=== PATIENT | male | born 1955 | race Caucasian/White ===

== ENCOUNTER → 2019-07-29 | Outpatient (CLI) | payer MEDICARE, BC | LOC: CARD 13:49 | PROVIDERS: ATTEND Family Medicine | DX: I51.7 Cardiomegaly (principal) | CPT/HCPCS: 93306 ==

== ENCOUNTER → 2019-12-23 | Outpatient (CLI) | payer MEDICARE, BC, OTHER ==
[2019-12-23 15:09] LABS: CARBON DIOXIDE 26 MMOL/L (21-32); CHLORIDE 84 MMOL/L (98-107); POTASSIUM 4.7 MMOL/L (3.6-5.0); SODIUM 123 MMOL/L (135-145)
[2019-12-23 15:10] LABS: ALANINE AMINOTRANSFERASE 26 U/L (0-55); ALBUMIN 3.9 GM/DL (3.2-4.5); ALKALINE PHOSPHATASE 73 U/L (40-136); BILIRUBIN,TOTAL 0.6 MG/DL (0.1-1.0); BUN/CREATININE RATIO 19; CALCIUM 8.8 MG/DL (8.5-10.1); GFR ESTIMATED > 60; GLUCOSE 133 MG/DL (70-105); TOTAL PROTEIN 6.5 GM/DL (6.4-8.2)
== END ==
LOC: LAB FS 13:54
PROVIDERS: ATTEND Nurse Practitioner
DX: R39.198 Other difficulties with micturition (principal)
CPT/HCPCS: 36415; 80053; 84153; 84154

== ENCOUNTER 2020-05-30 09:04 | Emergency (ER) | payer MEDICARE, BC, OTHER ==
[~2020-05-30] VITALS: Ht 170.1 cm; Wt 138.6 kg
[2020-05-30 09:10] VITALS: BP 113/61
[2020-05-30] MEDS ORDERED: BACI28.35 TP (09:43)
--- NOTE | 2020-05-30 09:43 | ED Integumentary General ---
General Chief Complaint: Skin/Wound Problems Stated Complaint: FINGER INJ Source: patient History of Present Illness Date Seen by Provider: May 30, 2020 Time Seen by Provider: 09:10 Initial Comments 65-year-old male presents with swelling and pain of his left ring finger as well as his ring has become increasingly tight over the past several years. Recently more swelling and has become intolerable pain as well as a wound that he noted around the ring. Allergies and Home Medications Home Medications Bacitracin/Polymyxin B Sulfate 28.3 Gm Oint...g., 28.3 GM TP BID Prescribed by: JULIENNE LYONS on 05/30/20 0943 Patient Home Medication List Home Medication List Reviewed: Yes Review of Systems Review of Systems Constitutional: No dizziness, No fever, No malaise, No weakness Musculoskeletal: other (Pain Left ring finger w ring entrapment) Past Sxfuymx-Bzmsnn-Isqfvh Hx Patient Social History Recent Foreign Travel: No Contact w/Someone Who Travel: No Physical Exam Vital Signs Capillary Refill : General Appearance: WD/WN, no apparent distress Extremities: normal range of motion, normal capillary refill, swelling (LH- ring finger), other (tight ring w moderate swelling. Patient requests removal. small skin wound without cellulitis at base of finger adjacent to ring. ) Neurologic/Psychiatric: no motor/sensory deficits Procedures/Interventions Progress Ring removed by nurse w manual ring cutter. pt tolerated well. Finger re- examined post removal. No significant wound and no sign of cellulitis. NVI Departure Impression Primary Impression: Tight ring on finger Additional Impression: Wound, open, finger Qualified Codes: S61.209A - Unspecified open wound of unspecified finger without damage to nail, initial encounter Disposition: 01 HOME, SELF-CARE Condition: Improved Departure-Patient Inst. Decision time for Depature: 09:42 Referrals: SELF,MATI FELIPE (PCP/Family) Primary Care Physician Patient Instructions: Wound Infection Scripts Bacitracin/Polymyxin B Sulfate (Polysporin Ointment) 28.3 Gm Oint...g. 28.3 GM TP BID, #1 TUBE Prov: JULIENNE LYONS DO 05/30/20 JULIENNE LYONS DO May 30, 2020 09:43
== END 2020-05-30 09:45 | disposition home or self-care (01) ==
LOC: EDUNIT# 09:04 → ER FS 09:06
DX: S60.445A External constriction of left ring finger, initial encounter (principal); S61.205A Unspecified open wound of left ring finger without damage to nail, initial encounter; W49.04XA Ring or other jewelry causing external constriction, initial encounter
CPT/HCPCS: 99282

== ENCOUNTER → 2020-06-21 | Outpatient (CLI) | payer MEDICARE, BC, OTHER ==
[~2020-06-21] MED LIST: BACI28.35 TP
--- NOTE | 2020-06-21 15:08 | Diagnostic Imaging Report ---
INDICATION: Back pain. EXAMINATION: Three views were obtained. FINDINGS: The alignment of the lumbar spine is normal. Vertebral body heights are well-maintained. No spondylolysis or spinal listhesis. No fractures are identified. There is lower lumbar hypertrophic degenerative facet disease. IMPRESSION: Diffuse lumbar spondylosis and multilevel degenerative disc disease as described. Dictated by: Dictated on workstation # [id number]
--- NOTE | 2020-06-21 15:31 | Diagnostic Imaging Report ---
INDICATION: Right shoulder pain. AP, and transscapular views of the right shoulder are obtained. No fracture or dislocation is seen. There is degenerative change of the glenohumeral joint and AC joint. IMPRESSION: Degenerative findings with no acute abnormality. Dictated by: Dictated on workstation # [id number]
== END ==
LOC: RAD FS 14:13
PROVIDERS: ATTEND Family Medicine
DX: M47.816 Spondylosis without myelopathy or radiculopathy, lumbar region (principal); M51.36 Other intervertebral disc degeneration, lumbar region; M19.011 Primary osteoarthritis, right shoulder
CPT/HCPCS: 72100; 73030

== ENCOUNTER 2020-07-02 05:37 | Inpatient (IN) | payer MEDICARE, BC, OTHER ==
[~2020-07-02] VITALS: Ht 177.8 cm; Wt 125.5 kg
--- NOTE | 2020-07-02 05:46 | NUR ---
This RN and Hermelinda RN were in the room speaking with the patient. Patient is very confused and will not answer questions appropriately. This RN asks the patient to lift up his right arm. Patient is unable to do so. Hermelinda RN holds patients arm in the air and asks him to hold it there for stroke assessment tool. Patient began to yell out. Arms went straight out and were stiff. Patient began holding breath and all muscles were tense. Patient is incontinent. Dr. Lopez comes in the room. 2mg of Ativan pulled and given for seizure activity.
[2020-07-02] MEDS ORDERED: LORazepam INJ 2 MG/ML (ATIVAN) VIAL ONE (05:47)
[2020-07-02] MEDS ORDERED: NALOXONE 0.4 MG/ML 1 ML (NARCAN) VIAL ONE (05:49)
[2020-07-02] MEDS ORDERED: NS IV 1000 ML 1,000 ML ONE (05:50)
[2020-07-02] MEDS ORDERED: LEVETIRACETAM INJECTION 1,000 MG in NS (IVPB) 100 ML IV STA (05:56)
[2020-07-02] MEDS ORDERED: NS IV 1000 ML 1,000 ML IV SCH (06:00)
[2020-07-02] MEDS ORDERED: LORazepam INJ 2 MG/ML (ATIVAN) VIAL IVP ONE ×3 (06:00→06:45)
[2020-07-02] MEDS ORDERED: NALOXONE 0.4 MG/ML 1 ML (NARCAN) VIAL IV ONE (06:00)
--- NOTE | 2020-07-02 06:02 | ED General ---
General Chief Complaint: Altered Mental Status Stated Complaint: FALL Source of Information: EMS, EMS Notes Reviewed, Family, Old Records, RN/MD, RN Notes Reviewed Exam Limitations: Other (mental status change) History of Present Illness Date Seen by Provider: Jul 02, 2020 Time Seen by Provider: 05:45 Initial Comments This patient is a 65-year-old male that presents to the emergency department complaining of mental status change. EMS was called facility with patient about home city the appear to be altered. Patient does take hydrocodone for chronic pain issues. Family member reports the patient's abdomen SINCE LAST NIGHT. UPON ARRIVAL TO THE EMERGENCY DEPARTMENT PATIENT AND GLUCOSE 172. PATIENT SUBSEQUENTLY APPEARED TO HAVE SEIZURE-LIKE ACTIVITY. PATIENT HAS NO HISTORY OF SEIZURE LIKE ACTIVITY HOWEVER HAS COMPLAINED OF HEADACHE FOR THE PAST 3-4 DAYS.. PATIENT SUBSEQUENTLY WENT POSTICTAL STILL HAVING NYSTAGMUS. PATIENT'S RESPIRATORY RATE APPEARS TO BE AROUND 20-2200% SAT. DID SUCTION AIRWAY DUE TO MUCUS. PULSE ox 100% on 2 L by nasal cannula. Patient does appear to have blood pressure 169/71. Pulse rate 73. Patient given one Ativan for Narcan. We'll do medical screening exam and evaluate treat further as needed. Again patient has no history of seizure activity Family reports in the past long-arm, alcoholic and usually drinks 1.75 L of o xygen over 2 day period. Family member state the patient did not have any alcohol yesterday. Family reports that the patient has had withdrawal seizures in the past. Timing/Duration: 4-6 Hours Severity: Moderate Associated Systoms: Seizure Allergies and Home Medications Allergies Coded Allergies: No Known Drug Allergies (Unverified , 05/30/20) Home Medications Bacitracin/Polymyxin B Sulfate 28.3 Gm Oint...g., 28.3 GM TP BID Prescribed by: JULIENNE LYONS on 05/30/20 0929 Patient Home Medication List Home Medication List Reviewed: Yes Review of Systems Review of Systems Constitutional: No no symptoms reported; see HPI; No chills, No diaphoresis, No dizziness, No fever; malaise; No weakness, No weight gain, No weight loss, No other EENTM: No see HPI, No no symptoms reported, No ear discharge, No hearing loss, No ear pain, No blurred vision, No double vision, No eye pain, No tearing, No vision loss, No dental problems, No hoarseness, No mouth pain, No mouth swelling, No epistaxis, No nose congestion, No nose pain, No throat pain, No throat swelling, No other Respiratory: No no symptoms reported, No see HPI, No cough, No dyspnea on exertion, No hemoptysis; orthopnea; No phlegm, No short of breath, No stridor, No wheezing, No other Cardiovascular: No no symptoms reported, No see HPI, No chest pain, No edema, No Hx of Intervention, No palpitations, No syncope, No vascular heart diseas, No other Gastrointestinal: No RUQ, No LUQ, No RLQ, No LLQ, No no symptoms reported, No see HPI, No abdominal pain, No constipation, No diarrhea, No dysphagia, No hematemesis, No heartburn, No jaundice, No loss of appetite, No melena, No nausea, No vomiting, No other Genitourinary: No no symptoms reported, No see HPI, No decreased output, No discharge, No dysuria, No frequency, No hematuria, No hesitancy, No inco ntinence, No nocturia, No pain, No other Musculoskeletal: No no symptoms reported; see HPI, back pain; No gout, No joint pain, No joint swelling, No muscle pain, No muscle stiffness, No muscle cramps, No muscle twitching, No muscle weakness, No neck pain, No other Skin: No no symptoms reported, No see HPI, No change in color, No change in hair/nails, No dryness, No hx of skin cancer, No lesions, No lumps, No pruritus, No rash, No other Psychiatric/Neurological: Denies No Symptoms Reported; See HPI; Denies Anxiety, Denies Depressed, Denies Emotional Problems, Denies Headache, Denies Numbness, Denies Paresthesia, Denies Pre-Existing Deficit; Seizure; Denies Tingling, Denies Tremors, Denies Weakness, Denies Other Hematologic/Lymphatic: Denies No Symptoms Reported, Denies See HPI, Denies Anemia, Denies Blood Clots, Denies Easy Bleeding, Denies Easy Bruising, Denies Swollen Glands, Denies Other All Other Systems Reviewed Negative Unless Noted: Yes Past Ekagqlc-Viuoui-Urwgmc Hx Patient Social History Alcohol Beverage of Choice: Vodka Type Used: Cigars Former Smoker, Quit: Apr 07, 2020 2nd Hand Smoke Exposure: Yes Recent Foreign Travel: No Contact w/Someone Who Travel: No Immunizations Up To Date Tetanus Booster (TDap): Unknown Physical Exam Vital Signs Vital Signs - First Documented 07/02/20 05:40 Pulse 71 Resp 18 Pulse Ox 99 O2 Delivery Nasal Cannula O2 Flow Rate 4.00 Capillary Refill : Height, Weight, BMI Height: '" Weight: lbs. oz. kg; 47.00 BMI Method: General Appearance: Obese, Other (altered mentation postictal) HEENT: TMs Normal, Normal ENT Inspection, Pharynx Normal Respiratory: Chest Non Tender, Lungs Clear, Normal Breath Sounds, No Accessory Muscle Use, No Respiratory Distress Cardiovascular: Regular Rate, Rhythm, No Edema, No Gallop, No JVD, No Murmur, Normal Peripheral Pulses Gastrointestinal: Normal Bowel Sounds, No Organomegaly, No Pulsatile Mass, Non Tender, Soft, Other (patient is morbidly obese) Neurologic/Psychiatric: Other (altered mental status. Patient moans spo ntaneously.) Skin: Normal Color, Warm/Dry Focused Exam Lactate Level 07/02/20 06:27: Lactic Acid Level 7.48*H Lactic Acid Level Laboratory Tests Test 07/02/20 06:27 Lactic Acid Level 7.48 MMOL/L (0.50-2.00) *H Progress/Results/Core Measures Suspected Sepsis SIRS Temperature: Pulse: Respiratory Rate: Laboratory Tests 07/02/20 05:50: White Blood Count 5.2 Blood Pressure / Mean: 07/02/20 06:27: Lactic Acid Level 7.48*H Laboratory Tests 07/02/20 05:50: Creatinine 5.99H, INR Comment 1.2, Platelet Count 111L, Total Bilirubin 2.0H Results/Orders Lab Results Laboratory Tests Test 07/02/20 05:50 07/02/20 06:27 07/02/20 06:34 07/02/20 07:05 Range/Units White Blood Count 5.2 4.3-11.0 10^3/uL Red Blood Count 2.80 L 4.35-5.85 10^6/uL Hemoglobin 9.9 L 13.3-17.7 G/DL Hematocrit 29 L 40-54 % Mean Corpuscular Volume 105 H 80-99 FL Mean Corpuscular Hemoglobin 35 H 25-34 PG Mean Corpuscular Hemoglobin Concent 34 32-36 G/DL Red Cell Distribution Width 16.7 H 10.0-14.5 % Platelet Count 111 L 130-400 10^3/uL Mean Platelet Volume 10.4 7.4-10.4 FL Immature Granulocyte % (Auto) 1 % Neutrophils (%) (Auto) 78 H 42-75 % Lymphocytes (%) (Auto) 12 12-44 % Monocytes (%) (Auto) 6 0-12 % Eosinophils (%) (Auto) 4 0-10 % Basophils (%) (Auto) 0 0-10 % Neutrophils # (Auto) 4.1 1.8-7.8 X 10^3 Lymphocytes # (Auto) 0.6 L 1.0-4.0 X 10^3 Monocytes # (Auto) 0.3 0.0-1.0 X 10^3 Eosinophils # (Auto) 0.2 0.0-0.3 10^3/uL Basophils # (Auto) 0.0 0.0-0.1 10^3/uL Immature Granulocyte # (Auto) 0.0 0.0-0.1 10^3/uL Prothrombin Time 15.8 H 12.2-14.7 SEC INR Comment 1.2 0.8-1.4 Sodium Level 126 L 135-145 MMOL/L Potassium Level 4.3 3.6-5.0 MMOL/L Chloride Level 83 L 98-107 MMOL/L Carbon Dioxide Level 17 L 21-32 MMOL/L Anion Gap 26 H 5-14 MMOL/L Blood Urea Nitrogen 70 H 7-18 MG/DL Creatinine 5.99 H 0.60-1.30 MG/DL Estimat Glomerular Filtration Rate 9 BUN/Creatinine Ratio 12 Glucose Level 169 H 70-105 MG/DL Calcium Level 8.8 8.5-10.1 MG/DL Corrected Calcium 9.0 8.5-10.1 MG/DL Total Bilirubin 2.0 H 0.1-1.0 MG/DL Aspartate Amino Transf (AST/SGOT) 30 5-34 U/L Alanine Aminotransferase (ALT/SGPT) 28 0-55 U/L Alkaline Phosphatase 138 H 40-136 U/L Troponin I < 0.30 <0.30 NG/ML Pro-B-Type Natriuretic Peptide 1710.0 H <75.0 PG/ML Total Protein 7.5 6.4-8.2 GM/DL Albumin 3.7 3.2-4.5 GM/DL Serum Alcohol < 10 <10 MG/DL Lactic Acid Level 7.48 *H 0.50-2.00 MMOL/L Urine Color DARK YELLOW Urine Clarity CLEAR Urine pH 5.5 5-9 Urine Specific [place] 1.025 H 1.016-1.022 Urine Protein 1+ H NEGATIVE Urine Glucose (UA) NEGATIVE NEGATIVE Urine Ketones NEGATIVE NEGATIVE Urine Nitrite NEGATIVE NEGATIVE Urine Bilirubin 1+ H NEGATIVE Urine Urobilinogen 1.0 < = 1.0 MG/DL Urine Leukocyte Esterase TRACE H NEGATIVE Urine RBC (Auto) 2+ H NEGATIVE Urine RBC NONE /HPF Urine WBC 5-10 H /HPF Urine Squamous Epithelial Cells 2-5 /HPF Urine Crystals PRESENT H /LPF Urine Amorphous Sediment LARGE HARRISON URATES H /LPF Urine Bacteria FEW H /HPF Urine Casts PRESENT /LPF Urine Hyaline Casts 5-10 H /LPF Urine Mucus NEGATIVE /LPF Urine Culture Indicated YES Urine Opiates Screen POSITIVE H NEGATIVE Urine Oxycodone Screen NEGATIVE NEGATIVE Urine Methadone Screen NEGATIVE NEGATIVE Urine Propoxyphene Screen NEGATIVE NEGATIVE Urine Barbiturates Screen NEGATIVE NEGATIVE Ur Tricyclic Antidepressants Screen NEGATIVE NEGATIVE Urine Phencyclidine Screen NEGATIVE NEGATIVE Urine Amphetamines Screen NEGATIVE NEGATIVE Urine Methamphetamines Screen NEGATIVE NEGATIVE Urine Benzodiazepines Screen NEGATIVE NEGATIVE Urine Cocaine Screen NEGATIVE NEGATIVE Urine Cannabinoids Screen POSITIVE H NEGATIVE Blood Gas Puncture Site LEFT WRIST Blood Gas Patient Temperature 35.9 Arterial Blood pH 7.32 *L 7.37-7.43 Arterial Blood Partial Pressure CO2 41 35-45 MMHG Arterial Blood Partial Pressure O2 95 H 79-93 MMHG Arterial Blood HCO3 21 L 23-27 MMOL/L Arterial Blood Total CO2 22.4 21.0-31.0 MMOL/L Arterial Blood Oxygen Saturation 97 94-100 % Arterial Blood Base Excess -4.7 L -2.5-2.5 MMOL/L Pernell Test NEG Blood Gas Ventilator Setting NO Blood Gas Inspired Oxygen 99 My Orders Orders - AYDE ROMERO MD Ct Head Wo (07/02/20 05:52) Cbc With Automated Diff (07/02/20 05:52) Comprehensive Metabolic Panel (07/02/20 05:52) Chest 1 View Ap/Pa Only (07/02/20 05:52) Drug Screen Stat (Urine) (07/02/20 05:52) Urinalysis (07/02/20 05:52) Lactic Acid Analyzer (07/02/20 05:52) Arterial Blood Gas (07/02/20 05:52) Protime With Inr (07/02/20 05:52) Probnp Fs (07/02/20 05:52) Troponin I Fs (07/02/20 05:52) Lorazepam Injection (Ativan Injection) (07/02/20 06:00) Ns Iv 1000 Ml (Sodium Chloride 0.9%) (07/02/20 06:00) Naloxone Injection (Narcan Injection) (07/02/20 06:00) Lorazepam Injection (Ativan Injection) (07/02/20 06:00) Levetiracetam Injection (Keppra Injectio (07/02/20 05:56) Ekg Tracing (07/02/20 06:11) Ed Iv/Invasive Line Start (07/02/20 06:20) Lorazepam Injection (Ativan Injection) (07/02/20 06:45) Alcohol (07/02/20 06:39) Ziprasidone Injection (Geodon Injection) (07/02/20 06:46) Water (Sterile) For Injection (Sterile W (07/02/20 06:47) Ns Iv 500 Ml (Sodium Chloride 0.9%) (07/02/20 06:47) Ziprasidone Injection (Geodon Injection) (07/02/20 06:47) Ziprasidone Injection (Geodon Injection) (07/02/20 07:00) Urine Culture (07/02/20 06:34) Ziprasidone Injection (Geodon Injection) (07/02/20 07:00) Ceftriaxone For Iv Use (Rocephin For I (07/02/20 07:15) Blood Culture (07/02/20 07:03) Medications Given in ED Current Medications Medications Dose Ordered Sig/Ngozi Route Start Time Stop Time Status Last Admin Dose Admin Ceftriaxone Sodium 1000 mg/ Sterile Water 10 ml @ 200 mls/hr ONCE ONCE IV 07/02/20 07:15 07/02/20 07:17 DC 07/02/20 07:22 200 MLS/HR Lorazepam 1 mg ONCE ONCE IVP 07/02/20 06:45 07/02/20 06:46 DC 07/02/20 06:42 1 MG Lorazepam 2 mg ONCE ONCE IVP 07/02/20 06:00 07/02/20 06:01 DC 07/02/20 05:59 2 MG Naloxone HCl 0.4 mg ONCE ONCE IV 07/02/20 06:00 07/02/20 06:01 DC 07/02/20 05:59 0.4 MG Sterile Water 10 ml @ ud STK-MED ONCE .ROUTE 07/02/20 06:47 07/02/20 06:48 DC 07/02/20 07:07 1 MLS/HR Ziprasidone 20 mg STK-MED ONCE IM 07/02/20 06:46 07/02/20 06:47 DC 07/02/20 07:06 20 MG Vital Signs/I&O 07/02/20 05:40 Pulse 71 Resp 18 B/P (MAP) Pulse Ox 99 O2 Delivery Nasal Cannula O2 Flow Rate 4.00 Capillary Refill : Progress Note : Time: 07:06 Progress Note Patient is awake but does appear to be some combativeness issues. Patient has received a total of 3 of Ativan thousand Keppra and we'll give to the Arleen. Patient pulling his Fernandez and is IV catheters. Appears patient has had a withdrawal seizure related to alcohol abuse. Patient also appears to be in acute renal failure. Creatinine is 5.99. Baseline creatinine back in December 2019 creatinine was 0.70. Patient reportedly drinks 1.75 L of vodka every 2 days. Has not had any alcohol in greater than 24 hours. Patient's sodium level was low at 126 which appears to be chronic and consistent with patient's history. Patient does have a lactic acid level of 7.48 does not appear to be septic. Patient has had 1 L fluid bolus was running in the 100 and hour normal saline at this time. Blood cultures have been drawn and patient be given 1 g of Rocephin. But again I do not believe this patient is septic. Believe most likely the lactic acid level is most likely related to severe dehydration. I will discuss at length with hospitalist for transfer to [facility]. 0715 I have discussed with Dr. Ernst [facility]. We discussed patient's case. She is agreeable to accept this patient for transfer to the ICU. Patient be transferred as soon as possible. ECG Initial ECG Impression Date: Jul 02, 2020 Initial ECG Impression Time: 05:53 Initial ECG Rate: 71 Initial ECG Intervals: Normal Initial ECG Impression: Nonspecific Changes Comment Sinus rhythm heart rate 71 nonspecific EKG changes Departure Impression Primary Impression: Observed seizure-like activity Additional Impressions: Alcohol withdrawal seizure Alcohol withdrawal delirium Acute renal failure Acute dehydration Lactic acidosis Chronic hyponatremia Chronic pain Chronic alcohol abuse Disposition: 02 XFER SHT-TRM HOSP Condition: Stable Admissions Decision to Admit Reason: Admit from ER (General) Decision to Admit/Date: Jul 02, 2020 Time/Decision to Admit Time: 07:15 Transfer Transfer Reason: Exceeds level of care Time Spoke to Accepting Phy: 07:[address] Ernst [facility] has accepted this patient for transfer Transfer Time: 07:15 Transfer Facility: [facility] Method of Transfer: EMS Departure-Patient Inst. Referrals: MATI GRAHAM MD (PCP/Family) Primary Care Physician AYDE ROMERO MD Jul 02, 2020 06:02
[2020-07-02 06:06] LABS: HEMATOCRIT 29 % (40-54); HEMOGLOBIN 9.9 G/DL (13.3-17.7); MEAN CORPUSCULAR HEMOGLOBIN 35 PG (25-34); MEAN CORPUSCULAR HGB CONC 34 G/DL (32-36); MEAN CORPUSCULAR VOLUME 105 FL (80-99); WHITE BLOOD COUNT 5.2 10^3/uL (4.3-11.0)
[2020-07-02 06:07] LABS: BASOPHILS % (AUTO) 0 % (0-10); EOSINOPHILS # (AUTO) 0.2 10^3/uL (0.0-0.3); EOSINOPHILS % (AUTO) 4 % (0-10); LYMPHOCYTES # (AUTO) 0.6 X 10^3 (1.0-4.0); LYMPHOCYTES % (AUTO) 12 % (12-44); MEAN PLATELET VOLUME 10.4 FL (7.4-10.4); MONOCYTES # (AUTO) 0.3 X 10^3 (0.0-1.0); MONOCYTES % (AUTO) 6 % (0-12); NEUTROPHILS # (AUTO) 4.1 X 10^3 (1.8-7.8); NEUTROPHILS % (AUTO) 78 % (42-75); PLATELET COUNT 111 10^3/uL (130-400)
[2020-07-02 06:15] LABS: PROTHROMBIN TIME PATIENT 15.8 SEC (12.2-14.7)
[2020-07-02 06:16] LABS: INR 1.2 (0.8-1.4)
[2020-07-02 06:26] LABS: ALANINE AMINOTRANSFERASE 28 U/L (0-55); ALBUMIN 3.7 GM/DL (3.2-4.5); ALKALINE PHOSPHATASE 138 U/L (40-136); BUN/CREATININE RATIO 12; CALCIUM 8.8 MG/DL (8.5-10.1); CARBON DIOXIDE 17 MMOL/L (21-32); CHLORIDE 83 MMOL/L (98-107); CREATININE SERUM 5.99 MG/DL (0.60-1.30); GFR ESTIMATED 9; GLUCOSE 169 MG/DL (70-105); POTASSIUM 4.3 MMOL/L (3.6-5.0); SODIUM 126 MMOL/L (135-145); TOTAL PROTEIN 7.5 GM/DL (6.4-8.2)
--- NOTE | 2020-07-02 06:38 | Diagnostic Imaging Report ---
INDICATION: Dyspnea and seizure Single AP view of the chest is obtained. There is no previous study for comparison. There is mild cardiomegaly. Pulmonary vascularity is unremarkable. There is no evidence of pneumothorax or focal consolidation. IMPRESSION: Cardiomegaly. Otherwise no definite acute abnormality is seen on the single portable view. Dictated by: Dictated on workstation # [id number]
[2020-07-02] MEDS ORDERED: ZIPRASIDONE 20 MG INJ (GEODON) VIAL IM ONE (06:46)
[2020-07-02] MEDS ORDERED: NS IV 500 ML 500 ML IV STA (06:47)
[2020-07-02] MEDS ORDERED: WATER (STERILE) FOR INJECTION 10 ML ONE (06:47)
[2020-07-02] MEDS ORDERED: ZIPRASIDONE INJECTION 10 MG in WATER (STERILE) FOR INJECTION 1.2 ML IM STA (06:47)
[2020-07-02 06:55] LABS: CLARITY,URINE CLEAR; COLOR,URINE DARK YELLOW; PH,URINE 5.5 (5-9); PROTEIN,URINE 1+ (NEGATIVE)
[2020-07-02 06:56] LABS: AMORPHOUS SEDIMENT,UR LARGE AMOR URATES /LPF; BACTERIA,URINE FEW /HPF; BILIRUBIN,URINE 1+ (NEGATIVE); GLUCOSE, URINE (UA) NEGATIVE (NEGATIVE); KETONES,URINE NEGATIVE (NEGATIVE); LEUKOCYTE ESTERASE ,URINE TRACE (NEGATIVE); NITRITE,URINE NEGATIVE (NEGATIVE)
[2020-07-02 06:58] LABS: AMPHETAMINE SCREEN, URINE NEGATIVE (NEGATIVE); BARBITURATE SCREEN URINE NEGATIVE (NEGATIVE); BENZODIAZEPINES SCREEN URINE NEGATIVE (NEGATIVE); CANNABINOID SCREEN, URINE POSITIVE (NEGATIVE); COCAINE SCREEN URINE NEGATIVE (NEGATIVE); METHADONE STAT NEGATIVE (NEGATIVE); METHAMPHETAMINE SCREEN URINE S NEGATIVE (NEGATIVE); OPIATE SCREEN URINE POSITIVE (NEGATIVE); OXYCODONE STAT NEGATIVE (NEGATIVE); PROPOXYPHENE STAT NEGATIVE (NEGATIVE); TRICYCLIC ANTIDEPRESSANTS SCRE NEGATIVE (NEGATIVE)
[2020-07-02] MEDS ORDERED: ZIPRASIDONE INJECTION 20 MG in WATER (STERILE) FOR INJECTION 1.2 ML IM ONE ×4 (07:00)
--- NOTE | 2020-07-02 07:01 | Diagnostic Imaging Report ---
PROCEDURE: CT head without contrast. TECHNIQUE: Multiple contiguous axial images were obtained through the brain without the use of intravenous contrast. Auto Exposure Controls were utilized during the CT exam to meet ALARA standards for radiation dose reduction. INDICATION: Seizure Study is significantly limited by motion. Ventricles and sulci appear to be within normal limits for size. No hemorrhage is detected. There is no abnormal mass effect or shift of midline structures. IMPRESSION: No acute intracranial abnormality seen on limited study. Dictated by: Dictated on workstation # [id number]
[2020-07-02 07:12] LABS: ABG BASE EXCESS -4.7 MMOL/L (-2.5-2.5); ABG OXYGEN SATURATION 97 % (94-100); ABG PCO2 41 MMHG (35-45); ABG PO2 95 MMHG (79-93); ABG TCO2 22.4 MMOL/L (21.0-31.0)
[2020-07-02 07:13] LABS: ALLENS TEST NEG; INSPIRED O2 99; VENTILATOR NO
[2020-07-02 07:14] LABS: ABG PH 7.32 (7.37-7.43); PATIENT TEMP 35.9
[2020-07-02] MEDS ORDERED: cefTRIAXone FOR IV USE 1,000 MG in WATER (STERILE) FOR INJECTION 10 ML IV ONE (07:15)
[2020-07-02] MEDS ORDERED: DexMEDEtomidine PRE MIX 100 ML IV ONE (10:25)
[2020-07-02] MEDS ORDERED: 1/2 NS IV SOLUTION 1,000 ML IV PRN (10:41)
[2020-07-02] MEDS ORDERED: LORazepam INJ 2 MG/ML (ATIVAN) VIAL IM/IV PRN (10:45)
[2020-07-02] MEDS ORDERED: SENNA W/DOCUSATE (SENOKOT S) TABLET PO PRN (10:45)
[2020-07-02] MEDS ORDERED: D5 1/2 NS 1000 ML IV SOLUTION 1,000 ML IV PRN (10:45)
[2020-07-02] MEDS ORDERED: ONDANSETRON 4 MG/2 ML (SDV) Z0FRAN IV PRN (10:45)
[2020-07-02] MEDS ORDERED: ANTACID SUSP 30 ML UDC (MYLANTA) PO PRN (10:45)
[2020-07-02] MEDS ORDERED: ONDANSETRON 4 MG (ZOFRAN) ORAL DISSOLVE TAB SL PRN (10:45)
[2020-07-02] MEDS ORDERED: LORazepam INJ 2 MG/ML (ATIVAN) VIAL IV PRN (10:45)
[2020-07-02] MEDS ORDERED: LORazepam 1 MG (ATIVAN) TAB PO PRN (10:45)
[2020-07-02] MEDS: THIAMINE INJECTION 100 MG, FOLIC ACID INJECTION 1 MG, MAGNESIUM SULFATE 2 GM, VITAMIN M... IV SCH ×5 (12:53)
[2020-07-02] MEDS: DexMEDEtomidine PRE MIX 100 ML IV SCH ×3 (12:55→22:46)
[2020-07-02 13:16] LABS: POTASSIUM 4.2 MMOL/L (3.6-5.0)
[2020-07-02 13:18] LABS: CALCIUM 8.1 MG/DL (8.5-10.1)
[2020-07-02 13:22] LABS: CREATININE SERUM 5.66 MG/DL (0.60-1.30)
[2020-07-02] MEDS ORDERED: NS IV 500 ML 500 ML ONE (14:20)
--- NOTE | 2020-07-02 14:26 | Pulmonary Consultation ---
History of Present Illness History of Present Illness Date Seen by Provider: Jul 02, 2020 Time Seen by Provider: 14:23 Date of Admission Allergies and Home Medications Allergies Coded Allergies: No Known Drug Allergies (Unverified , 05/30/20) Home Medications Bacitracin/Polymyxin B Sulfate 28.3 Gm Oint...g., 28.3 GM TP BID Prescribed by: JULIENNE LYONS on 05/30/20 0943 Past Nsiiveb-Ndfonl-Ntqejw Hx Patient Social History Alcohol Use: Regular Use Alcohol Beverage of Choice: Vodka Recreational Drug Use: No Smoking Status: Current Everyday Smoker Type Used: Cigars Former Smoker, Quit: Apr 07, 2020 2nd Hand Smoke Exposure: Yes Recent Foreign Travel: No Contact w/Someone Who Travel: No Recent Infectious Disease Expo: No Physical Abuse: No Sexual Abuse: No Mistreated: No Fear: No Immunizations Up To Date Tetanus Booster (TDap): Unknown Past Medical History Surgeries: Yes Orthopedic Respiratory: No Cardiac: Yes Hypertension Neurological: No Genitourinary: No Gastrointestinal: No Musculoskeletal: Yes Chronic Back Pain Endocrine: No HEENT: No Cancer: No Psychosocial: No Integumentary: Yes Review of Systems Time Seen by Provider: 14:23 Sepsis Event Evaluation Height, Weight, BMI Height: '" Weight: lbs. oz. kg; 40.17 BMI Method: Exam Exam Vital Signs Date Time Temp Pulse Resp B/P (MAP) Pulse Ox O2 Delivery O2 Flow Rate FiO2 07/02/20 12:55 63 07/02/20 11:00 60 26 123/59 96 Nasal Cannula 2.00 07/02/20 10:30 69 19 113/99 100 Nasal Cannula 2.00 07/02/20 09:30 36.0 55 17 94/55 95 07/02/20 05:40 71 18 99 Nasal Cannula 4.00 I & O 07/02/20 07:00 Intake Total 1110 ml Balance 1110 ml Height & Weight Height: '" Weight: lbs. oz. kg; 40.17 BMI Method: General Appearance: Obese, Other (altered mentation postictal) HEENT: TMs Normal, Normal ENT Inspection, Pharynx Normal Respiratory: Chest Non Tender, Lungs Clear, Normal Breath Sounds, No Accessory Muscle Use, No Respiratory Distress Cardiovascular: Regular Rate, Rhythm, No Edema, No Gallop, No JVD, No Murmur, Normal Peripheral Pulses Capillary Refill: Less Than 3 Seconds Neurologic/Psychiatric: Other (altered mental status. Patient moans spontaneously.) Skin: Normal Color, Warm/Dry Results Lab Laboratory Tests 07/02/20 05:50 07/02/20 10:55 Assessment/Plan Assessment/Plan Acute alcohol withdrawal s/p seizure -Seizure precautions -CT head is negative. -CIWA -Currently requiring Precedex Acute renal failure -IVF increase to 150 and give a liter bolus Acute dehydration -IVF Hyponatremia -Monitor Anemia -Monitor morbid obesity ANA ROSA SNOW DO Jul 02, 2020 14:26
[2020-07-02] MEDS ORDERED: LACTATED RINGERS 1,000 ML IV ONE (14:30)
[2020-07-02] MEDS ORDERED: FLU QUAD HIGH DOSE 240 MCG/0.7 ML 2020-21 (FLUZONE) IM ONE (15:15)
--- NOTE | 2020-07-02 16:10 | History & Physical ---
HPI History of Present Illness: 65 yo M with known EtOH dependence that was seen in ER after EtOH withdraw seizure. states that patient drinks a handle in 2 days and has not drank for alittle over 24 hrs. Patient currently sedated and unable to provide additional history. Source: family, spouse Exam Limitations: clinical condition Date seen by provider: Jul 02, 2020 Time Seen by Provider: 12:15 Attending Physician Jm Ernst MD PCP Lj Maldonado MD Consult Date of Admission Jul 02, 2020 at 10:21 Home Medications Home Medications Reviewed patient Home Medication Reconciliation performed by pharmacy medication reconciliations machine tool technician instructor and/or nursing. Patients Allergies have been reviewed. Allergies Coded Allergies: No Known Drug Allergies (Unverified , 05/30/20) KSM-Tbqnbr-Uvupao Hx Patient Social History Alcohol Use: Regular Use Recreational Drug Use: No Smoking Status: Current Everyday Smoker Type Used: Cigars 2nd Hand Smoke Exposure: Yes Recent Foreign Travel: No Contact w/other who traveled: No Recent Infectious Disease Expo: No Immunizations Up To Date Tetanus Booster (TDap): Unknown Past Medical History EtOH Dependence Review of Systems ([facility]) Constitutional: other Other Unable to obtain due to altered mental status Reviewed Test Results Reviewed Test Results Lab Laboratory Tests Test 07/02/20 05:50 07/02/20 06:27 07/02/20 06:34 07/02/20 07:05 Range/Units White Blood Count 5.2 4.3-11.0 10^3/uL Red Blood Count 2.80 L 4.35-5.85 10^6/uL Hemoglobin 9.9 L 13.3-17.7 G/DL Hematocrit 29 L 40-54 % Mean Corpuscular Volume 105 H 80-99 FL Mean Corpuscular Hemoglobin 35 H 25-34 PG Mean Corpuscular Hemoglobin Concent 34 32-36 G/DL Red Cell Distribution Width 16.7 H 10.0-14.5 % Platelet Count 111 L 130-400 10^3/uL Mean Platelet Volume 10.4 7.4-10.4 FL Immature Granulocyte % (Auto) 1 % Neutrophils (%) (Auto) 78 H 42-75 % Lymphocytes (%) (Auto) 12 12-44 % Monocytes (%) (Auto) 6 0-12 % Eosinophils (%) (Auto) 4 0-10 % Basophils (%) (Auto) 0 0-10 % Neutrophils # (Auto) 4.1 1.8-7.8 X 10^3 Lymphocytes # (Auto) 0.6 L 1.0-4.0 X 10^3 Monocytes # (Auto) 0.3 0.0-1.0 X 10^3 Eosinophils # (Auto) 0.2 0.0-0.3 10^3/uL Basophils # (Auto) 0.0 0.0-0.1 10^3/uL Immature Granulocyte # (Auto) 0.0 0.0-0.1 10^3/uL Prothrombin Time 15.8 H 12.2-14.7 SEC INR Comment 1.2 0.8-1.4 Sodium Level 126 L 135-145 MMOL/L Potassium Level 4.3 3.6-5.0 MMOL/L Chloride Level 83 L 98-107 MMOL/L Carbon Dioxide Level 17 L 21-32 MMOL/L Anion Gap 26 H 5-14 MMOL/L Blood Urea Nitrogen 70 H 7-18 MG/DL Creatinine 5.99 H 0.60-1.30 MG/DL Estimat Glomerular Filtration Rate 9 BUN/Creatinine Ratio 12 Glucose Level 169 H 70-105 MG/DL Calcium Level 8.8 8.5-10.1 MG/DL Corrected Calcium 9.0 8.5-10.1 MG/DL Total Bilirubin 2.0 H 0.1-1.0 MG/DL Aspartate Amino Transf (AST/SGOT) 30 5-34 U/L Alanine Aminotransferase (ALT/SGPT) 28 0-55 U/L Alkaline Phosphatase 138 H 40-136 U/L Troponin I < 0.30 <0.30 NG/ML Pro-B-Type Natriuretic Peptide 1710.0 H <75.0 PG/ML Total Protein 7.5 6.4-8.2 GM/DL Albumin 3.7 3.2-4.5 GM/DL Serum Alcohol < 10 <10 MG/DL Lactic Acid Level 7.48 *H 0.50-2.00 MMOL/L Urine Color DARK YELLOW Urine Clarity CLEAR Urine pH 5.5 5-9 Urine Specific [place] 1.025 H 1.016-1.022 Urine Protein 1+ H NEGATIVE Urine Glucose (UA) NEGATIVE NEGATIVE Urine Ketones NEGATIVE NEGATIVE Urine Nitrite NEGATIVE NEGATIVE Urine Bilirubin 1+ H NEGATIVE Urine Urobilinogen 1.0 < = 1.0 MG/DL Urine Leukocyte Esterase TRACE H NEGATIVE Urine RBC (Auto) 2+ H NEGATIVE Urine RBC NONE /HPF Urine WBC 5-10 H /HPF Urine Squamous Epithelial Cells 2-5 /HPF Urine Crystals PRESENT H /LPF Urine Amorphous Sediment LARGE HARRISON URATES H /LPF Urine Bacteria FEW H /HPF Urine Casts PRESENT /LPF Urine Hyaline Casts 5-10 H /LPF Urine Mucus NEGATIVE /LPF Urine Culture Indicated YES Urine Opiates Screen POSITIVE H NEGATIVE Urine Oxycodone Screen NEGATIVE NEGATIVE Urine Methadone Screen NEGATIVE NEGATIVE Urine Propoxyphene Screen NEGATIVE NEGATIVE Urine Barbiturates Screen NEGATIVE NEGATIVE Ur Tricyclic Antidepressants Screen NEGATIVE NEGATIVE Urine Phencyclidine Screen NEGATIVE NEGATIVE Urine Amphetamines Screen NEGATIVE NEGATIVE Urine Methamphetamines Screen NEGATIVE NEGATIVE Urine Benzodiazepines Screen NEGATIVE NEGATIVE Urine Cocaine Screen NEGATIVE NEGATIVE Urine Cannabinoids Screen POSITIVE H NEGATIVE Blood Gas Puncture Site LEFT WRIST Blood Gas Patient Temperature 35.9 Arterial Blood pH 7.32 *L 7.37-7.43 Arterial Blood Partial Pressure CO2 41 35-45 MMHG Arterial Blood Partial Pressure O2 95 H 79-93 MMHG Arterial Blood HCO3 21 L 23-27 MMOL/L Arterial Blood Total CO2 22.4 21.0-31.0 MMOL/L Arterial Blood Oxygen Saturation 97 94-100 % Arterial Blood Base Excess -4.7 L -2.5-2.5 MMOL/L Pernell Test NEG Blood Gas Ventilator Setting NO Blood Gas Inspired Oxygen 99 Test 07/02/20 08:35 07/02/20 10:55 Range/Units Lactic Acid Level 2.36 *H 1.54 0.50-2.00 MMOL/L Sodium Level 127 L 135-145 MMOL/L Potassium Level 4.2 3.6-5.0 MMOL/L Chloride Level 89 L 98-107 MMOL/L Carbon Dioxide Level 22 21-32 MMOL/L Anion Gap 16 H 5-14 MMOL/L Blood Urea Nitrogen 71 H 7-18 MG/DL Creatinine 5.66 H 0.60-1.30 MG/DL Estimat Glomerular Filtration Rate 10 BUN/Creatinine Ratio 13 Glucose Level 111 H 70-105 MG/DL Calcium Level 8.1 L 8.5-10.1 MG/DL Physical Exam-([facility]C) Physical Exam Vital Signs VS - Last 72 Hours, by Label 07/02/20 07/02/20 07/02/20 07/02/20 05:40 09:30 10:30 10:30 Temp 36.0 Pulse 71 55 69 Resp 18 17 19 B/P (MAP) 94/55 113/99 Pulse Ox 99 95 96 100 O2 Delivery Nasal Cannula Nasal Cannula Nasal Cannula O2 Flow Rate 4.00 2.00 2.00 07/02/20 07/02/20 07/02/20 07/02/20 10:38 11:00 12:47 12:55 Pulse 63 60 56 63 Resp 26 B/P (MAP) 123/59 Pulse Ox 96 O2 Delivery Nasal Cannula O2 Flow Rate 2.00 07/02/20 15:48 Temp 36.5 Capillary Refill : Less Than 3 Seconds General Appearance: other (Sedated) Respiratory: chest non-tender, lungs clear, normal breath sounds, no respirato ry distress, no accessory muscle use Cardiovascular: regular rate, rhythm, no edema Gastrointestinal: normal bowel sounds, soft, distended; No guarding Extremities: normal capillary refill, pedal edema (Left 2+ pitting edema, Right 1+ pitting edema) Neurologic/Psychiatric: other (Sedated) Assessment/Plan Assessment/Plan Admission Status: Inpatient Order (span 2 midnights) Reason for Inpatient Admission: Requiring ICU monitoring following seizure (1) Alcohol withdrawal seizure Status: Acute Assessment & Plan: - Requiring ICU care, currently sedated, Banana bag ordered, CIWS protocol, Sz precautions Qualifiers: Qualified Codes: F10.239 - Alcohol dependence with withdrawal, unspecified; R56.9 - Unspecified convulsions (2) Acute renal failure Status: Acute Assessment & Plan: -severe dehydration, continue IVFs and monitor (3) Lactic acidosis Status: Resolved (4) Chronic hyponatremia Status: Acute (5) Elevated brain natriuretic peptide (BNP) level Assessment & Plan: - Will get Echo in AM, monitor respiratory status with ARF and patient requiring fluids (6) Macrocytic anemia Status: Chronic Clinical Quality Measures DVT/VTE Risk/Contraindication: Risk Factor Score Per Nursin RFS Level Per Nursing on Admit: 4+=Very High JM ERNST MD Jul 02, 2020 16:10
--- NOTE | 2020-07-02 16:48 | Diagnostic Imaging Report ---
EXAM: ABDOMEN COMPLETE ULTRASOUND. DATE: July 02, 2020. COMPARISON: None. INDICATION: 65-year-old male, ascites. Acute renal failure. PROCEDURE: Two-dimensional ultrasound examination of the abdomen is performed. FINDINGS: Liver: The liver is diffusely increased in echogenicity relative to the right kidney, consistent with diffuse fatty infiltration of the liver. There is no sonographically demonstrated liver lesion. The main portal vein is patent. Bile ducts and gallbladder: There is no pericholecystic fluid, gallbladder wall thickening or gallstones. The gallbladder wall measures 0.2 cm. There is no intrahepatic bile duct dilation. The common bile duct is not well seen. Spleen: The spleen does measure up to maximally 16.3 cm in length and is mildly enlarged. Right kidney: The right kidney is of normal size and contour with good corticomedullary differentiation. There are no shadowing calculi or cortical deforming solid or cystic masses. No hydronephrosis. The right kidney measures 11.4 cm x 6.5 cm x 5.7 cm. Left kidney: The left kidney is located in the pelvis. There is no demonstrated left renal mass or hydronephrosis. The left kidney measures 12.8 x 5.5 x 6.8 cm in size. Pancreas: The pancreas is not well seen. Aorta: The aorta is of normal caliber. Inferior vena cava: The inferior vena cava is of normal caliber. There is minimal ascites. IMPRESSION: 1. Minimal ascites. 2. Diffuse fatty infiltration of the liver. 3. Mild splenomegaly. 4. Unremarkable sonographic appearance of the renal parenchyma. 5. No hydronephrosis. Dictated by: Dictated on workstation # [id number]
[2020-07-02] MEDS: NS IV 1000 ML 1,000 ML IV SCH ×3 (17:59→21:09)
[2020-07-03] MEDS: DexMEDEtomidine PRE MIX 100 ML IV SCH (03:13)
[2020-07-03 03:28] LABS: BASOPHILS % (AUTO) 0 % (0-10); EOSINOPHILS # (AUTO) 0.1 10^3/uL (0.0-0.3); EOSINOPHILS % (AUTO) 3 % (0-10); HEMATOCRIT 25 % (40-54); HEMOGLOBIN 9.1 g/dL (13.3-17.7); LYMPHOCYTES # (AUTO) 0.3 10^3/uL (1.0-4.0); LYMPHOCYTES % (AUTO) 7 % (12-44); MEAN CORPUSCULAR HEMOGLOBIN 36 pg (25-34); MEAN CORPUSCULAR HGB CONC 36 g/dL (32-36); MEAN CORPUSCULAR VOLUME 99 fL (80-99); MEAN PLATELET VOLUME 10.7 fL (9.0-12.2); MONOCYTES # (AUTO) 0.3 10^3/uL (0.0-1.0); MONOCYTES % (AUTO) 8 % (0-12); NEUTROPHILS # (AUTO) 3.1 10^3/uL (1.8-7.8); NEUTROPHILS % (AUTO) 82 % (42-75); PLATELET COUNT 92 10^3/uL (130-400); WHITE BLOOD COUNT 3.8 10^3/uL (4.3-11.0)
[2020-07-03 04:10] LABS: CALCIUM 7.9 MG/DL (8.5-10.1); CREATININE SERUM 4.7 MG/DL (0.60-1.30); MAGNESIUM 2.7 MG/DL (1.6-2.4); PHOSPHORUS 4.9 MG/DL (2.3-4.7); POTASSIUM 4.2 MMOL/L (3.6-5.0)
[2020-07-03] MEDS ORDERED: NS IV 1000 ML 1,000 ML IV SCH (06:45)
--- NOTE | 2020-07-03 06:45 | Pulmonary Progress Note ---
Subjective Time Seen by a Provider: 06:42 Subjective/Events-last exam Pt is sedated. Sepsis Event Evaluation Height, Weight, BMI Height: '" Weight: lbs. oz. kg; 40.17 BMI Method: Focused Exam Lactate Level 07/02/20 06:27: Lactic Acid Level 7.48*H 07/02/20 08:35: Lactic Acid Level 2.36*H 07/02/20 10:55: Lactic Acid Level 1.54 Exam Exam Vital Signs Date Time Temp Pulse Resp B/P (MAP) Pulse Ox O2 Delivery O2 Flow Rate FiO2 07/03/20 04:00 60 24 109/64 98 Nasal Cannula 2.00 07/03/20 04:00 36.8 07/03/20 03:13 61 07/03/20 03:00 63 25 126/64 97 Nasal Cannula 2.00 07/03/20 02:00 61 21 121/69 94 Nasal Cannula 2.00 07/03/20 01:00 61 22 118/73 95 Nasal Cannula 2.00 07/03/20 01:00 61 07/03/20 00:32 36.3 07/03/20 00:00 61 21 115/68 96 Nasal Cannula 2.00 07/02/20 23:00 66 30 133/79 96 Nasal Cannula 2.00 07/02/20 22:46 61 07/02/20 22:00 62 20 114/69 96 Nasal Cannula 2.00 07/02/20 21:09 36.4 64 23 124/70 99 Nasal Cannula 2.00 07/02/20 21:00 Nasal Cannula 2.00 07/02/20 20:00 66 22 120/84 98 Nasal Cannula 2.00 07/02/20 19:00 65 30 123/73 99 Nasal Cannula 2.00 07/02/20 19:00 65 07/02/20 17:59 21 1.00 07/02/20 17:00 68 19 131/81 98 Nasal Cannula 2.00 07/02/20 16:00 63 18 131/68 96 Nasal Cannula 2.00 07/02/20 15:48 36.5 07/02/20 15:00 69 18 114/75 97 Nasal Cannula 2.00 07/02/20 14:00 64 16 63/51 98 Nasal Cannula 2.00 07/02/20 13:00 54 16 142/79 96 Nasal Cannula 2.00 07/02/20 12:55 63 07/02/20 12:47 56 07/02/20 12:00 56 26 127/67 96 Nasal Cannula 2.00 07/02/20 11:00 60 26 123/59 96 Nasal Cannula 2.00 07/02/20 10:38 63 07/02/20 10:30 69 19 113/99 100 Nasal Cannula 2.00 07/02/20 10:30 96 Nasal Cannula 2.00 07/02/20 09:30 36.0 55 17 94/55 95 I & O 07/03/20 07:00 Intake Total 1110 ml Output Total 1700 ml Balance -590 ml Height & Weight Height: '" Weight: lbs. oz. kg; 40.17 BMI Method: General Appearance: Obese, Other (altered mentation postictal) HEENT: TMs Normal, Normal ENT Inspection, Pharynx Normal Respiratory: Chest Non Tender, Lungs Clear, Normal Breath Sounds, No Accessory Muscle Use, No Respiratory Distress Cardiovascular: Regular Rate, Rhythm, No Edema, No Gallop, No JVD, No Murmur, Normal Peripheral Pulses Capillary Refill: Less Than 3 Seconds Gastrointestinal: normal bowel sounds, soft, distended; No guarding Neurologic/Psychiatric: Other (altered mental status. Patient moans spontaneously.) Skin: Normal Color, Warm/Dry Results Lab Laboratory Tests 07/02/20 05:50 07/02/20 10:55 07/03/20 02:58 Assessment/Plan Assessment/Plan Acute alcohol withdrawal s/p seizure -Seizure precautions -CT head is negative. -CIWA -D/C Precedex and repeat abg Acute renal failure -IVF increase to 150 and give a liter bolus -Give a liter bolus of NS Acute dehydration -IVF Hyponatremia -Monitor Anemia -Monitor morbid obesity ANA ROSA SNOW DO Jul 03, 2020 06:45
[2020-07-03 07:11] LABS: ABG BASE EXCESS -0.3 MMOL/L (-2.5-2.5); ABG OXYGEN SATURATION 70 % (94-100); ABG PCO2 39 MMHG (35-45); ABG PO2 41 MMHG (79-93); ABG TCO2 25.2 MMOL/L (21.0-31.0)
--- NOTE | 2020-07-03 07:11 | Diagnostic Imaging Report ---
INDICATION: Seizure, alcohol withdrawal, dyspnea. TECHNIQUE: Single view chest 3:10 AM. CORRELATION STUDY: 07/02/2020 FINDINGS: Heart size and mediastinum are enlarged but stable. Vasculature appears generally stable. Minimal atelectasis or less likely infiltrate at the right lung base. Elevated right diaphragm. IMPRESSION: 1. Minimal atelectasis or less likely infiltrate at the right lung base. Follow-up imaging if clinically warranted. Stable cardiac enlargement. Dictated by: Dictated on workstation # [id number]
[2020-07-03 07:15] LABS: ALLENS TEST YES-POS; INSPIRED O2 1 L; PATIENT TEMP 36.5; VENTILATOR NO
--- NOTE | 2020-07-03 10:03 | Consultation - Surgery ---
History of Present Illness History of Present Illness Patient Consulted On(jose/time) 07/03/20 09:57 Time Seen by Provider: 08:48 History of Present Illness Surgery asked to consult regarding abdominal distention. HPI per ED: This patient is a 65-year-old male that presents to the emergency department complaining of mental status change. EMS was called facility with patient about home city the appear to be altered. Patient does take hydrocodone for chronic pain issues. Family member reports the patient's abdomen SINCE LAST NIGHT. UPON ARRIVAL TO THE EMERGENCY DEPARTMENT PATIENT AND GLUCOSE 172. PATIENT SUBSEQUENTLY APPEARED TO HAVE SEIZURE-LIKE ACTIVITY. PATIENT HAS NO HISTORY OF SEIZURE LIKE ACTIVITY HOWEVER HAS COMPLAINED OF HEADACHE FOR THE PAST 3-4 DAYS.. PATIENT SUBSEQUENTLY WENT POSTICTAL STILL HAVING NYSTAGMUS. PATIENT'S RESPIRATORY RATE APPEARS TO BE AROUND 20-2200% SAT. DID SUCTION AIRWAY DUE TO MUCUS. PULSE ox 100% on 2 L by nasal cannula. Patient does appear to have blood pressure 169/71. Pulse rate 73. Patient given one Ativan for Narcan. We'll do medical screening exam and evaluate treat further as needed. Again patient has no history of seizure activity Family reports in the past long-arm, alcoholic and usually drinks 1.75 L of oxygen over 2 day period. Family member state the patient did not have any alcohol yesterday. Family reports that the patient has had withdrawal seizures in the past. Timing/Duration: 4-6 Hours Severity: Moderate Associated Systoms: Seizure When I spoke to pt he was alert and oriented this am; which is a big change from yesterday. He knew the year and the president. He denied abdominal pain and stated his abdomen is about the same size it has always been. Allergies and Home Medications Allergies Coded Allergies: No Known Drug Allergies (Unverified , 05/30/20) Home Medications Bacitracin/Polymyxin B Sulfate 28.3 Gm Oint...g., 28.3 GM TP BID Prescribed by: JULIENNE LYONS on 05/30/20 0957 Patient Home Medication List Home Medication List Reviewed: Yes Past Zyqszns-Vvyfld-Blcfuu Hx Patient Social History Alcohol Use: Regular Use Recreational Drug Use: Yes (marijuana) Smoking Status: Current Everyday Smoker Former Smoker, Quit: Apr 07, 2020 Type Used: Cigars 2nd Hand Smoke Exposure: Yes Recent Foreign Travel: No Contact w/Someone Who Travel: No Recent Infectious Disease Expo: No Immunizations Up To Date Tetanus Booster (TDap): Unknown Surgeries History of Surgeries: Yes Surgeries: Orthopedic Respiratory History of Respiratory Disorde: No Cardiovascular History of Cardiac Disorders: Yes Cardiac Disorders: Hypertension Neurological History of Neurological Disord: No Genitourinary History of Genitourinary Disor: Yes Gastrointestinal History of Gastrointestinal Di: No Musculoskeletal History of Musculoskeletal Dis: Yes Musculoskeletal Disorders: Chronic Back Pain Endocrine History of Endocrine Disorders: No HEENT History of HEENT Disorders: No Cancer History of Cancer: No Psychosocial History of Psychiatric Problem: No Integumentary History of Skin or Integumenta: Yes Family Medical History Significant Family History: Cancer (father had prostate CA), Hypertension Review of Systems-General Constitutional: malaise, weakness EENTM: blurred vision; No mouth pain, No mouth swelling, No epistaxis, No throat swelling Respiratory: cough, dyspnea on exertion; No hemoptysis, No short of breath Cardiovascular: No chest pain, No edema, No palpitations Gastrointestinal: No abdominal pain, No jaundice, No melena, No nausea, No vomiting Genitourinary: No dysuria, No frequency, No hematuria Musculoskeletal: joint pain, joint swelling, muscle stiffness Skin: No change in hair/nails; lesions Psychiatric/Neurological: Denies Anxiety, Denies Depressed; Seizure; Denies Tremors Other pt denies hx of abnormal bleeding or bruising Physical Exam-General Problems Physical Exam Vital Signs Vital Signs - First Documented 07/02/20 07/02/20 05:40 09:30 Temp 36.0 Pulse 71 Resp 18 B/P (MAP) 94/55 Pulse Ox 99 O2 Delivery Nasal Cannula O2 Flow Rate 4.00 Capillary Refill : Less Than 3 Seconds General Appearance: WD/WN, no apparent distress Eyes: Bilateral Eye PERRL, Bilateral Eye EOMI HEENT: pharynx normal; No scleral icterus (R), No scleral icterus (L) Neck: non-tender, supple Respiratory: chest non-tender, no respiratory distress, no accessory muscle use, decreased breath sounds (right base), other (coarse breath sounds) Cardiovascular: regular rate, rhythm, no murmur Gastrointestinal: normal bowel sounds, soft, no organomegaly, no pulsatile mass, distended (but probably normal for pt); No rebound; tenderness (with deep palpation), hernia (just above umbilicus, incarcerated ventral....feels like it is fat only) Rectal: deferred Back: no CVA tenderness, no vertebral tenderness Extremities: non-tender, no pedal edema, no calf tenderness Neurologic/Psychiatric: 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, alert, normal mood/affect, oriented x 3 Skin: warm/dry, other (pt has scabs all over body; arms, legs, trunk and face) Lymphatic: no adenopathy (neck, axilla or groin) Data Review Labs Laboratory Tests 07/02/20 10:55: Sodium Level 127L, Potassium Level 4.2, Chloride Level 89L, Carbon Dioxide Level 22, Anion Gap 16H, Blood Urea Nitrogen 71H, Creatinine 5.66H, Estimat Glomerular Filtration Rate 10, BUN/Creatinine Ratio 13, Glucose Level 111H, Lactic Acid Level 1.54, Calcium Level 8.1L, HIV (1&2) Ag and Ab Screen Referral Non-Reactive 07/02/20 18:42: Glucometer 130H 07/03/20 00:36: Glucometer 94 07/03/20 02:58: Sodium Level 129L, Potassium Level 4.2, Chloride Level 93L, Carbon Dioxide Level 19L, Anion Gap 17H, Blood Urea Nitrogen 73H, Creatinine 4.70#H, Estimat Glomerular Filtration Rate 13, BUN/Creatinine Ratio 16, Glucose Level 88, Calcium Level 7.9L, White Blood Count 3.8L, Red Blood Count 2.56L, Hemoglobin 9.1L, Hematocrit 25L, Mean Corpuscular Volume 99, Mean Corpuscular Hemoglobin 36H, Mean Corpuscular Hemoglobin Concent 36, Red Cell Distribution Width 16.2H, Platelet Count 92L, Mean Platelet Volume 10.7, Immature Granulocyte % (Auto) 1, Neutrophils (%) (Auto) 82H, Lymphocytes (%) (Auto) 7L, Monocytes (%) (Auto) 8, Eosinophils (%) (Auto) 3, Basophils (%) (Auto) 0, Neutrophils # (Auto) 3.1, Lymphocytes # (Auto) 0.3L, Monocytes # (Auto) 0.3, Eosinophils # (Auto) 0.1, Basophils # (Auto) 0.0, Immature Granulocyte # (Auto) 0.0, Phosphorus Level 4.9H , Magnesium Level 2.7H 07/03/20 07:00: Blood Gas Puncture Site RT RAD, Blood Gas Patient Temperature 36.5, Arterial Blood pH 7.40, Arterial Blood Partial Pressure CO2 39, Arterial Blood Partial Pressure O2 41L, Arterial Blood HCO3 24, Arterial Blood Total CO2 25.2, Arterial Blood Oxygen Saturation 70L, Arterial Blood Base Excess -0.3, Pernell Test YES- POS, Blood Gas Ventilator Setting NO, Blood Gas Inspired Oxygen 1 L Microbiology 07/02/20 MRSA Screen - Final, Complete MRSA not isolated 07/02/20 Urine Culture - Preliminary, Resulted Radiology Signed Date of Exam:07/02/20 US ABDOMEN COMPLETE [id number] EXAM: ABDOMEN COMPLETE ULTRASOUND. DATE: July 02, 2020. COMPARISON: None. INDICATION: 65-year-old male, ascites. Acute renal failure. PROCEDURE: Two-dimensional ultrasound examination of the abdomen is performed. FINDINGS: Liver: The liver is diffusely increased in echogenicity relative to the right kidney, consistent with diffuse fatty infiltration of the liver. There is no sonographically demonstrated liver lesion. The main portal vein is patent. Bile ducts and gallbladder: There is no pericholecystic fluid, gallbladder wall thickening or gallstones. The gallbladder wall measures 0.2 cm. There is no intrahepatic bile duct dilation. The common bile duct is not well seen. Spleen: The spleen does measure up to maximally 16.3 cm in length and is mildly enlarged. Right kidney: The right kidney is of normal size and contour with good corticomedullary differentiation. There are no shadowing calculi or cortical deforming solid or cystic masses. No hydronephrosis. The right kidney measures 11.4 cm x 6.5 cm x 5.7 cm. Left kidney: The left kidney is located in the pelvis. There is no demonstrated left renal mass or hydronephrosis. The left kidney measures 12.8 x 5.5 x 6.8 cm in size. Pancreas: The pancreas is not well seen. Aorta: The aorta is of normal caliber. Inferior vena cava: The inferior vena cava is of normal caliber. There is minimal ascites. IMPRESSION: 1. Minimal ascites. 2. Diffuse fatty infiltration of the liver. 3. Mild splenomegaly. 4. Unremarkable sonographic appearance of the renal parenchyma. 5. No hydronephrosis. Dictated by: Dictated on workstation # [id number] Assessment/Plan Assessment/Plan Assessment/Plan Abdominal Distention Altered Mental Status with Seizure like activity Hyponatremia Hypochloremia Anemia Acute Renal Failure Incarcerated Ventral Hernia Pt's abdomen is probably his normal. He has electrolyte abnormalities that need to be replaced and anemia; which should be worked up. Anemia work-up would best be done as outpt; once everything is stabilized, probably needs colonoscopy and EGD if he hasn't had either recently. Continue fluid hydration to help with renal function, but if not improving he may need to see a Foreign Banknote Teller Trader. Pt has a hernia, but it is not bothering him and therefore not a cause for concern at this time. I will continue to follow along. He may also need CT abd/pelvis if he hasn't had this done recently; to examine hernia and abdominal contents. Clinical Quality Measures DVT/VTE Risk/Contraindication: Risk Factor Score Per Nursin RFS Level Per Nursing on Admit: 4+=Very High SHERINE CHRISTIANSON DO Jul 03, 2020 10:03
[2020-07-03] MEDS ORDERED: ENOXAPARIN 30 MG/0.3 ML (LOVENOX) SYR SC SCH (11:00)
[2020-07-03] MEDS ORDERED: FUROSEMIDE 40 MG/4 ML INJ (LASIX) IVP ONE (11:45)
[2020-07-03] MEDS: NS IV 1000 ML 1,000 ML IV SCH ×2 (12:10→16:30)
[2020-07-03] MEDS: THIAMINE INJECTION 100 MG, FOLIC ACID INJECTION 1 MG, MAGNESIUM SULFATE 2 GM, VITAMIN M... IV SCH ×5 (12:10)
[2020-07-03] MEDS ORDERED: HYDR-3817 PO (13:20)
[2020-07-03] MEDS ORDERED: AMLO-250 PO (13:20)
[2020-07-03] MEDS ORDERED: PANT40TA52 PO (13:20)
[2020-07-03] MEDS ORDERED: BUME2TAB7 PO (13:20)
[2020-07-03] MEDS ORDERED: CARV25TA PO (13:20)
[2020-07-03] MEDS ORDERED: MTP25TSR PO (13:20)
[2020-07-03] MEDS ORDERED: METF-397 PO (13:20)
[2020-07-03] MEDS ORDERED: LOSA1TAB23 PO (13:20)
[2020-07-03] MEDS ORDERED: MUPI22OI2 TOP (13:20)
--- NOTE | 2020-07-03 13:21 | NUR ---
SPOKE WITH THE PT (ALSO CALLED HIS KERI), GOT A MED LIST FROM [facility] (I ATTACHED A COPY ON HIS CHART) AND WENT THRU THE EXT MED HISTORY TO COMPLETE THE MED REC WHEN I SPOKE WITH THE PT HE SEEMED CONFUSED AND COULDNT NAME ANY OF HIS MEDICATIONS. I NAMED HIS MEDICATIONS (USING THE EXT MED HISTORY) AND PT WAS ABLE TO TELL ME SOME INFORMATION BUT HE DID NOT SEEM CONFIDENT IN HIS ANSWERS. I REACHED OUT TO KERI AFTER I HAD A MEDICATION LIST AND SHE VERIFIED HIS MEDICATIONS. ACCORDING TO THE [facility] MED LIST IT HAS CYMBALTA LISTED HOWEVER KERI SAYS HE IS NO LONGER TAKING THIS MEDICATION OTC MEDS: NONE
--- NOTE | 2020-07-03 13:47 | Occ Therapy Progress Note ---
Therapy Progress Note OT order received, chart reviewed. Will continue to monitor this pt. Pt. is currently sedated and confused according to notes. Will evaluate when able to participate in skilled therapy. Thank you for this referral. [id number] ITA HOFFMAN OT Jul 03, 2020 13:47
--- NOTE | 2020-07-03 14:02 | NUR ---
Received dietary consult for MST score. Note pt has AMS, per chart review. Will monitor PO intake, and attempt to conduct nutrition assessment on 07/05. Evin Braga MS RD LD [phone]
[2020-07-03] MEDS: CALCIUM ACETATE 667 MG CAP (PHOSLO) PO SCH ×2 (14:27→17:55)
--- NOTE | 2020-07-03 15:07 | NUR ---
CM/SS visited with patient for social service consult. The patient way lying in bed at time of visit. He was requesting to sit up. The patient's primary care nurse assisted with patient and stayed for visit. The patient states he does not remember why he is here in the hospital. CM/SS and nurse attempted to orient him to why he was admitted. Home: The patient lives at home with his . He reports that he also assist with the care of his 89 year old mother. Employment: Patient is not currently working. He states he does not receive unemployment assistance. Substance Use: The patient reports that he drinks every day. He states he drinks a half of a gallon daily. The patient verbalized he has been drinking for the past 30 years. Has been to an outpatient program 20 years ago and has tried to an inpatient program in the past. He is not willing to do inpatient at this time but stated he might be interested in outpatient. The patient continued to get distracted and had a hard time staying on track with conversation. CM/SS provided patient with resources for alcohol treatment services. CM/SS and nurse are concerned with patient's comment that he drives his mother around for appointments but denies drinking while driving. VA: Patient is a Vet. He reports he does not follow up with the [facility] and has not gotten any services from them in the past. He is unsure if he wants to access the [facility] in [place] or not. CM/SS will continue to follow.
--- NOTE | 2020-07-03 17:27 | NUR ---
PT FAMILY CALLED AT THIS TIME DEMANDING THAT PT BE TRANSFERRED TO [facility] IMMEDIATELY. THIS RN CALMLY ATTEMPTS TO SPEAK WITH FAMILY TO DECIPHER FAMILY'S CONCERNS REGARDING PT'S CARE. OF PT STATES, "I AM UPSET BECAUSE I HAVEN'T BEEN ABLE TO SEE MY . I DEMAND THAT YOU LET ME IN TO SEE HIM THIS INSTANT OR YOU GET HIM TAKEN TO A DIFFERENT HOSPITAL." THIS RN THEN STATES, "MA'AM, I UNDERSTAND THAT THIS MUST BE VERY DIFFICULT FOR YOU AND YOUR FAMILY. IF I COULD LET YOU IN HERE TO SEE YOUR I WOULD, BUT UNFORTUNATELY FOR THE SAFETY OF YOURSELF, OUR PATIENTS, AND THE OTHER EMPLOYEES THAT WORK HERE, WE CANNOT ALLOW VISITORS AT THIS TIME." OF PT THEN STATES THAT PT'S DAUGHTER WOULD LIKE TO SPEAK WITH ME. PT DAUGHTER THEN GETS ON PHONE AND BELLIGERENTLY DEMANDS "YOU WILL TRANSFER MY DAD TO [facility] RIGHT NOW! HE IS MY DAD NOT YOURS! I DON'T CARE TO HEAR WHATEVER BULLSHIT EXCUSE YOU GIVE ME. YOU ARE UPSETTING ME AND MY MOM AND WE ARE TIRED OF IT." THIS RN THEN CALMLY STATES, "PLEASE DON'T RAISE YOUR VOICE TO ME. I AM HAPPY TO HEAR YOUR CONCERNS AND THEN TRY TO GET YOU IN TOUCH WITH THE APPROPRIATE PERSON. I AM JUST TRYING TO UNDERSTAND THE ENTIRE SITUATION SO THAT I CAN HELP YOU. I UNDERSTAND THAT YOU WOULD LIKE YOUR FATHER TRANSFERRED TO A [facility]. CAN I ASK YOU WHAT THE REASONING FOR WANTING TO TRANSFER IS?" PT DAUGHTER THEN STATES, "BECAUSE WE WANT TO SEE HIM. NOW GET ME CONNECTED WITH SOMEONE THAT CAN DO SOMETHING." THIS RN THEN TRANSFERS PHONE CALL TO [facility].
--- NOTE | 2020-07-03 18:08 | NUR ---
PT CALLED AGAIN AT THIS TIME. ASKS TO SPEAK TO PT'S NURSE. THIS RN STATES, "THIS IS RADHA. I AM THE NURSE TAKING CARE OF YOUR TODAY. WERE YOU ABLE TO SPEAK WITH PROM BURN OFF OPERATOR ABOUT YOUR REQUESTS?" SHE STATES, "NO, IT WENT TO VOICEMAIL. I WOULD LIKE TO KNOW WHY I WASN'T INFORMED THAT MY WAS MOVED OUT OF ICU." THIS RN THEN EXPLAINS, "I TRULY APOLOGIZE THAT YOU WERE NOT INFORMED OF HIS CHANGE IN ROOM. I WILL TAKE RESPONSIBILITY FOR THAT. I AM HAPPY TO ANSWER ANY QUESTIONS THAT YOU MIGHT HAVE RIGHT NOW." THEN STATES, "I FEEL LIKE I DON'T KNOW WHAT IS GOING ON WITH MY AND THAT SCARES ME." THIS RN THEN STATES, "FIRST OF ALL, PLEASE ACCEPT MY SINCEREST APOLOGIES FOR ANY LACK OF COMMUNICATION. I CAN ASSURE YOU THAT IS NEVER OUR INTENTION TO LEAVE FAMILIES IN THE DARK ABOUT THEIR LOVED ONES. ALTHOUGH I HAVEN'T HAD TO EXPERIENCE YOUR SIDE OF THIS SITUATION, I DO TRY TO PUT MYSELF IN YOUR SHOES. YOUR DAUGHTER TOLD ME THAT "HE ISN'T YOUR DAD HE IS MINE," BUT BELIEVE ME, I AM TAKING CARE OF KENDRA IF HE WAS MY OWN FATHER." THEN STATES, "THANK YOU, THAT MAKES ME FEEL SO MUCH BETTER KNOWING THAT, RADHA." THIS RN THEN UPDATES ON PT'S PLAN OF CARE, MEDICATIONS, DIAGNOSIS, AND HIS OVERALL CONDITION. THANKS THIS RN AND STATES SHE WILL CALL TOMORROW FOR ANOTHER UPDATE. THIS RN EXPLAINS THAT IT IS BEST TO CALL BEFORE SHIFT CHANGE AROUND 5AM OR 5PM.
--- NOTE | 2020-07-03 18:19 | Progress Note ---
Subjective Subjective/Events-last exam Patient awake and alert this AM. States that he has been drinking since he was a kid. Noticed that his abdomen started getting distended about 1 month ago. Denies ever being told he had liver or kidney disease but he has not seen a doctor in many years. States that he is having pain in his abdomen and has not b een able to have a BM for several days. Review of Systems Pulmonary: Dyspnea; No Cough Cardiovascular: No: Chest Pain, Palpitations Gastrointestinal: Abdominal Pain, Constipation; No: Nausea, Vomiting Genitourinary: No Dysuria, No Frequency, No Hematuria Musculoskeletal: back pain Neurological: Weakness Focused Exam Lactate Level 07/02/20 06:27: Lactic Acid Level 7.48*H 07/02/20 08:35: Lactic Acid Level 2.36*H 07/02/20 10:55: Lactic Acid Level 1.54 Objective Exam Last Set of Vital Signs Vital Signs Date Time Temp Pulse Resp B/P (MAP) Pulse Ox O2 Delivery O2 Flow Rate FiO2 07/03/20 16:00 27 117/66 92 Nasal Cannula 2.00 07/03/20 12:41 74 07/03/20 09:00 92 07/03/20 07:50 37.4 Capillary Refill : Less Than 3 Seconds I&O Intake and Output 07/03/20 00:00 Intake Total 3220 ml Output Total 1450 ml Balance 1770 ml Intake Oral 0 ml IV Total 3220 ml Output Urine Total 1450 ml Daily Weight Change Unsure/Unresponsive General: Alert, Oriented X3, Mild Distress (conversational dyspnea) Lungs: Clear to Auscultation, Normal Air Movement Heart: Regular Rate, No Murmurs Abdomen: Other (Distended, normal bowel sounds, reducible umbilical hernia present, no fluid shift or wave) Extremities: Other (2+ pitting edema L>R) Neuro: Normal Speech, Sensation Intact, Cranial Nerves 3-12 NL Results/Procedures Lab Laboratory Tests 07/02/20 18:42: Glucometer 130H 07/03/20 00:36: Glucometer 94 07/03/20 02:58: White Blood Count 3.8L, Red Blood Count 2.56L, Hemoglobin 9.1L, Hematocrit 25L, Mean Corpuscular Volume 99, Mean Corpuscular Hemoglobin 36H, Mean Corpuscular H emoglobin Concent 36, Red Cell Distribution Width 16.2H, Platelet Count 92L, Mean Platelet Volume 10.7, Immature Granulocyte % (Auto) 1, Neutrophils (%) (Auto) 82H, Lymphocytes (%) (Auto) 7L, Monocytes (%) (Auto) 8, Eosinophils (%) (Auto) 3, Basophils (%) (Auto) 0, Neutrophils # (Auto) 3.1, Lymphocytes # (Auto) 0.3L, Monocytes # (Auto) 0.3, Eosinophils # (Auto) 0.1, Basophils # (Auto) 0.0, Immature Granulocyte # (Auto) 0.0, Sodium Level 129L, Potassium Level 4.2, Chloride Level 93L, Carbon Dioxide Level 19L, Anion Gap 17H, Blood Urea Nitrogen 73H, Creatinine 4.70#H, Estimat Glomerular Filtration Rate 13, BUN/Creatinine Ratio 16, Glucose Level 88, Calcium Level 7.9L, Phosphorus Level 4.9H, Magnesium Level 2.7H 07/03/20 07:00: Blood Gas Puncture Site RT RAD, Blood Gas Patient Temperature 36.5, Arterial Blood pH 7.40, Arterial Blood Partial Pressure CO2 39, Arterial Blood Partial Pressure O2 41L, Arterial Blood HCO3 24, Arterial Blood Total CO2 25.2, Arterial Blood Oxygen Saturation 70L, Arterial Blood Base Excess -0.3, Pernell Test YES- POS, Blood Gas Ventilator Setting NO, Blood Gas Inspired Oxygen 1 L Microbiology 07/02/20 MRSA Screen - Final, Complete MRSA not isolated 07/02/20 Urine Culture - Final, Complete NO GROWTH Radiology Signed Date of Exam:07/02/20 US ABDOMEN COMPLETE [id number] EXAM: ABDOMEN COMPLETE ULTRASOUND. DATE: July 02, 2020. COMPARISON: None. INDICATION: 65-year-old male, ascites. Acute renal failure. PROCEDURE: Two-dimensional ultrasound examination of the abdomen is performed. FINDINGS: Liver: The liver is diffusely increased in echogenicity relative to the right kidney, consistent with diffuse fatty infiltration of the liver. There is no sonographically demonstrated liver lesion. The main portal vein is patent. Bile ducts and gallbladder: There is no pericholecystic fluid, gallbladder wall thickening or gallstones. The gallbladder wall measures 0.2 cm. There is no intrahepatic bile duct dilation. The common bile duct is not well seen. Spleen: The spleen does measure up to maximally 16.3 cm in length and is mildly enlarged. Right kidney: The right kidney is of normal size and contour with good corticomedullary differentiation. There are no shadowing calculi or cortical deforming solid or cystic masses. No hydronephrosis. The right kidney measures 11.4 cm x 6.5 cm x 5.7 cm. Left kidney: The left kidney is located in the pelvis. There is no demonstrated left renal mass or hydronephrosis. The left kidney measures 12.8 x 5.5 x 6.8 cm in size. Pancreas: The pancreas is not well seen. Aorta: The aorta is of normal caliber. Inferior vena cava: The inferior vena cava is of normal caliber. There is minimal ascites. IMPRESSION: 1. Minimal ascites. 2. Diffuse fatty infiltration of the liver. 3. Mild splenomegaly. 4. Unremarkable sonographic appearance of the renal parenchyma. 5. No hydronephrosis. Dictated by: Dictated on workstation # [id number] Assessment/Plan Assessment/Plan (1) Alcohol withdrawal seizure Status: Acute Assessment & Plan: - Requiring ICU care, currently sedated, Banana bag ordered, CIWS protocol, Sz precautions 07/03: D/c Precedex, Will start PO folic acid and thiamine, continue CIWS Qualifiers: Qualified Codes: F10.239 - Alcohol dependence with withdrawal, unspecified; R56.9 - Unspecified convulsions (2) Acute renal failure Status: Acute Assessment & Plan: -severe dehydration, continue IVFs and monitor 07/03: Trending down, likely has underlying kidney disease and will need out patient f.u, will continue to monitor, Strict I/Os (3) Lactic acidosis Status: Resolved (4) Chronic hyponatremia Status: Acute (5) Elevated brain natriuretic peptide (BNP) level Assessment & Plan: - Will get Echo in AM, monitor respiratory status with ARF and patient requiring fluids 07/03: Normal EF, dilated atria (6) Macrocytic anemia Status: Chronic Assessment & Plan: 07/03: Occult stool ordered, never had screening colonoscopy (7) Hepatic steatosis Status: Chronic Assessment & Plan: 07/03: Likely 2/2 to EtOHism Clinical Quality Measures DVT/VTE Risk/Contraindication: Risk Factor Score Per Nursin RFS Level Per Nursing on Admit: 4+=Very High JM CORONADO MD Jul 03, 2020 18:19
[2020-07-04 03:59] LABS: BASOPHILS % (AUTO) 0 % (0-10); EOSINOPHILS # (AUTO) 0.1 10^3/uL (0.0-0.3); EOSINOPHILS % (AUTO) 3 % (0-10); HEMATOCRIT 26 % (40-54); HEMOGLOBIN 8.9 g/dL (13.3-17.7); LYMPHOCYTES # (AUTO) 0.4 10^3/uL (1.0-4.0); LYMPHOCYTES % (AUTO) 10 % (12-44); MEAN CORPUSCULAR HEMOGLOBIN 35 pg (25-34); MEAN CORPUSCULAR HGB CONC 34 g/dL (32-36); MEAN CORPUSCULAR VOLUME 101 fL (80-99); MEAN PLATELET VOLUME 10.5 fL (9.0-12.2); MONOCYTES # (AUTO) 0.4 10^3/uL (0.0-1.0); MONOCYTES % (AUTO) 8 % (0-12); NEUTROPHILS # (AUTO) 3.3 10^3/uL (1.8-7.8); NEUTROPHILS % (AUTO) 78 % (42-75); PLATELET COUNT 100 10^3/uL (130-400); WHITE BLOOD COUNT 4.2 10^3/uL (4.3-11.0)
[2020-07-04 04:28] LABS: POTASSIUM 3.6 MMOL/L (3.6-5.0)
[2020-07-04 04:29] LABS: CALCIUM 8.5 MG/DL (8.5-10.1); CREATININE SERUM 2.2 MG/DL (0.60-1.30); MAGNESIUM 2.2 MG/DL (1.6-2.4); PHOSPHORUS 3.3 MG/DL (2.3-4.7)
[2020-07-04] MEDS: THIAMINE 100 MG (VITAMIN B-1) TAB PO SCH (06:02)
[2020-07-04] MEDS: NS IV 1000 ML 1,000 ML IV SCH ×3 (06:02→22:40)
--- NOTE | 2020-07-04 07:28 | Progress Note - Surgery ---
CARRIE HALL MED STUDENT 07/04/20 0728: Subjective Date Seen by a Provider: Jul 04, 2020 Time Seen by a Provider: 07:30 Subjective/Events-last exam 65 y/o M states he's doing better than yesterday. Pt doesn't remember why he's here or how he got here. Pt denies pain but feels bloating gas in his stomach and around the belly button. Pt denies SAMSON. Pt states his BM hasn't been doing well and believes his last BM was 4-5d ago. Pt is able to tolerate solid foods w/o N/V. Pt states he can't sleep longer than an hr or 2 at the most. Pt admits he sounds short of breath but doesn't feel like he is. Review of Systems General: No Chills, No Fatigue; Appetite HEENT: No Head Aches, No Visual Changes, No Ear Pain Pulmonary: Dyspnea (slightly); No Cough Cardiovascular: No: Chest Pain Gastrointestinal: Other (cramps and bloating); No: Nausea, Vomiting, Abdominal Pain Musculoskeletal: No: arm pain, leg pain Focused Exam Lactate Level 07/02/20 06:27: Lactic Acid Level 7.48*H 07/02/20 08:35: Lactic Acid Level 2.36*H 07/02/20 10:55: Lactic Acid Level 1.54 Objective Exam Vital Signs Date Time Temp Pulse Resp B/P (MAP) Pulse Ox O2 Delivery O2 Flow Rate FiO2 07/04/20 04:06 36.4 66 24 146/65 95 Nasal Cannula 3.00 07/04/20 01:00 67 07/03/20 23:57 36.9 75 22 153/82 96 Nasal Cannula 3.00 07/03/20 21:00 Nasal Cannula 3.00 07/03/20 19:38 37.0 77 18 117/66 92 Nasal Cannula 2.00 07/03/20 18:45 72 07/03/20 16:00 27 117/66 92 Nasal Cannula 2.00 07/03/20 12:41 74 07/03/20 12:00 117/64 07/03/20 09:00 Nasal Cannula 3.00 92 07/03/20 07:50 37.4 I & O 07/04/20 07:00 Intake Total 4770 ml Output Total 5700 ml Balance -930 ml Capillary Refill : Less Than 3 Seconds General Appearance: No Apparent Distress, Obese HEENT: PERRL/EOMI Respiratory: Chest Non Tender, Lungs Clear, Normal Breath Sounds, No Accessory Muscle Use, No Respiratory Distress Cardiovascular: Regular Rate, Rhythm, No Murmur Gastrointestinal: normal bowel sounds, soft, distended (pt states he's always this distended); No rebound, No tenderness Extremity: Normal Capillary Refill, Non Tender, No Calf Tenderness Neurologic/Psychiatric: Alert, Oriented x3 Skin: Normal Color, Warm/Dry Results Lab Laboratory Tests 07/03/20 20:10: Glucometer 164H 07/04/20 03:09: White Blood Count 4.2L, Red Blood Count 2.56L, Hemoglobin 8.9L, Hematocrit 26L, Mean Corpuscular Volume 101H, Mean Corpuscular Hemoglobin 35H, Mean Corpuscular Hemoglobin Concent 34, Red Cell Distribution Width 16.5H, Platelet Count 100L, Mean Platelet Volume 10.5, Immature Granulocyte % (Auto) 1, Neutrophils (%) (Auto) 78H, Lymphocytes (%) (Auto) 10L, Monocytes (%) (Auto) 8, Eosinophils (%) (Auto) 3, Basophils (%) (Auto) 0, Neutrophils # (Auto) 3.3, Lymphocytes # (Auto) 0.4L, Monocytes # (Auto) 0.4, Eosinophils # (Auto) 0.1, Basophils # (Auto) 0.0, Immature Granulocyte # (Auto) 0.0, Sodium Level 130L, Potassium Level 3.6, Chloride Level 93L, Carbon Dioxide Level 23, Anion Gap 14, Blood Urea Nitrogen 56H, Creatinine 2.20H, Estimat Glomerular Filtration Rate 30, BUN/Creatinine Ratio 25, Glucose Level 107H, Calcium Level 8.5, Phosphorus Level 3.3, Magnesium Level 2.2 Microbiology 07/02/20 MRSA Screen - Final, Complete MRSA not isolated 07/02/20 Urine Culture - Final, Complete NO GROWTH Assessment/Plan Assessment/Plan Assessment/Plan abdominal distension - pt states that is his normal belly altered mental status - pt is improving, alerted and oriented x3. pt denies having seizures since being admitted. electrolytes - hyponatremia/hypochloremia - relplace w/ IV fluids Anemia - Abdominal Distention Altered Mental Status with Seizure like activity Hyponatremia Hypochloremia Anemia Acute Renal Failure Incarcerated Ventral Hernia Pt's abdomen is probably his normal. He has electrolyte abnormalities that need to be replaced and anemia; which should be worked up. Anemia work-up would best be done as outpt; once everything is stabilized, probably needs colonoscopy and EGD if he hasn't had either recently. Continue fluid hydration to help with renal function, but if not improving he may need to see a [employer]. Pt has a hernia, but it is not bothering him and therefore not a cause for concern at this time. I will continue to follow along. He may also need CT abd/pelvis if he hasn't had this done recently; to examine hernia and abdominal contents. no seizure. waiting on stool samples. Clinical Quality Measures DVT/VTE Risk/Contraindication: Risk Factor Score Per Nursin RFS Level Per Nursing on Admit: 4+=Very High LEO CHRISTIANSON DO 07/04/20 1215: Subjective Time Seen by a Provider: 11:59 Subjective/Events-last exam Pt seen and examined, denies abdominal pain and is eating normal diet without problems. Review of Systems General: No Chills, No Fatigue Pulmonary: Dyspnea (slightly); No Cough Cardiovascular: No: Chest Pain Gastrointestinal: Other (cramps and bloating); No: Nausea, Vomiting, Abdominal Pain Objective Exam General Appearance: No Apparent Distress, Obese HEENT: PERRL/EOMI, Moist Mucous Membranes Respiratory: Lungs Clear, Normal Breath Sounds, No Accessory Muscle Use, No Respiratory Distress Cardiovascular: Regular Rate, Rhythm, No Murmur Gastrointestinal: soft, distended (pt states he's always this distended); No rebound, No tenderness; hernia (incarcerated ventral) Assessment/Plan Assessment/Plan Assessment/Plan Hyponatremia Acute renal failure - slowly improving Incarcerated Ventral hernia Pt can follow up as an outpt if he wants to discuss hernia repair. Still needs electrolyte replacement and monitor renal function; medicine will take care of this. Pt has no surgical indications at this time and I will sign off; can reconsult if needed. Supervisory-Addendum Brief Verification & Attestation Participated in pt care: history, MDM, physical Personally performed: exam, history, MDM Care discussed with: Medical Student Procedures: n/a Verification and Attestation of Medical Student E/M Service A medical student performed and documented this service. I then reviewed and verified all information documented by the medical student and made modifications to such information, when appropriate. I personally performed a physical exam, medical decision making and then discussed any differences between the notes and made revisions as necessary to create one note. Leo Christianson , 07/04/20 , 12:15 CARRIE HALL MED STUDENT Jul 04, 2020 07:28 LEO CHRISTIANSON DO Jul 04, 2020 12:15
[2020-07-04] MEDS: FOLIC ACID 1 MG TAB PO SCH (08:38)
[2020-07-04] MEDS: CALCIUM ACETATE 667 MG CAP (PHOSLO) PO SCH ×3 (08:38→18:15)
[2020-07-04] MEDS ORDERED: PANTOPRAZOLE 40 MG (PROTONIX) VIAL IV SCH (09:00)
--- NOTE | 2020-07-04 10:15 | Pulmonary Progress Note ---
Subjective Time Seen by a Provider: 10:14 Subjective/Events-last exam no complications noted. Sepsis Event Evaluation Height, Weight, BMI Height: '" Weight: lbs. oz. kg; 40.17 BMI Method: Focused Exam Lactate Level 07/02/20 06:27: Lactic Acid Level 7.48*H 07/02/20 08:35: Lactic Acid Level 2.36*H 07/02/20 10:55: Lactic Acid Level 1.54 Exam Exam Vital Signs Date Time Temp Pulse Resp B/P (MAP) Pulse Ox O2 Delivery O2 Flow Rate FiO2 07/04/20 08:00 Nasal Cannula 3.00 07/04/20 07:55 36.8 77 24 145/67 94 Nasal Cannula 3.00 07/04/20 04:06 36.4 66 24 146/65 95 Nasal Cannula 3.00 07/04/20 01:00 67 07/03/20 23:57 36.9 75 22 153/82 96 Nasal Cannula 3.00 07/03/20 21:00 Nasal Cannula 3.00 07/03/20 19:38 37.0 77 18 117/66 92 Nasal Cannula 2.00 07/03/20 18:45 72 07/03/20 16:00 27 117/66 92 Nasal Cannula 2.00 07/03/20 12:41 74 07/03/20 12:00 117/64 I & O 07/04/20 07:00 Intake Total 4770 ml Output Total 5700 ml Balance -930 ml Height & Weight Height: '" Weight: lbs. oz. kg; 40.17 BMI Method: General Appearance: Obese HEENT: PERRL/EOMI Respiratory: Chest Non Tender, Lungs Clear, Normal Breath Sounds, No Accessory Muscle Use, No Respiratory Distress Cardiovascular: Regular Rate, Rhythm, No Murmur, Normal Peripheral Pulses Capillary Refill: Less Than 3 Seconds Gastrointestinal: normal bowel sounds, soft, distended (pt states he's always this distended); No rebound, No tenderness Extremity: Normal Capillary Refill, Non Tender, No Calf Tenderness Neurologic/Psychiatric: Alert, Oriented x3 Skin: Normal Color, Warm/Dry Results Lab Laboratory Tests 07/02/20 10:55 07/03/20 02:58 07/04/20 03:09 Assessment/Plan Assessment/Plan Acute alcohol withdrawal s/p seizure -Seizure precautions -CT head is negative. -CIWA Acute renal failure -IVF -Monitor Acute dehydration -IVF Hyponatremia -Monitor Anemia -Monitor morbid obesity ANA ROSA SNOW DO Jul 04, 2020 10:15
--- NOTE | 2020-07-04 10:29 | Occupational Therapy Eval ---
OT Evaluation-General/PLF Medical Diagnosis Admission Date Jul 02, 2020 at 10:21 Medical Diagnosis: ETOH withdraw, seizure Onset Date: Jul 02, 2020 Therapy Diagnosis Therapy Diagnosis: decreased ADL status Precautions Precautions/Isolations: Fall Prevention, Standard Precautions Referral Physician: Sujata Referral Reason: Evaluation/Treatment Medical History Additional Medical History Pt to ED due to seizure from alcohol withdrawal. Social History Home: Single Level Current Living Status: Spouse Entry Into Home: Stairs Without Railing Steps Into Home: 1 ADL-Prior Level of Function SCALE: Activities may be completed with or without assistive devices. 7-Qudyxccqvr-pyrkfdr completes the activity by him/herself with no assistance from a helper. 5-Set-up or Clean-up Assistance-helper sets up or cleans up; patient completes activity. [place] assists only prior to or following the activity. 4-Supervision or Touching Assistance-helper provides verbal cues and/or touching/steadying and/or contact guard assistance as patient completes activity. Assistance may be provided throughout the activity or intermittently. 3-Partial/Moderate Assistance-helper does LESS THAN HALF the effort. [place] lifts, holds or supports trunk or limbs, but provides less than half the effort. 2-Substantial/Maximal Assistance-helper does MORE THAN HALF the effort. [place] lifts or holds trunk or limbs and provides more than half the effort. 9-Muuxzzrwe-zaqzig does ALL the effort. Patient does none of the effort to complete the activity. Or, the assistance of 2 or more helpers is required for the patient to complete the activity. If activity was not attempted, code reason: 7-Patient Refused. 9-Not Applicable-not attempted and the patient did not perform the activity before the current illness, exacerbation or injury. 10-Not Attempted due to Environmental Limitations-(lack of equipment, weather restraints, etc.). 88-Not Attempted due to Medical Conditions or Safety Concerns. ADL PLOF Comments Pt indicates he lives with his in a single story house. Pt was independent with bathing at PLOF, seated on a shower chair and using a long handled brush. Pt able to complete upper body dressing and lower body dressing independently, but required assistance with footwear. His assists with cooking and cleaning, but pt indicates he helps with ~1/4 of the work. Self Care: Needed Some Help Functional Cognition: Independent DME/Equipment: Bath Chair, Shower DME/Equipment Comments cane OT Current Status Subjective Pt laying in bed, agreeable to OT tx. Pt does not verbalize pain during session. Mental Status/Objective Attachments: IV, Oxygen (3L), Telemetry Current Glasses/Contacts: No Hearing Aids: No Dentures/Partials: Yes Hand Dominance: Left Upper Extremity ROM RUE shoulder flexion to approx 90 degrees, pt indicates decreased ROM RUE since fall ~3 weeks ago. LUE WFL Upper Extremity Coordination WFL Upper Extremity Sensation Pt denies tingling/numbness Upper Extremity Strength decreased RUE due to decreased ROM, WFL LUE ADL-Treatment Eating (QC): 6 (Pt able to eat peaches independently.) On/Off Footwear (QC): 1 (Based on clinical reasoning, pt would require total assistance with task at this time.) Other Treatments Pt laying in bed, OT educated pt on benefits/purpose of OT, he verbalized understanding. Pt provided information about PLOF and home set up, as well as participated in UE screen. Pt's breakfast tray sitting in front of pt untouched, OT encouraged pt to eat some breakfast, pt agreeable to eating peaches, pt able to use spoon to take a few bites of peaches without difficulty. Pt's LLE swollen, pt indicates his has to assist him with footwear at baseline. Pt unclear as to if his leg is normally swollen or not. Pt declines further ADLS/OO B activities at this time. OT educated pt on OT POC while he is in the hospital with focus on increasing independence and safety with ADLs to maximize LOF to return home with , he verbalized agreement. Post OT tx, pt laying in bed, call light in reach and all needs met. Education OT Patient Education: Correct positioning, Modified ADL techniques, Progress toward Goal/Update tx plan, Purpose of tx/functional activities Teaching Recipient: Patient Teaching Methods: Discussion Response to Teaching: Verbalize Understanding OT Detention Goals Detention Goals Time Frame: Jul 13, 2020 Eating (QC): 6 Oral Hygiene (QC): 5 Toileting Hygiene (QC): 4 Shower/Bathe Self (QC): 4 Upper Body Dressing (QC): 5 Lower Body Dressing (QC): 4 On/Off Footwear (QC): 3 Additional Goals: 1-Demonstrate ADL Tasks, 2-Verbalize Understanding, 3-Im proveStrength/Taylor 1=Demonstrate adherence to instructed precautions during ADL tasks. 2=Patient will verbalize/demonstrate understanding of assistive devices/modifications for ADL. 3=Patient will improve strength/tolerance for activity to enable patient to perform ADL's. OT Education/Plan Problem List/Assessment Assessment: Decreased Activ Tolerance, Decreased UE Strength, Impaired I ADL's, Impaired Self-Care Skills Discharge Recommendations Plan/Recommendations: Continue POC Treatment Plan/Plan of Care Patient would benefit from OT for education, treatment and training to promote independence in ADL's, mobility, safety and/or upper extremity function for ADL's. Plan of Care: ADL Retraining, Functional Mobility, UE Funct Exercise/Act Treatment Duration: Jul 13, 2020 Frequency: 5 times per week Estimated Hrs Per Day: .25 hour per day Rehab Potential: Fair Time/GCodes Start Time: 09:45 Stop Time: 10:00 Total Time Billed (hr/min): 15 Billed Treatment Time 1, JONATHAN BUNCH OT Jul 04, 2020 10:29
--- NOTE | 2020-07-04 11:34 | Physical Therapy Evaluation ---
PT Evaluation-General Medical Diagnosis Admission Date Jul 02, 2020 at 10:21 Medical Diagnosis: ETOH withdraw, seizure Onset Date: Jul 02, 2020 Therapy Diagnosis Therapy Diagnosis: Limited mobility Precautions Precautions/Isolations: Fall Prevention, Standard Precautions Weight Bear Status Full Weight Bearing Full Weight Bearing Referral Physician: Sujata Reason for Referral: Evaluation/Treatment Medical History Pertinent Medical History: HTN Additional Medical History EtOH Dependence, chronic back pain Reviewed History: Yes Social History Home: Single Level Current Living Status: Spouse Entry Into Home: Stairs Without Railing PT Steps Into Home: 1 Pt reports he has fallen on front step at least twice Prior Prior Level of Function SCALE: Activities may be completed with or without assistive devices. 6-Mzbqhgciak-ufrlzex completes the activity by him/herself with no assistance from a helper. 5-Set-up or Clean-up Assistance-helper sets up or cleans up; patient completes activity. [place] assists only prior to or following the activity. 4-Supervision or Touching Assistance-helper provides verbal cues and/or touching/steadying and/or contact guard assistance as patient completes activity. Assistance may be provided throughout the activity or intermittently. 3-Partial/Moderate Assistance-helper does LESS THAN HALF the effort. [place] lifts, holds or supports trunk or limbs, but provides less than half the effort. 2-Substantial/Maximal Assistance-helper does MORE THAN HALF the effort. [place] lifts or holds trunk or limbs and provides more than half the effort. 6-Adzzbyyui-mxwpob does ALL the effort. Patient does none of the effort to complete the activity. Or, the assistance of 2 or more helpers is required for the patient to complete the activity. If activity was not attempted, code reason: 7-Patient Refused. 9-Not Applicable-not attempted and the patient did not perform the activity before the current illness, exacerbation or injury. 10-Not Attempted due to Environmental Limitations-(lack of equipment, weather restraints, etc.). 88-Not Attempted due to Medical Conditions or Safety Concerns. Bed Mobility: 6 Transfers (B,C,W/C): 6 Gait: 6 Stairs: 6 Wheelchair Mobility: 6 Indoor Mobility (Ambulation): Independent Stairs: Independent Prior Devices Use: Other-see list below (Cane and L foot boot) PT Evaluation-Current Subjective Pt presents sitting in recliner. Pt agrees to PT. Pt voices no complaints of pain. Pt/Family Goals Return home Objective Patient Orientation: Person, Place, Time, Eyes Open, Mumbles Attachments: Fernandez Catheter, IV ROM/Strength ROM Lower Extremities WFL Strength Lower Extremities R hip flex 5/5 L hip flex 4+/4 R knee ext 5/5 L knee ext 5/5 Sensory Vision: Functional Hearing: Functional Hand Dominance: Left Sensation Right Lower Extremit: Intact Sensation Left Lower Extremity: Intact Sensation Lower Extremities BLE sensation intact to light touch L2-S2; pt describes feeling as "tingling" but is unable to describe if it is more like a 'pins and needles' feeling or if he is just ticklish. Transfers Sit to Stand (QC): 4 Chair/Xgs-iw-Ohzho Xfer(QC): 4 CGA. Gait Does the Patient Walk?: Yes Mode of Locomotion: Walk Anticipated Mode of Locomotion: Walk Distance: 3'X2 fwd/bwd Gait Assistive Device: FWW Comments/Gait Description Pt is able to ambulate using FWW with CGA. Pt is limited in distance by monitoring lines and IV. Pt takes small and slow steps, but is able to progress fwd and bwd without LOB. Balance Sitting Static: Normal Sitting Dynamic: Normal Standing Static: Good Standing Dynamic: Good Assessment/Needs Pt is able to complete sit to stand and ambulation with CGA and equipment is set up and maneuvered for pt so he is able to focus on task. Pt is understanding of safety concerns. Pt states he has fallen a few times on step into home because it is too tall; pt is unaware why he is currently in hospital. At conclusion of PT treatment pt [facility] where he has access to t ray, call button, and all needs have been met. Rehab Potential: Fair PT Retirement Goals Addiction Social Worker Goals PT Retirement Goals Time Frame: Jul 11, 2020 Roll Left & Right (QC): 6 Sit to Lying (QC): 6 Lying-Sitting on Side/Bed(QC): 6 Sit to Stand (QC): 6 Chair/Lmy-sf-Anynq Xfer(QC): 6 Toilet Transfer (QC): 6 Walk 10 feet (QC): 6 Walk 50ft with 2 Turns (QC): 6 1 Step (curb) (QC): 6 PT Plan Problem List Problem List: Activity Tolerance, Functional Strength, Safety, Balance, Gait, Transfer, Bed Mobility, ROM Treatment/Plan Treatment Plan: Continue Plan of Care Treatment Plan: Bed Mobility, Education, Functional Activity Taylor, Functional Strength, Gait, Safety, Therapeutic Exercise, Transfers Treatment Duration: Jul 11, 2020 Frequency: 6 times per week Estimated Hrs Per Day: .25 hour per day Patient and/or Family Agrees t: Yes Safety Risks/Education Patient Education: Gait Training, Transfer Techniques, Correct Positioning, Safety Issues Teaching Recipient: Patient Teaching Methods: Demonstration, Discussion Response to Teaching: Reinforcement Needed Discharge Recommendations Plan Pt will work on bed mobility, balance and gait training, transfers, and therapeutic exercises. Therapy Discharge Recommendati: Post Acute PT Time/GCodes Time In: 1102 Time Out: 1123 Total Billed Treatment Time: 21 Total Billed Treatment 1 visit FLACO SNELL PT Jul 04, 2020 11:34
[2020-07-04] MEDS: ENOXAPARIN 40 MG/0.4 ML (LOVENOX) SYR SC SCH (12:47)
--- NOTE | 2020-07-04 13:06 | NUR ---
CM/SS follow up. CM/SS received update from patient's primary care nurse Irais. The patient will be transferring to the fourth floor today. Dr. Lei is wanting /family at time of discharge to take patient in for an outpatient drug/alcohol assessment at [facility]. Patient was sitting up in chair at time of visit. He was more alert and oriented today compared to yesterday's visit. He states he is doing well and is ready to get out of here. CM/SS got verbal permission to contact the patient's Ronda. CM/SS contacted the patient's Ronda. She reports that her and her daughter have been researching different inpatient facilities for alcohol treatment. CM/SS did discuss Dr. Ernst's wishes of taking patient directly to [facility] at time of discharge. They are considering it but would prefer inpatient treatment. Ronda is going to talk with her about inpatient treatment and she will contact this sw in the morning to discuss plans. CM/SS will continue to follow.
--- NOTE | 2020-07-04 13:49 | Progress Note ---
Subjective Subjective/Events-last exam Patient doing better this AM. Tolerating PO diet. Has not been up out of bed yet. Still has catheter in place Review of Systems Pulmonary: Dyspnea; No Cough Cardiovascular: Edema; No: Chest Pain, Palpitations Gastrointestinal: Constipation; No: Nausea, Vomiting, Abdominal Pain, Diarrhea Neurological: Weakness, Incoordination Focused Exam Lactate Level 07/02/20 06:27: Lactic Acid Level 7.48*H 07/02/20 08:35: Lactic Acid Level 2.36*H 07/02/20 10:55: Lactic Acid Level 1.54 Objective Exam Last Set of Vital Signs Vital Signs Date Time Temp Pulse Resp B/P (MAP) Pulse Ox O2 Delivery O2 Flow Rate FiO2 07/04/20 12:32 68 07/04/20 11:53 36.9 24 148/76 99 Nasal Cannula 3.00 07/03/20 09:00 92 Capillary Refill : Less Than 3 Seconds I&O Intake and Output 07/04/20 00:00 Intake Total 4120 ml Output Total 4700 ml Balance -580 ml Intake Oral 1920 ml IV Total 2200 ml Output Urine Total 4700 ml General: Alert, Oriented X3, Cooperative, No Acute Distress HEENT: Mucous Memb Moist/[place] Lungs: Clear to Auscultation, Normal Air Movement, Other (Increased work of breathing at rest (states that is his baseline)) Heart: Regular Rate, No Murmurs Abdomen: Soft, Other (moderate distention, no fluid wave, non tender, normal bowel sounds) Extremities: Other (LLE 1+ pitting edema, Right leg trace edema) Neuro: Normal Speech, Sensation Intact, Cranial Nerves 3-12 NL Results/Procedures Lab Laboratory Tests 07/03/20 20:10: Glucometer 164H 07/04/20 03:09: White Blood Count 4.2L, Red Blood Count 2.56L, Hemoglobin 8.9L, Hematocrit 26L, Mean Corpuscular Volume 101H, Mean Corpuscular Hemoglobin 35H, Mean Corpuscular Hemoglobin Concent 34, Red Cell Distribution Width 16.5H, Platelet Count 100L, Mean Platelet Volume 10.5, Immature Granulocyte % (Auto) 1, Neutrophils (%) (Auto) 78H, Lymphocytes (%) (Auto) 10L, Monocytes (%) (Auto) 8, Eosinophils (%) (Auto) 3, Basophils (%) (Auto) 0, Neutrophils # (Auto) 3.3, Lymphocytes # (Auto) 0.4L, Monocytes # (Auto) 0.4, Eosinophils # (Auto) 0.1, Basophils # (Auto) 0.0, Immature Granulocyte # (Auto) 0.0, Sodium Level 130L, Potassium Level 3.6, Chloride Level 93L, Carbon Dioxide Level 23, Anion Gap 14, Blood Urea Nitrogen 56H, Creatinine 2.20H, Estimat Glomerular Filtration Rate 30, BUN/Creatinine Ratio 25, Glucose Level 107H, Calcium Level 8.5, Phosphorus Level 3.3, Magnesium Level 2.2 07/04/20 11:57: Glucometer 133H Microbiology 07/02/20 MRSA Screen - Final, Complete MRSA not isolated 07/02/20 Blood Culture - Preliminary, Resulted No growth 07/02/20 Urine Culture - Final, Complete NO GROWTH Radiology Signed Date of Exam:07/02/20 US ABDOMEN COMPLETE [id number] EXAM: ABDOMEN COMPLETE ULTRASOUND. DATE: July 02, 2020. COMPARISON: None. INDICATION: 65-year-old male, ascites. Acute renal failure. PROCEDURE: Two-dimensional ultrasound examination of the abdomen is performed. FINDINGS: Liver: The liver is diffusely increased in echogenicity relative to the right kidney, consistent with diffuse fatty infiltration of the liver. There is no sonographically demonstrated liver lesion. The main portal vein is patent. Bile ducts and gallbladder: There is no pericholecystic fluid, gallbladder wall thickening or gallstones. The gallbladder wall measures 0.2 cm. There is no intrahepatic bile duct dilation. The common bile duct is not well seen. Spleen: The spleen does measure up to maximally 16.3 cm in length and is mildly enlarged. Right kidney: The right kidney is of normal size and contour with good corticomedullary differentiation. There are no shadowing calculi or cortical deforming solid or cystic masses. No hydronephrosis. The right kidney measures 11.4 cm x 6.5 cm x 5.7 cm. Left kidney: The left kidney is located in the pelvis. There is no demonstrated left renal mass or hydronephrosis. The left kidney measures 12.8 x 5.5 x 6.8 cm in size. Pancreas: The pancreas is not well seen. Aorta: The aorta is of normal caliber. Inferior vena cava: The inferior vena cava is of normal caliber. There is minimal ascites. IMPRESSION: 1. Minimal ascites. 2. Diffuse fatty infiltration of the liver. 3. Mild splenomegaly. 4. Unremarkable sonographic appearance of the renal parenchyma. 5. No hydronephrosis. Dictated by: Dictated on workstation # [id number] Assessment/Plan Assessment/Plan (1) Alcohol withdrawal seizure Status: Acute Assessment & Plan: - Requiring ICU care, currently sedated, Banana bag ordered, CIWS protocol, Sz precautions 07/03: D/c Precedex, Will start PO folic acid and thiamine, continue CIWS 07/04: Ativan need decreasing, Will get patient up with PT, D/c tarsha, Patient interested in ATS outpatient treatment, appt tomorrow at [facility] and will transition to [facility] Qualifiers: Qualified Codes: F10.239 - Alcohol dependence with withdrawal, unspecified; R56.9 - Unspecified convulsions (2) Acute renal failure Status: Acute Assessment & Plan: -severe dehydration, continue IVFs and monitor 07/03: Trending down, likely has underlying kidney disease and will need outpatient f.u, will continue to monitor, Strict I/Os 07/04: Improving 2.02 today, Will continue with IVFs, repeat CMP in AM (3) Lactic acidosis Status: Resolved (4) Chronic hyponatremia Status: Acute (5) Elevated brain natriuretic peptide (BNP) level Assessment & Plan: - Will get Echo in AM, monitor respiratory status with ARF and patient requiring fluids 07/03: Normal EF, dilated atria (6) Macrocytic anemia Status: Chronic Assessment & Plan: 07/03: Occult stool ordered, never had screening colonoscopy (7) Hepatic steatosis Status: Chronic Assessment & Plan: 07/03: Likely 2/2 to EtOHism (8) Constipation Status: Acute Assessment & Plan: 07/04: Will start Senna BID Qualifiers: Qualified Codes: K59.00 - Constipation, unspecified Clinical Quality Measures DVT/VTE Risk/Contraindication: Risk Factor Score Per Nursin RFS Level Per Nursing on Admit: 4+=Very High JM CORONADO MD Jul 04, 2020 13:49
[2020-07-04] MEDS: SENNA W/DOCUSATE (SENOKOT S) TABLET PO SCH ×2 (14:25→20:50)
[2020-07-04 14:30] VITALS: BP 187/95
[2020-07-04 16:41] VITALS: BP 145/66
[2020-07-04 19:24] VITALS: BP 144/74
[2020-07-05 00:42] VITALS: BP 157/71
[2020-07-05 04:04] VITALS: BP 138/70
[2020-07-05 05:12] LABS: BASOPHILS % (AUTO) 1 % (0-10); HEMOGLOBIN 8.9 g/dL (13.3-17.7); LYMPHOCYTES # (AUTO) 0.6 10^3/uL (1.0-4.0)
[2020-07-05 05:14] LABS: EOSINOPHILS # (AUTO) 0.2 10^3/uL (0.0-0.3); EOSINOPHILS % (AUTO) 5 % (0-10); HEMATOCRIT 26 % (40-54); LYMPHOCYTES % (AUTO) 16 % (12-44); MEAN CORPUSCULAR HEMOGLOBIN 35 pg (25-34); MEAN CORPUSCULAR HGB CONC 34 g/dL (32-36); MEAN CORPUSCULAR VOLUME 104 fL (80-99); MEAN PLATELET VOLUME 10.6 fL (9.0-12.2); MONOCYTES # (AUTO) 0.3 10^3/uL (0.0-1.0); MONOCYTES % (AUTO) 9 % (0-12); NEUTROPHILS # (AUTO) 2.6 10^3/uL (1.8-7.8); NEUTROPHILS % (AUTO) 69 % (42-75); PLATELET COUNT 119 10^3/uL (130-400); WHITE BLOOD COUNT 3.8 10^3/uL (4.3-11.0)
[2020-07-05 05:18] LABS: CHLORIDE 94 MMOL/L (98-107); POTASSIUM 4.1 MMOL/L (3.6-5.0); SODIUM 130 MMOL/L (135-145)
[2020-07-05 05:20] LABS: GLUCOSE 107 MG/DL (70-105)
[2020-07-05 05:21] LABS: CARBON DIOXIDE 25 MMOL/L (21-32)
[2020-07-05 05:23] LABS: PHOSPHORUS 2.7 MG/DL (2.3-4.7)
[2020-07-05 05:24] LABS: CREATININE SERUM 1.18 MG/DL (0.60-1.30); GFR ESTIMATED > 60
[2020-07-05 05:25] LABS: BUN/CREATININE RATIO 30
[2020-07-05 05:26] LABS: MAGNESIUM 1.7 MG/DL (1.6-2.4)
[2020-07-05] MEDS: NS IV 1000 ML 1,000 ML IV SCH (06:28)
[2020-07-05] MEDS: THIAMINE 100 MG (VITAMIN B-1) TAB PO SCH (06:28)
[2020-07-05 08:00] VITALS: BP 123/78
[2020-07-05] MEDS: SENNA W/DOCUSATE (SENOKOT S) TABLET PO SCH (08:34)
[2020-07-05] MEDS: FOLIC ACID 1 MG TAB PO SCH (08:35)
[2020-07-05] MEDS: ENOXAPARIN 40 MG/0.4 ML (LOVENOX) SYR SC SCH (08:35)
[2020-07-05] MEDS: CALCIUM ACETATE 667 MG CAP (PHOSLO) PO SCH (08:35)
[2020-07-05] MEDS ORDERED: PANTOPRAZOLE 40 MG (PROTONIX) TAB PO SCH (09:00)
--- NOTE | 2020-07-05 09:40 | Physical Therapy Daily Note ---
PT Daily Note-Current Subjective Patient is up in recliner and agrees to PT. Mental Status Patient Orientation: Normal For Age Attachments: Oxygen Transfers SCALE: Activities may be completed with or without assistive devices. 5-Ezgrpvqjpe-xathjpd completes the activity by him/herself with no assistance from a helper. 5-Set-up or Clean-up Assistance-helper sets up or cleans up; patient completes activity. [place] assists only prior to or following the activity. 4-Supervision or Touching Assistance-helper provides verbal cues and/or touching/steadying and/or contact guard assistance as patient completes activity. Assistance may be provided throughout the activity or intermittently. 3-Partial/Moderate Assistance-helper does LESS THAN HALF the effort. [place] lifts, holds or supports trunk or limbs, but provides less than half the effort. 2-Substantial/Maximal Assistance-helper does MORE THAN HALF the effort. [place] lifts or holds trunk or limbs and provides more than half the effort. 9-Vzalflndw-orlefn does ALL the effort. Patient does none of the effort to complete the activity. Or, the assistance of 2 or more helpers is required for the patient to complete the activity. If activity was not attempted, code reason: 7-Patient Refused. 9-Not Applicable-not attempted and the patient did not perform the activity before the current illness, exacerbation or injury. 10-Not Attempted due to Environmental Limitations-(lack of equipment, weather restraints, etc.). 88-Not Attempted due to Medical Conditions or Safety Concerns. Sit to Stand (QC): 5 Weight Bearing Full Weight Bearing Full Weight Bearing Gait Training Does the Patient Walk?: Yes Distance: 200' Walk 10 feet (QC): 5 Walk 50 ft with 2 Turns(QC): 5 Walk 150 ft (QC): 5 Gait Assistive Device: FWW functional gait sequence with FWW with VC's for body placement in FWW for safety Exercises Seated Therapy Exercises: Ankle pumps, Long arc quads Seated Reps: 15 Assessment Physician present reporting patient will dismiss to home on this date. Patient remains on O2. PT Residential Goals Inspector Crystal Goals PT Inspector Crystal Goals Time Frame: Jul 11, 2020 Roll Left & Right (QC): 6 Sit to Lying (QC): 6 Lying-Sitting on Side/Bed(QC): 6 Sit to Stand (QC): 6 Chair/Buq-jg-Pytpb Xfer(QC): 6 Toilet Transfer (QC): 6 Walk 10 feet (QC): 6 Walk 50ft with 2 Turns (QC): 6 1 Step (curb) (QC): 6 PT Plan Treatment/Plan Treatment Plan: Continue Plan of Care Treatment Plan: Bed Mobility, Education, Functional Activity Taylor, Functional Strength, Gait, Safety, Therapeutic Exercise, Transfers Treatment Duration: Jul 11, 2020 Frequency: 6 times per week Estimated Hrs Per Day: .25 hour per day Patient and/or Family Agrees t: Yes Time/GCodes Time In: 902 Time Out: 913 Total Billed Treatment Time: 11 Total Billed Treatment 1 visit GT 11 min RUSH GARCIA PT Jul 05, 2020 09:40
--- NOTE | 2020-07-05 09:46 | Occupational Ther Daily Note ---
OT Current Status-Daily Note Subjective Pt in chair. Pt alert/ oriented. States he was confused on why he was here/ where he was prior to DO visit. pt denies pain, though states there is "always pain in my back." Pt agrees to OT tx. Mental Status/Objective Patient Orientation: Person, Place, Situation Attachments: Oxygen ADL-Treatment Therapy Code Descriptions/Definitions Functional Frederic Measure: 0=Not Assessed/NA 4=Minimal Assistance 1=Total Assistance 5=Supervision or Setup 2=Maximal Assistance 6=Modified Frederic 3=Moderate Assistance 7=Complete IndependenceSCALE: Activities may be completed with or without assistive devices. 6-Yczfqbvpbb-kizxchf completes the activity by him/herself with no assistance from a helper. 5-Set-up or Clean-up Assistance-helper sets up or cleans up; patient completes activity. [place] assists only prior to or following the activity. 4-Supervision or Touching Assistance-helper provides verbal cues and/or touching/steadying and/or contact guard assistance as patient completes activity. Assistance may be provided throughout the activity or intermittently. 3-Partial/Moderate Assistance-helper does LESS THAN HALF the effort. [place] lifts, holds or supports trunk or limbs, but provides less than half the effort. 2-Substantial/Maximal Assistance-helper does MORE THAN HALF the effort. [place] lifts or holds trunk or limbs and provides more than half the effort. 7-Gyvygvoth-aimjhp does ALL the effort. Patient does none of the effort to complete the activity. Or, the assistance of 2 or more helpers is required for the patient to complete the activity. If activity was not attempted, code reason: 7-Patient Refused. 9-Not Applicable-not attempted and the patient did not perform the activity before the current illness, exacerbation or injury. 10-Not Attempted due to Environmental Limitations-(lack of equipment, weather restraints, etc.). 88-Not Attempted due to Medical Conditions or Safety Concerns. Eating (QC): 6 (per pt.) Shower/Bathe Self (QC): 7 Other Treatment Pt presented with tx options. Pt agrees on working towards higher fx UB/ standing endurance and balance. pt stands at walker level with CGA and cues for hand placement. At walker level, pt's balance is tested and activities are upgraded to no UE support on walker bilaterally with resisted theraband UE exercises in stance. Pt completes ~1 min activity bilterally of the following exercises, standing ~10 min: shoulder horizontal abduction, bicep curls, triceps, and back flies. Pt states has had insomnia, denies having routine at home. pt educated on routine example to assist in sleep pattern regularity. Pt sits to rest, slight SOB noted. Pt educated on continued ex in chair. Pt agrees, all needs met, call light in reach. Education OT Patient Education: Correct positioning, Exercise program, Home exercise program, Safety issues, Transfer techniques Teaching Recipient: Patient Teaching Methods: Demonstration, Discussion Response to Teaching: Verbalize Understanding, Return Demonstration OT Fci Goals Fci Goals Time Frame: Jul 13, 2020 Eating (QC): 6 Oral Hygiene (QC): 5 Toileting Hygiene (QC): 4 Shower/Bathe Self (QC): 4 Upper Body Dressing (QC): 5 Lower Body Dressing (QC): 4 On/Off Footwear (QC): 3 Additional Goals: 1-Demonstrate ADL Tasks, 2-Verbalize Understanding, 3- ImproveStrength/Taylor 1=Demonstrate adherence to instructed precautions during ADL tasks. 2=Patient will verbalize/demonstrate understanding of assistive devices/mod ifications for ADL. 3=Patient will improve strength/tolerance for activity to enable patient to perform ADL's. OT Education/Plan Problem List/Assessment Assessment: Decreased Activ Tolerance, Edema (LLE), Impaired I ADL's, Impaired Self-Care Skills Discharge Recommendations Plan/Recommendations: Continue POC Therapy Discharge Recommendati: Home & Family, Post Acute OT Treatment Plan/Plan of Care Treatment,Training & Education: Yes Patient would benefit from OT for education, treatment and training to promote independence in ADL's, mobility, safety and/or upper extremity function for ADL's. Plan of Care: ADL Retraining, Functional Mobility, UE Funct Exercise/Act Treatment Duration: Jul 13, 2020 Frequency: 5 times per week Estimated Hrs Per Day: .25 hour per day Rehab Potential: Fair Time/GCodes Start Time: 09:21 Stop Time: 09:39 Total Time Billed (hr/min): 18 Billed Treatment Time 1, EX (18) ROXANA CASTRO OTR Jul 05, 2020 09:46
--- NOTE | 2020-07-05 10:34 | Discharge Summary ---
Diagnosis/Chief Complaint Date of Admission Jul 02, 2020 at 10:21 Date of Discharge 07/05/2020 Admission Diagnosis Admission Diagnosis See problem list Discharge Diagnosis See below Problems/Diagnosis: (1) Alcohol withdrawal seizure Assessment & Plan: - Requiring ICU care, currently sedated, Banana bag ordered, CIWS protocol, Sz precautions 07/03: D/c Precedex, Will start PO folic acid and thiamine, continue CIWS 07/04: Ativan need decreasing, Will get patient up with PT, D/c tarsha, Patient interested in ATS outpatient treatment, appt tomorrow at [facility] and will transition to [facility] 07/05: Patient to discharge today and will f.u with ATS at [facility] Qualifiers: Qualified Codes: F10.239 - Alcohol dependence with withdrawal, unspecified; R56.9 - Unspecified convulsions Status: Acute (2) Acute renal failure Assessment & Plan: -severe dehydration, continue IVFs and monitor 07/03: Trending down, likely has underlying kidney disease and will need outpatient f.u, will continue to monitor, Strict I/Os 07/04: Improving 2.02 today, Will continue with IVFs, repeat CMP in AM 07/05: Resolving with IV hydration Status: Acute (3) Lactic acidosis Status: Resolved Resolution Date/Time: 07/02/20 @ 16:10 (4) Chronic hyponatremia Status: Acute (5) Elevated brain natriuretic peptide (BNP) level Assessment & Plan: - Will get Echo in AM, monitor respiratory status with ARF and patient requiring fluids 07/03: Normal EF, dilated atria (6) Macrocytic anemia Assessment & Plan: 07/03: Occult stool ordered, never had screening colonoscopy Status: Chronic (7) Hepatic steatosis Assessment & Plan: 07/03: Likely 2/2 to EtOHism Status: Chronic (8) Constipation Assessment & Plan: 07/04: Will start Senna BID Qualifiers: Qualified Codes: K59.00 - Constipation, unspecified Status: Acute Chief Complaint/HPI Chief Complaint/HPI 65 yo M with known EtOH dependence that was seen in ER after EtOH withdraw seizure. states that patient drinks a handle in 2 days and has not drank for alittle over 24 hrs. Patient currently sedated and unable to provide additional history. Discharge Summary-Simple/Stand Consultations Dr Puckett: Pulmonary Critical Care Discharge Physical Examination Allergies: Coded Allergies: No Known Drug Allergies (Unverified , 05/30/20) Vitals & I&Os Vital Sign - Last 12Hours Date Time Temp Pulse Resp B/P (MAP) Pulse Ox O2 Delivery O2 Flow Rate FiO2 07/05/20 08:00 36.0 72 24 123/78 (93) 100 Nasal Cannula 3.00 07/03/20 09:00 92 Intake and Output 07/05/20 00:00 Intake Total 2960 ml Output Total 1850 ml Balance 1110 ml General Appearance: Alert, Oriented X3, Cooperative, No Acute Distress Respiratory: Clear to Auscultation, Normal Air Movement Cardiovascular: Regular Rate, No Murmurs Abdominal: Normal Bowel Sounds, Soft, No Tenderness, No Masses, Other (mild distention) Extremities: Other (1+ pitting edema with chronic lymphedema changes on the left) Skin: No Rashes, No Breakdown Neuro: Normal Speech, Strength at 5/5 X4 Ext, Sensation Intact, Cranial Nerves 3-12 NL Psych/Mental Status: Mental Status NL, Mood NL Hospital Course Was the Problem List Reviewed?: Yes See final discharge diagnosis. Radiology Reviewed Signed Date of Exam:07/02/20 US ABDOMEN COMPLETE [id number] EXAM: ABDOMEN COMPLETE ULTRASOUND. DATE: July 02, 2020. COMPARISON: None. INDICATION: 65-year-old male, ascites. Acute renal failure. PROCEDURE: Two-dimensional ultrasound examination of the abdomen is performed. FINDINGS: Liver: The liver is diffusely increased in echogenicity relative to the right kidney, consistent with diffuse fatty infiltration of the liver. There is no sonographically demonstrated liver lesion. The main portal vein is patent. Bile ducts and gallbladder: There is no pericholecystic fluid, gallbladder wall thickening or gallstones. The gallbladder wall measures 0.2 cm. There is no intrahepatic bile duct dilation. The common bile duct is not well seen. Spleen: The spleen does measure up to maximally 16.3 cm in length and is mildly enlarged. Right kidney: The right kidney is of normal size and contour with good corticomedullary differentiation. There are no shadowing calculi or cortical deforming solid or cystic masses. No hydronephrosis. The right kidney measures 11.4 cm x 6.5 cm x 5.7 cm. Left kidney: The left kidney is located in the pelvis. There is no demonstrated left renal mass or hydronephrosis. The left kidney measures 12.8 x 5.5 x 6.8 cm in size. Pancreas: The pancreas is not well seen. Aorta: The aorta is of normal caliber. Inferior vena cava: The inferior vena cava is of normal caliber. There is minimal ascites. IMPRESSION: 1. Minimal ascites. 2. Diffuse fatty infiltration of the liver. 3. Mild splenomegaly. 4. Unremarkable sonographic appearance of the renal parenchyma. 5. No hydronephrosis. Dictated by: Dictated on workstation # [id number] Discussion & Recommendations 65 yo M with chronic alcoholism that presented after withdraw seizure. Patient required ICU care for the first 24 hrs and then stablized. Patient not requiring ativan at discharge. He is interested in outpatient treatment and states that he has never tried treatment in the past. Has appt with outpatient ATS and will f.u in [facility]. Kidney failure resolved at time of discharge. Patient was hemoccult positive and will need outpatient f.u. Discharge Condition at discharge Stable Instructions to patient/family Please see electronic discharge instructions given to patient. Discharge Medications Reviewed and agree with Discharge Medication list on patient's Discharge Instruction sheet Clinical Quality Measures DVT/VTE Risk/Contraindication: Risk Factor Score Per Nursin RFS Level Per Nursing on Admit: 4+=Very High Copy Copies To 1: SELF,JM CASTRO MD, MD Jul 05, 2020 10:34
[2020-07-05] MEDS ORDERED: THIA100T80 PO (10:38)
[2020-07-05] MEDS ORDERED: Folic Acid PO (10:38)
[2020-07-05] MEDS ORDERED: SENN-20 PO (10:38)
--- NOTE | 2020-07-05 10:39 | Discharge Summary ---
Discharge [facility] Reconcile Patient Problems Problems Reviewed?: Yes Discharge Medications New, Converted or Re-Newed RX: Transmitted to Pharmacy New Medications: [Folic Acid] () 1 MG TAB 1 MG PO DAILY, #10 TAB Sennosides/Docusate Sodium (Senna-Time S Tablet) 1 Each Tablet 1 EA PO BID for 14 Days, #28 TAB Thiamine HCl (Vitamin B-1) 100 Mg Tablet 100 MG PO DAILY@0700, #10 TAB Continued Medications: Amlodipine Besylate (Amlodipine Besylate) 5 Mg Tablet 5 MG PO DAILY, TAB Bumetanide (Bumetanide) 2 Mg Tablet 2 MG PO DAILY, TAB Carvedilol (Carvedilol) 25 Mg Tablet 25 MG PO BID, TAB Losartan/Hydrochlorothiazide (Losartan-Hctz 100-25 mg Tab) 1 Each Tablet 1 EA PO DAILY, TAB Metformin HCl (Metformin HCl) 500 Mg Tablet 500 MG PO BID WITH MEALS, TAB Mupirocin (Mupirocin) 22 Gm Oint...g. 1 APPLIC TOP BID, TUBE Pantoprazole Sodium (Pantoprazole Sodium) 40 Mg Tablet.dr 40 MG PO HS, TAB Discontinued Medications: Hydrocodone/Acetaminophen (Hydrocodone-Acetamin 7.5-325) 1 Each Tablet 1 EA PO TID PRN for PAIN-MODERATE (5-7), TAB Metoprolol Succinate (Metoprolol Succinate) 25 Mg Tab.er.24h 25 MG PO DAILY, TAB Patient Instructions Goal/Follow Up Appt: You have an appt at 130 PM at [facility] in [place] for addiction treatment intake and then you will continue outpatient treatment in [facility] Activity & Diet Discharge Diet: Cardiac Diet Activity as Tolerated: Yes Orders-Post D/C & Referrals Pneu Vac Indicated: Yes JM CORONADO MD Jul 05, 2020 10:39
--- NOTE | 2020-07-05 11:43 | NUR ---
CM/SS finalized discharge. Plan: Patient will discharge home today after an outpatient appointment with the [facility] at 1 p.m. will be transportation home and too appointment. CM/SS contacted the patient's Ronda. She was unaware that the patient was going to discharge today and that he had an appointment at [facility]; however, she is agreeable with plan for today. She will look into different options after today due to driving distance. CM/SS visited with patient. He was in good spirits today and ready for discharge. He states that he is going to try really hard to continue with sobriety. He stated "I feel like this is my last chance". The patient reports he wants to do this for his daughter and his . The patient became tearful and stated "I've been treated so good here. No on has treated me like this. I feel special. No further needs.
[2020-07-05 12:00] VITALS: BP 154/77
[2020-07-05 13:35] VITALS: BP 154/77
--- NOTE | 2020-07-05 13:35 | NUR ---
RD ASSESSMENT PMHx: ETOH dependence PT INTERACTION: Pt was awake and pleasant during consult for MST score. Note pt was confused at times during assessment and needed redirection. Pt states current appetite has "never been good." Note avg PO intake 71% x2d, per chart review. Pt states following a regular diet at home, and has no issues with chewing/swallowing food when he has his dentures. Pt states his dentures are not with him currently. Pt states recent issues with nausea, vomiting, constipation, and diarrhea, and that his last BM was 07/01. Note pt not currently on bowel regimen per chart review. Pt states recent wt gain, but is unsure of amount/timeframe. Pt also stated current weight was 295#. Note current wt of 276#, and recent wt loss of 29# x1mon, per chart review. This is significant wt loss at 10%. Upon visual assessment, pt appears to be well nourished with no visible signs of muscle/fat wasting and a BMI of 39.7 (Obese class III for age). Though wt loss is significant, given PO intake and visual assessment, pt does not meet criteria for malnutrition per ASPEN guidelines. ABNORMAL NUTRITION-RELATED LAB VALUES LOW: Na 130; Cl 94; HIGH: BUN 35; glu 107 Est. kcal needs: 1875 kcal | 15 kcal/kg Est. Pro needs: 100 g Pro | 0.8 g Pro/kg PES STATEMENT: Inadequate oral intake (NI-2.1) related to loss of appetite | nausea | vomiting | constipation | diarrhea as evidenced by pt interview | avg PO intake 71% x2d INTERVENTION: Continue with current diet order of DYS3 Advanced diet. Pt may benefit from nutrition supplementation if PO intake declines. Will continue to follow and reassess as pt needs, intake, and status change. Evin Braga, MS RD LD
== END 2020-07-05 13:37 | disposition home or self-care (01) | DRG 896 ==
LOC: EDUNIT# 05:37 → ER FS 05:42 → ICU 10:21 → CSD 07-03 09:46 → 4TH 07-04 13:55
PROVIDERS: ADMIT Family Medicine; ATTEND Family Medicine
DX: F10.232 Alcohol dependence with withdrawal with perceptual disturbance (principal); K43.7 Other and unspecified ventral hernia with gangrene; G40.89 Other seizures; N17.9 Acute kidney failure, unspecified; E87.2 Acidosis; E87.1 Hypo-osmolality and hyponatremia; Z68.41 Body mass index [BMI] 40.0-44.9, adult; F10.231 Alcohol dependence with withdrawal delirium; E87.8 Other disorders of electrolyte and fluid balance, not elsewhere classified; K76.0 Fatty (change of) liver, not elsewhere classified; K59.00 Constipation, unspecified; F17.290 Nicotine dependence, other tobacco product, uncomplicated; E86.0 Dehydration; E66.01 Morbid (severe) obesity due to excess calories; M54.9 Dorsalgia, unspecified; I10 Essential (primary) hypertension; D53.9 Nutritional anemia, unspecified
CPT/HCPCS: 36415; 51702; 70450; 71045; 76700; 80048; 80053; 80306; 80320; 81000; 82805; 82962; 83605; 83735; 83880; 84100; 84484; 85025; 85610; 86703; 87040; 87081; 87088; 93005; 93306; 99291

== ENCOUNTER → 2020-08-15 | Outpatient (CLI) | payer MEDICARE, BC, OTHER ==
[~2020-08-15] MED LIST changes: +AMLO-250 PO; +BUME2TAB7 PO; +CARV25TA PO; +Folic Acid PO; +HYDR-3817 PO; +LOSA1TAB23 PO; +METF-397 PO; +MTP25TSR PO; +MUPI22OI2 TOP; +PANT40TA52 PO; +SENN-20 PO; +THIA100T80 PO
--- NOTE | 2020-08-15 11:51 | Diagnostic Imaging Report ---
PROCEDURE: CT left lower extremity without contrast. TECHNIQUE: Multiple contiguous axial images were obtained through the left lower extremity without the use of intravenous contrast. Sagittal and coronal reformations were then performed. Auto Exposure Controls were utilized during the CT exam to meet ALARA standards for radiation dose reduction. 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 There is bony fusion across the subtalar joint. There is extensive destruction, cortical irregularity/erosion and ossific fragments throughout the tibiotalar joint, without any significant bony bridging seen. There is marked lucency about the intramedullary michael and the distal interlocking screws consistent with loosening. There is an old screw tract in the calcaneus as well. No definite acute fracture is seen. Significant periosteal reaction about the distal tibia is likely reactive to the above findings. There is diffuse osteopenia. There is severe confluent edema in the superficial soft tissues about the left lower leg and ankle. There is generalized muscular atrophy. IMPRESSION: 1. Arthrodesis of the tibiotalar and subtalar joints with loosening of the hardware distally. There is marked cortical irregularity/erosion with no bony bridging at the tibiotalar joint. Underlying chronic infection is not excluded. 2. Marked confluent superficial soft tissue edema about the left lower leg and ankle. Dictated by: Dictated on workstation # [id number]
== END ==
LOC: RAD FS 09:50
PROVIDERS: ATTEND Orthopaedic Surgery
DX: M96.0 Pseudarthrosis after fusion or arthrodesis (principal)
CPT/HCPCS: 73700

== ENCOUNTER 2021-12-24 14:17 | Observation (INO) | payer MEDICARE, BC, OTHER ==
[2021-12-24] VITALS (8 sets, daily range): BP systolic 147–191; BP diastolic 69–111
[~2021-12-24] VITALS: Ht 167.6 cm; Wt 126.9 kg
[2021-12-24] MEDS ORDERED: ASPIRIN 81 MG CHEW (CHILDREN'S ASA) PO ONE (14:45)
--- NOTE | 2021-12-24 14:46 | ED Chest Pain ---
General Chief Complaint: Cardiac/General Problems Stated Complaint: BRADYCARDIA Source: patient, EMS ([facility]) Exam Limitations: no limitations History of Present Illness Date Seen by Provider: Dec 24, 2021 Time Seen by Provider: 14:21 Initial Comments Patient to the ER by [facility] with chief complaint of some chest pain that has since resolved on route. He did not receive aspirin on route. No history of heart disease. He does have a history of COPD but quit smoking over a decade ago. He has hypertension and hyperlipidemia. No diabetes. EMS noted his heart rate to be steady in the 30s - 50s. He does not have any shortness of breath nausea or chest pain at this time. He says it only comes on when he exerts himself. It has been going on for the past 2+ weeks. 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 He follows with Dr. Maldonado. He had 3 surgeries on his left ankle in the last 4 years. He has chronic edema in his left leg since that. The patient produces a medication list which lists carvedilol and metoprolol. He states he never stopped taking the carvedilol when they put him on metoprolol. He continues to take that in addition to Bumex, amlodipine, losartan. He does have a history metformin on his list and admits he was told he was prediabetic. No history of liver cirrhosis. He has known anemia although he has never had to have blood transfusions. He quit drinking heavy about 2 years ago and is on thiamine and folate for this. He says that Dr. Maldonado did start a work-up on his anemia but he is not sure what they found. He had ultrasound of his abdomen and liver included 2019 , 2 years ago demonstrating diffuse fatty infiltration but no lesion and patent main portal vein. Minimal ascites at that time. Allergies and Home Medications Allergies Coded Allergies: No Known Drug Allergies (Unverified , 05/30/20) Patient Home Medication List Home Medication List Reviewed: Yes Amlodipine Besylate (Amlodipine Besylate) 5 Mg Tablet, 5 MG PO DAILY, (Reported) Entered as Reported by: NIEVES DIMAS on 07/03/20 1320 Bumetanide (Bumetanide) 2 Mg Tablet, 2 MG PO DAILY, (Reported) Entered as Reported by: NIEVES DIMAS on 07/03/20 1320 Carvedilol (Carvedilol) 25 Mg Tablet, 25 MG PO BID, (Reported) Entered as Reported by: NIEVES DIMAS on 07/03/20 132 Losartan/Hydrochlorothiazide (Losartan-Hctz 100-25 mg Tab) 1 Each Tablet, 1 EA PO DAILY, (Reported) Entered as Reported by: NIEVES DIMAS on 07/03/20 1320 Metformin HCl (Metformin HCl) 500 Mg Tablet, 500 MG PO BID WITH MEALS, (Reported) Entered as Reported by: NIEVES DIMAS on 07/03/20 132 Mupirocin (Mupirocin) 22 Gm Oint...g., 1 APPLIC TOP BID, (Reported) Entered as Reported by: NIEVES DIMAS on 07/03/20 132 Pantoprazole Sodium (Pantoprazole Sodium) 40 Mg Tablet.dr, 40 MG PO HS, (Reported) Entered as Reported by: NIEVES DIMAS on 07/03/20 1320 Sennosides/Docusate Sodium (Senna-Time S Tablet) 1 Each Tablet, 1 EA PO BID Prescribed by: JM CORONADO on 07/05/20 1038 Thiamine HCl (Vitamin B-1) 100 Mg Tablet, 100 MG PO DAILY@0700 Prescribed by: JM CORONADO on 07/05/20 1038 [Folic Acid] 1 MG TAB, 1 MG PO DAILY Prescribed by: JM CORONADO on 07/05/20 1038 Review of Systems Review of Systems Constitutional: No chills, No diaphoresis EENTM: No Blurred Vision, No Double Vision Respiratory: Denies Cough, Denies Shortness of Air; SOA With Exertion Cardiovascular: See HPI, Chest Pain, Edema; Denies Lightheadedness Gastrointestinal: Denies Abdominal Pain, Denies Constipated, Denies Diarrhea, Denies Nausea, Denies Vomiting Genitourinary: Denies Burning, Denies Discharge Musculoskeletal: No back pain, No joint pain All Other Systems Reviewed Negative Unless Noted: Yes Past Xtscnrj-Ydiooq-Gowonh Hx Patient Social History Tobacco Use?: No Smoking Status: Former Smoker Use of E-Cig and/or Vaping dev: No Substance use?: No Immunizations Up To Date Tetanus Booster (TDap): Unknown Past Medical History Surgeries: Yes Orthopedic Respiratory: No Cardiac: Yes Hypertension Neurological: No Genitourinary: Yes Gastrointestinal: No Musculoskeletal: Yes Chronic Back Pain Endocrine: No HEENT: No Cancer: No Psychosocial: No Integumentary: Yes Family Medical History Cancer, Hypertension Physical Exam Vital Signs Vital Signs - First Documented 12/24/21 14:22 Temp 36.2 Pulse 54 Resp 17 B/P (MAP) 161/90 (113) Pulse Ox 95 Capillary Refill : Height, Weight, BMI Height: '" Weight: lbs. oz. kg; 40.17 BMI Method: General Appearance: Chronically ill, Mild Distress, Obese HEENT: PERRL/EOMI, Pharynx Normal, Moist Mucous Membranes Neck: Full Range of Motion, Normal Inspection, Non Tender Respiratory: Chest Non Tender, Lungs Clear, Normal Breath Sounds, No Accessory Muscle Use, No Respiratory Distress Cardiovascular: Regular Rate, Rhythm, No Edema, Normal Peripheral Pulses Gastrointestinal: Normal Bowel Sounds, Non Tender, Soft Extremity: Normal Capillary Refill, Normal Inspection; No No Pedal Edema (Bilateral 1+ pedal edema, little worse on the left) Neurologic/Psychiatric: Alert, Oriented x3, No Motor/Sensory Deficits Progress/Results/Core Measures Results/Orders Lab Results Laboratory Tests Test 12/24/21 14:32 12/24/21 14:46 12/24/21 15:34 12/24/21 16:01 Range/Units Blood Gas Puncture Site UNK TBD Blood Gas Patient Temperature 97.2 97.2 Arterial Blood pH 7.35 L 7.38 7.37-7.43 Arterial Blood Partial Pressure CO2 51 H 43 35-45 MMHG Arterial Blood Partial Pressure O2 30 *L 69 L 79-93 MMHG Arterial Blood HCO3 27 25 23-27 MMOL/L Arterial Blood Total CO2 28.8 26.4 21.0-31.0 MMOL/L Arterial Blood Oxygen Saturation 54 L 95 94-100 % Arterial Blood Base Excess 1.9 0.4 -2.5-2.5 MMOL/L Pernell Test UNK UNK Blood Gas Ventilator Setting NO NO Blood Gas Inspired Oxygen 0 N/A White Blood Count 3.8 L 4.3-11.0 10^3/uL Red Blood Count 3.51 L 4.30-5.52 10^6/uL Hemoglobin 8.6 L 13.3-17.7 g/dL Hematocrit 29 L 40-54 % Mean Corpuscular Volume 81 80-99 fL Mean Corpuscular Hemoglobin 25 25-34 pg Mean Corpuscular Hemoglobin Concent 30 L 32-36 g/dL Red Cell Distribution Width 16.3 H 10.0-14.5 % Platelet Count 88 L 130-400 10^3/uL Mean Platelet Volume 11.1 9.0-12.2 fL Immature Granulocyte % (Auto) 0 % Neutrophils (%) (Auto) 56 42-75 % Lymphocytes (%) (Auto) 32 12-44 % Monocytes (%) (Auto) 8 0-12 % Eosinophils (%) (Auto) 4 0-10 % Basophils (%) (Auto) 1 0-10 % Neutrophils # (Auto) 2.1 1.8-7.8 10^3/uL Lymphocytes # (Auto) 1.2 1.0-4.0 10^3/uL Monocytes # (Auto) 0.3 0.0-1.0 10^3/uL Eosinophils # (Auto) 0.2 0.0-0.3 10^3/uL Basophils # (Auto) 0.0 0.0-0.1 10^3/uL Immature Granulocyte # (Auto) 0.0 0.0-0.1 10^3/uL Percent Immature Platelet Fraction 12.0 H 0.0-7.6 % Prothrombin Time 15.2 H 12.2-14.7 SEC INR Comment 1.2 0.8-1.4 Activated Partial Thromboplast Time 31 24-35 SEC Sodium Level 135 135-145 MMOL/L Potassium Level 3.9 3.6-5.0 MMOL/L Chloride Level 100 98-107 MMOL/L Carbon Dioxide Level 23 21-32 MMOL/L Anion Gap 12 5-14 MMOL/L Blood Urea Nitrogen 15 7-18 MG/DL Creatinine 1.15 0.60-1.30 MG/DL Estimat Glomerular Filtration Rate 70 BUN/Creatinine Ratio 13 Glucose Level 106 H 70-105 MG/DL Calcium Level 8.5 8.5-10.1 MG/DL Corrected Calcium 8.6 8.5-10.1 MG/DL Magnesium Level 1.6 1.6-2.4 MG/DL Total Bilirubin 0.6 0.1-1.0 MG/DL Aspartate Amino Transf (AST/SGOT) 16 5-34 U/L Alanine Aminotransferase (ALT/SGPT) 15 0-55 U/L Alkaline Phosphatase 78 40-136 U/L Myoglobin 116.0 H 10.0-92.0 NG/ML Troponin I < 0.028 <0.028 NG/ML B-Type Natriuretic Peptide 202.2 H <100.0 PG/ML Total Protein 6.5 6.4-8.2 GM/DL Albumin 3.9 3.2-4.5 GM/DL Influenza Type A (RT-PCR) Not Detected Not Detecte Influenza Type B (RT-PCR) Not Detected Not Detecte SARS-CoV-2 RNA (RT-PCR) Not Detected Not Detecte My Orders Orders - EVELIA CEBALLOS Cbc With Automated Diff (12/24/21 14:42) Magnesium (12/24/21 14:42) Chest 1 View, Ap/Pa Only (12/24/21 14:42) Ekg Tracing (12/24/21 14:42) Comprehensive Metabolic Panel (12/24/21 14:42) Myoglobin Serum (12/24/21 14:42) Protime With Inr (12/24/21 14:42) Partial Thromboplastin Time (12/24/21 14:42) O2 (12/24/21 14:42) Monitor-Rhythm Ecg Trace Only (12/24/21 14:42) Lipid Panel (12/25/21 06:00) Ed Iv/Invasive Line Start (12/24/21 14:42) Bnp Albino (12/24/21 14:42) Troponin I Winkler (12/24/21 14:42) Aspirin Chewable Tablet (Baby Aspirin Ch (12/24/21 14:45) Arterial Blood Gas (12/24/21 14:46) Covid 19 Inhouse Test (12/24/21 15:22) Influenza A And B By Pcr (12/24/21 15:22) Arterial Blood Gas (12/24/21 15:52) Ed Admission (Communication) (12/24/21 18:03) Ed Iv/Invasive Line Start (12/24/21 18:03) Ns Iv 1000 Ml (Sodium Chloride 0.9%) (12/24/21 18:15) Medications Given in ED Current Medications Medications Dose Ordered Sig/Ngozi Route Start Time Stop Time Status Last Admin Dose Admin Aspirin 324 mg ONCE ONCE PO 12/24/21 14:45 12/24/21 14:46 DC 12/24/21 14:53 324 MG Vital Signs/I&O 12/24/21 14:22 Temp 36.2 Pulse 54 Resp 17 B/P (MAP) 161/90 (113) Pulse Ox 95 Progress Progress Note : Time: 14:50 Progress Note 325 mg aspirin, but this is old on him and will get some basic labs including a troponin back and discussed this with cardiology. Initial ECG Impression Date: Dec 24, 2021 Initial ECG Impression Time: 14:24 Initial ECG Rate: 57 Initial ECG Rhythm: Normal Sinus Initial ECG Intervals: Normal Initial ECG Impression: Normal, Nonspecific Changes Initial ECG Comparisson: No Previous ECG Available Comment Sinus rhythm with right bundle branch block and no clinically relevant ST changes. Diagnostic Imaging Diagonstic Imaging: Xray Plain Films/CT/US/NM/MRI: chest Comments [facility]. [place], [place] NAME: KENDRA KAHN [facility] REC#: [id number] PT STATUS: REG ER : 1955 PHYSICIAN: EVELIA CEBALLOS MD ADMIT DATE: 12/24/21/ER Signed Date of Exam:12/24/21 CHEST 1 VIEW, AP/PA ONLY EXAMINATION: Chest, one view. HISTORY: Chest pain. COMPARISON: 07/03/2020. FINDINGS: Stable enlargement of the cardiac silhouette and prominence of the pulmonary vasculature. Patchy interstitial opacities seen throughout both lungs. No pneumothorax. The osseous structures are intact. IMPRESSION: 1. Cardiomegaly and findings of pulmonary vascular congestion. 2. Patchy interstitial opacities throughout the lungs which can be seen with pulmonary edema or atypical infection. Dictated by: Dictated on workstation # [id number] Dict: 12/24/21 1513 Trans: 12/24/21 1523 [id number] Interpreted by: CARLI WHITE DO Electronically signed by: CARLI WHITE DO 12/24/21 1523 Reviewed: Reviewed by Me Departure Communication (Admissions) Time/Spoke to Admitting Phy: 16:[address] IVORY 3045: Dr. Ivory agrees to accept the patient however there are no ICU or med telemetry beds until the morning. She agrees to room in overnight in the ER. The patient is okay with this plan. She would like to consult cardiology as well as hematology. She will put in queued orders. Time/Spoke to Consulting Phy: 16:43 Discussed the case with Dr. hCu and he agrees to consult for cardiology. 1730: Discussed the case with Dr. Camacho, hematology who agrees to consult and see the patient tomorrow. Impression Primary Impression: Chest pain Qualified Codes: R07.9 - Chest pain, unspecified Additional Impressions: Symptomatic sinus bradycardia Beta lili toxicity Disposition: ADMITTED INPATIENT Condition: Stable Admissions Decision to Admit Reason: Admit from ER (General) Decision to Admit/Date: Dec 24, 2021 Time/Decision to Admit Time: 16:40 Departure-Patient Inst. Referrals: MATI MALDONADO MD (PCP/Family) Primary Care Physician EVELIA CEBALLOS Dec 24, 2021 14:46
[2021-12-24 14:49] LABS: BASOPHILS % (AUTO) 1 % (0-10); HEMOGLOBIN 8.6 g/dL (13.3-17.7); MEAN PLATELET VOLUME 11.1 fL (9.0-12.2)
[2021-12-24 14:51] LABS: EOSINOPHILS # (AUTO) 0.2 10^3/uL (0.0-0.3); EOSINOPHILS % (AUTO) 4 % (0-10); HEMATOCRIT 29 % (40-54); LYMPHOCYTES # (AUTO) 1.2 10^3/uL (1.0-4.0); LYMPHOCYTES % (AUTO) 32 % (12-44); MEAN CORPUSCULAR HEMOGLOBIN 25 pg (25-34); MEAN CORPUSCULAR HGB CONC 30 g/dL (32-36); MEAN CORPUSCULAR VOLUME 81 fL (80-99); MONOCYTES # (AUTO) 0.3 10^3/uL (0.0-1.0); MONOCYTES % (AUTO) 8 % (0-12); NEUTROPHILS # (AUTO) 2.1 10^3/uL (1.8-7.8); NEUTROPHILS % (AUTO) 56 % (42-75); PLATELET COUNT 88 10^3/uL (130-400); WHITE BLOOD COUNT 3.8 10^3/uL (4.3-11.0)
[2021-12-24 14:52] LABS: ABG BASE EXCESS 1.9 MMOL/L (-2.5-2.5); ABG OXYGEN SATURATION 54 % (94-100); ABG PCO2 51 MMHG (35-45); ABG PH 7.35 (7.37-7.43); ABG TCO2 28.8 MMOL/L (21.0-31.0)
[2021-12-24 14:54] LABS: ALBUMIN 3.9 GM/DL (3.2-4.5); POTASSIUM 3.9 MMOL/L (3.6-5.0)
[2021-12-24 14:54] LABS: ABG PO2 30 MMHG (79-93)
[2021-12-24 14:55] LABS: CALCIUM 8.5 MG/DL (8.5-10.1); INR 1.2 (0.8-1.4); PROTHROMBIN TIME PATIENT 15.2 SEC (12.2-14.7)
[2021-12-24 14:55] LABS: INSPIRED O2 0; PATIENT TEMP 97.2; VENTILATOR NO
[2021-12-24 14:56] LABS: TOTAL PROTEIN 6.5 GM/DL (6.4-8.2)
[2021-12-24 14:58] LABS: BILIRUBIN,TOTAL 0.6 MG/DL (0.1-1.0)
[2021-12-24 15:00] LABS: CREATININE SERUM 1.15 MG/DL (0.60-1.30)
[2021-12-24 15:03] LABS: MAGNESIUM 1.6 MG/DL (1.6-2.4)
--- NOTE | 2021-12-24 15:16 | Diagnostic Imaging Report ---
EXAMINATION: Chest, one view. HISTORY: Chest pain. COMPARISON: 07/03/2020. FINDINGS: Stable enlargement of the cardiac silhouette and prominence of the pulmonary vasculature. Patchy interstitial opacities seen throughout both lungs. No pneumothorax. The osseous structures are intact. IMPRESSION: 1. Cardiomegaly and findings of pulmonary vascular congestion. 2. Patchy interstitial opacities throughout the lungs which can be seen with pulmonary edema or atypical infection. Dictated by: Dictated on workstation # [id number]
[2021-12-24 16:05] LABS: ABG BASE EXCESS 0.4 MMOL/L (-2.5-2.5); ABG OXYGEN SATURATION 95 % (94-100); ABG PCO2 43 MMHG (35-45); ABG PH 7.38 (7.37-7.43); ABG PO2 69 MMHG (79-93); ABG TCO2 26.4 MMOL/L (21.0-31.0)
[2021-12-24 16:06] LABS: PATIENT TEMP 97.2; VENTILATOR NO
[2021-12-24] MEDS ORDERED: NS IV 1000 ML 1,000 ML IV SCH (18:15)
[2021-12-24] MEDS ORDERED: MILK OF MAGNESIA 400 MG/5 ML 30 ML UDC PO PRN (20:00)
[2021-12-24] MEDS ORDERED: CALCIUM CARBONATE 500 MG (TUMS) TAB.CHEW PO PRN (20:00)
[2021-12-24] MEDS ORDERED: ONDANSETRON 4 MG (ZOFRAN) ORAL DISSOLVE TAB PO PRN (20:00)
[2021-12-24] MEDS ORDERED: morphine INJ 4 MG/ML 1 ML (VIAL/SYRINGE) IV PRN (20:00)
[2021-12-24] MEDS ORDERED: ACETAMINOPHEN 325 MG TABLET PO PRN (20:00)
[2021-12-24] MEDS ORDERED: diphenhydrAMINE 25 MG TAB (BENADRYL) PO PRN (20:00)
[2021-12-24] MEDS ORDERED: diphenhydrAMINE 50 MG/ML INJ (BENADRYL) IVP PRN (20:00)
[2021-12-24] MEDS ORDERED: ONDANSETRON 4 MG/2 ML (SDV) Z0FRAN IV PRN (20:00)
[2021-12-24] MEDS ORDERED: BISACODYL 10 MG SUPP (DULCOLAX) PR PRN (20:00)
[2021-12-24] MEDS ORDERED: ANTACID SUSP 30 ML UDC (MYLANTA) PO PRN (20:00)
[2021-12-24] MEDS ORDERED: polyethylene glycoL POWDER 17 GM (MIRALAX) PACK PO PRN (20:00)
[2021-12-24] MEDS ORDERED: LACTULOSE SYRUP 10GM/15ML (ENULOSE) 30ML UDC PO PRN (20:00)
[2021-12-24] MEDS ORDERED: amLODIPine 5 MG (NORVASC) TAB PO ONE (20:30)
[2021-12-24 20:55] LABS: RETICULOCYTE % 2.04 % (0.50-2.40)
[2021-12-24] MEDS: DOCUSATE SODIUM 100 MG (COLACE) CAP PO SCH (21:51)
[2021-12-24] MEDS: SENNOSIDES 8.6 MG (SENOKOT) TAB PO SCH (21:51)
[2021-12-24] MEDS ORDERED: RT-ALBUTEROL SULF 2.5 MG/3 ML PRE-MIX VIAL INH PRN (22:00)
[2021-12-24] MEDS ORDERED: RT-ALBUTEROL SULF 2.5 MG/3 ML PRE-MIX VIAL ONE (22:42)
[2021-12-24] MEDS: RT-ALBUTEROL SULF 2.5 MG/3 ML PRE-MIX VIAL INH SCH (22:44)
[2021-12-25] VITALS (9 sets, daily range): BP systolic 130–179; BP diastolic 68–93
[2021-12-25] MEDS: MELATONIN 3 MG TABLET PO PRN ×2 (00:39→20:05)
[2021-12-25] MEDS: RT-ALBUTEROL SULF 2.5 MG/3 ML PRE-MIX VIAL INH SCH ×6 (02:44→21:58)
[2021-12-25 05:18] LABS: BASOPHILS % (AUTO) 1 % (0-10); EOSINOPHILS # (AUTO) 0.2 10^3/uL (0.0-0.3); EOSINOPHILS % (AUTO) 4 % (0-10); HEMATOCRIT 29 % (40-54); HEMOGLOBIN 8.6 g/dL (13.3-17.7); LYMPHOCYTES # (AUTO) 1.3 10^3/uL (1.0-4.0); LYMPHOCYTES % (AUTO) 26 % (12-44); MEAN CORPUSCULAR HEMOGLOBIN 24 pg (25-34); MEAN CORPUSCULAR HGB CONC 30 g/dL (32-36); MEAN CORPUSCULAR VOLUME 81 fL (80-99); MONOCYTES # (AUTO) 0.3 10^3/uL (0.0-1.0); MONOCYTES % (AUTO) 7 % (0-12); NEUTROPHILS % (AUTO) 62 % (42-75); PLATELET COUNT 103 10^3/uL (130-400); WHITE BLOOD COUNT 4.8 10^3/uL (4.3-11.0)
[2021-12-25 05:32] LABS: ALBUMIN 3.8 GM/DL (3.2-4.5)
[2021-12-25 05:33] LABS: CALCIUM 8.8 MG/DL (8.5-10.1)
[2021-12-25 05:34] LABS: TOTAL PROTEIN 6.3 GM/DL (6.4-8.2)
[2021-12-25 05:36] LABS: BILIRUBIN,TOTAL 0.9 MG/DL (0.1-1.0)
[2021-12-25 05:38] LABS: CREATININE SERUM 1.07 MG/DL (0.60-1.30)
--- NOTE | 2021-12-25 09:50 | Consultation ---
[facility] 12/25/21 0950: HPI History of Present Illness: HPI/Chief Complaint CC: Pancytopenia Heme-Onc was consulted for pancytopenia in a 66 yo M presented to the ED yesterday due to chest pain that resolved in route to the hospital. Patient received a CBC revealing a low WBC of 3.8, low Hgb of 8.6, and low platelets of 88,000. Patient has received another CBC since that time with improvement in his WBC (3.8 to 4.8) and improvement in platelets (88,000 to 103,000). Hgb appears to be stable at 8.6 as he did not receive any blood. Patient does report having a history of anemia which he took oral iron, as well as period of heavy drinking which he quit 2 years ago and takes folate and thiamine. He received an ultrsound [address] [facility] revealing minimal ascites, diffuse fatty infiltration of the liver, and mild splenomegaly. Reports receiving a colonoscopy 1 month ago which revealed a polyp and hemorrhoids. Patients shortness of breath is slightly improved from yesterday. Source: patient, spouse Date Seen 12/25/21 Attending Physician Corrina Mckinney DO PCP Lj Maldonado MD Referring Physician Date of Admission Dec 24, 2021 at 18:11 Home Medications & Allergies Home Medications Reviewed patient Home Medication Reconciliation performed by pharmacy medication reconciliations computer forensics technician and/or nursing. Patients Allergies have been reviewed. Allergies Allergies Coded Allergies No Known Drug Allergies (Unverified05/30/20) Past Ggmsroq-Iabsjs-Jenkoy Hx Patient Social History Marrital Status: Tobacco Use?: No Tobacco type used: Cigarettes Smoking Status: Former Smoker Use of E-Cig and/or Vaping dev: No Substance use?: No Alcohol Use?: No Additional Alcohol Comments: PT QUIT 2 YEARS AGO Pt feels they are or have been: No Current Status Advance Directives: No Communicates: Verbally Primary Language: Maldivian Preferred Spoken Language: Maldivian Is interpretation needed?: No Implanted or Applied Medical D: None Past Medical History Surgeries: Orthopedic Hypertension Chronic Back Pain EtOH Dependence Family Medical History Cancer, Hypertension Review of Systems Constitutional: No chills, No fever EENTM: No ear pain, No eye pain Respiratory: No cough; dyspnea on exertion; No hemoptysis Cardiovascular: edema (LE bilaterally, L>R); No palpitations Gastrointestinal: No abdominal pain, No melena Genitourinary: No hematuria Physical Exam Physical Exam Vital Signs Vital Signs - First Documented 12/24/21 14:22 Temp 36.2 Pulse 54 Resp 17 B/P (MAP) 161/90 (113) Pulse Ox 95 Capillary Refill : Height, Weight, BMI Height: '" Weight: lbs. oz. kg; 45.17 BMI Method: General Appearance: No Apparent Distress, Chronically ill, Mild Distress, Obese Eyes: Bilateral Eye EOMI HEENT: PERRL/EOMI, Pharynx Normal, Moist Mucous Membranes Neck: Non Tender, Supple Respiratory: Chest Non Tender, Lungs Clear, Normal Breath Sounds, No Accessory Muscle Use, No Respiratory Distress Cardiovascular: Regular Rate, Rhythm, No Edema, Normal Peripheral Pulses Gastrointestinal: Normal Bowel Sounds, Non Tender, Soft, Distended (Chronic) Extremity: Normal Capillary Refill, Normal Inspection; No No Pedal Edema (Bilateral 1+ pedal edema, L >R) Neurologic/Psychiatric: Alert, Oriented x3, No Motor/Sensory Deficits Skin: Normal Color, Warm/Dry Results Results/Procedures Labs Laboratory Tests 12/24/21 14:46 12/25/21 05:08 Patient resulted labs reviewed. Assessment/Plan Assessment and Plan Assess & Plan/Chief Complaint Anemia - Iron studies - Fecal Occult blood test - blood transfusion if below 7 per protocol Leukopenia - resolved (3.8 to 4.8) Thrombocytopenia - improved from 88 to 103 - possibly platelet sequestration due to mild splenomegaly No Bone marrow biopsy indicated at this moment After discharge, would like to see the patient at clinic in 2-3 months Clinical Quality Measures DVT/VTE Risk/Contraindication: Other: nemia and low platelets YOLIS MATA MD 12/25/21 1047: Supervisory-Addendum Brief Verification & Attestation Participated in pt care: history, MDM, physical Personally performed: exam, history, MDM, supervision of care Care discussed with: Medical Student Procedures: n/a Results interpretation: Verified all documentation I discussed this patient and his management with the student and concur his note. ACE CROWLEY MED STUD Dec 25, 2021 09:50 YOLIS MATA MD Dec 25, 2021 10:47
[2021-12-25] MEDS: SENNOSIDES 8.6 MG (SENOKOT) TAB PO SCH ×2 (11:26→20:05)
[2021-12-25] MEDS: amLODIPine 5 MG (NORVASC) TAB PO SCH (11:27)
[2021-12-25] MEDS: PANTOPRAZOLE 40 MG (PROTONIX) TAB PO SCH (11:27)
[2021-12-25] MEDS: DOCUSATE SODIUM 100 MG (COLACE) CAP PO SCH ×2 (11:27→20:05)
--- NOTE | 2021-12-25 11:39 | History & Physical-Hospitalist ---
WILBUR CAR 12/25/21 1139: History of Present Illness HPI/Chief Complaint CC: chest pressure HPI: The patient is a 66 YO male with a PMH of HTN and hyperlipedemia here for complaints of chest pressure. The patient reports that over the past 2 weeks he has been having progressively worsening chest pressure only with exertion. He also reports associated symptoms of shortness of breath on exertion. He presented to the ED yesterday due to these complaints via EMS who reported he had a HR between 30-50 BPM. He was given chewable aspirin at the ED, with EKG showing sinus rythm with RBBB and no ST changes. The patient reports he has been taking carvedilol and metoprolol, and also Bumex, amlodipine and losartan. Today when I saw the PT he was in good spirits and was not in acute distress. He denies any chest pressure and he reports his shortness of breath has improved. Date Seen 12/25/21 Time Seen by a Provider: 09:20 Attending Physician Corrina Ivory DO PCP Self,Lj FELIPE Referring Physician Date of Admission Dec 24, 2021 at 18:11 Home Medications & Allergies Home Medications Reviewed patient Home Medication Reconciliation performed by pharmacy medication reconciliations press technician and/or nursing. Patients Allergies have been reviewed. Allergies Allergies Coded Allergies No Known Drug Allergies (Unverified05/30/20) Past Hwdqles-Gkjrvi-Czzpxh Hx Patient Social History Marrital Status: Tobacco Use?: No Tobacco type used: Cigarettes Smoking Status: Former Smoker Use of E-Cig and/or Vaping dev: No Substance use?: No Alcohol Use?: No Additional Alcohol Comments: PT QUIT 2 YEARS AGO Pt feels they are or have been: No Current Status Advance Directives: No Communicates: Verbally Primary Language: Sammarinese Preferred Spoken Language: Sammarinese Is interpretation needed?: No Implanted or Applied Medical D: None Past Medical History Surgeries: Orthopedic Hypertension Chronic Back Pain EtOH Dependence Family Medical History Cancer, Hypertension Review of Systems Constitutional: No chills, No fever EENTM: No blurred vision, No double vision Respiratory: No cough, No short of breath Cardiovascular: edema (L leg); No palpitations Gastrointestinal: No abdominal pain, No diarrhea Psychiatric/Neurological: Denies Anxiety, Denies Depressed Physical Exam Physical Exam Vital Signs Vital Signs - First Documented 12/24/21 14:22 Temp 36.2 Pulse 54 Resp 17 B/P (MAP) 161/90 (113) Pulse Ox 95 Capillary Refill : Height, Weight, BMI Height: '" Weight: lbs. oz. kg; 45.17 BMI Method: General Appearance: No Apparent Distress, Obese Eyes: Bilateral Eye Normal Inspection, Bilateral Eye PERRL, Bilateral Eye EOMI HEENT: PERRL/EOMI, Moist Mucous Membranes Neck: Full Range of Motion, Normal Inspection, Non Tender, Supple Respiratory: Chest Non Tender, Lungs Clear, Normal Breath Sounds, No Accessory Muscle Use, No Respiratory Distress Cardiovascular: No Murmur, Normal Peripheral Pulses, Bradycardia Gastrointestinal: Normal Bowel Sounds, No Organomegaly, No Pulsatile Mass, Non Tender, Soft Extremity: Normal Inspection, Normal Range of Motion, Non Tender, No Calf Tenderness, Pedal Edema (of L leg (chronic due to L LE surgical history)) Neurologic/Psychiatric: Alert, Oriented x3, No Motor/Sensory Deficits, Normal Mood/Affect Skin: Normal Color, Warm/Dry Lymphatic: No Adenopathy Results Results/Procedures Labs Laboratory Tests 12/24/21 14:46 12/25/21 05:08 Patient resulted labs reviewed. Assessment/Plan Admission Diagnosis Symptomatic sinus bradycardia secondary to beta lili toxicity Assessment and Plan Assessment: Symptomatic sinus bradycardia Beta lili toxicity Right bundle branch block Leukopenia Anemia Thrombocytopenia Plan: Symptomatic sinus bradycardia Beta lili toxicity Right bundle branch block Appreciate Cardiology, who was consulted, and echocardiogram was completed this morning. PT will continue on amlodipine and albuterol. Repeat EKG due to abnormalities on telemetry this morning. Continue as NPO. Leukopenia Anemia Thrombocytopenia Hematology consulted due to the patient's leukopenia, anemia and thrombocytopenia. PT is stable from a hematologic standpoint. Hematology recommended he start on oral iron therapy, and follow up in two months with them as an outpatient. Clinical Quality Measures DVT/VTE Risk/Contraindication: Other: nemia and low platelets CORRINA IVORY DO 12/25/212007: History of Present Illness HPI/Chief Complaint CC: Symptomatic bradycardia HPI: This is a 66 yr old WM who presented to the ER with fatigue, weakness, and SOB. Pt was found to have symptomatic bradycardia of the 30's and 40's. Apparently upon further evaluation he was found to have anemia and pancytopenia requiring consultation with Dr. Camacho. In addition he had been taking Coreg and Metoprolol both. He was closely monitored in the cardiac step down unit. Dr. Chu will be consulted and we will monitor pt closely in the meantime. We will order an ultrasound to visualize the liver and echocardiogram. Heart rate remains at 61 and appears to have extended QT interval. Pt is doing pretty well Denies any new issues Heart rate remains low Hematology will recommend starting an iron pill and to recheck in 2 months No evidence of any new problems Source: patient Past Hnfucky-Zjylaq-Eczmsd Hx Patient Social History Marrital Status: Employed/Student: retired Smoking Status: Former Smoker Past Medical History High Cholesterol, Hypertension Review of Systems Constitutional: see HPI EENTM: no symptoms reported Respiratory: dyspnea on exertion Cardiovascular: no symptoms reported Gastrointestinal: no symptoms reported Genitourinary: no symptoms reported Musculoskeletal: no symptoms reported Skin: no symptoms reported Psychiatric/Neurological: No Symptoms Reported All Other Systems Reviewed Negative Unless Noted: Yes Physical Exam Physical Exam General Appearance: No Apparent Distress, Chronically ill, Obese Eyes: Right Eye Normal Inspection, Right Eye PERRL HEENT: PERRL/EOMI, Normal ENT Inspection, Pharynx Normal, Moist Mucous Membranes Neck: Full Range of Motion, Normal Inspection, Non Tender Respiratory: Chest Non Tender, Lungs Clear, Normal Breath Sounds, No Accessory Muscle Use, No Respiratory Distress Cardiovascular: No Edema, No Gallop, No JVD, No Murmur, Normal Peripheral Pulses, Bradycardia Gastrointestinal: Normal Bowel Sounds, No Organomegaly, No Pulsatile Mass, Non Tender, Soft Back: Normal Inspection, No CVA Tenderness, No Vertebral Tenderness Extremity: Normal Capillary Refill, Normal Inspection, Normal Range of Motion, Non Tender, No Calf Tenderness, No Pedal Edema Neurologic/Psychiatric: Alert, Oriented x3, No Motor/Sensory Deficits, Normal Mood/Affect Skin: Normal Color, Warm/Dry Lymphatic: No Adenopathy Assessment/Plan Admission Diagnosis Assessment: Symptomatic bradycardia due to Coreg and metoprolol taken together Increased QT interval Pancytopenia Fatty liver on ultrasound Plan: Hold BB Cardiology consult ECHO USG Heme c/s Admission Status: Observation Supervisory-Addendum Brief Verification & Attestation Participated in pt care: history, MDM, physical Personally performed: exam, history, MDM, supervision of care Care discussed with: Medical Student Procedures: n/a Results interpretation: Verified all documentation Verification and Attestation of Medical Student E/M Service A medical student performed and documented this service in my presence. I reviewed and verified all information documented by the medical student and made modifications to such information, when appropriate. I personally performed the physical exam and medical decision making. Corrina Ivory, Dec 26, 2021,05:35 WILBUR CAR Dec 25, 2021 11:39 CORRINA IVORY DO Dec 25, 2021 20:08
--- NOTE | 2021-12-25 13:43 | Diagnostic Imaging Report ---
INDICATION: Cirrhosis. COMPARISON: 07/02/2020. PROCEDURE: Ultrasound abdomen complete. TECHNIQUE: Multiple real-time grayscale images were obtained of the abdomen in various projections. FINDINGS: The pancreas is not well seen due to bowel gas. Imaged portions of the aorta and IVC are unremarkable. The liver is mildly prominent measuring 19.6 cm in length. Echogenicity appears normal. No focal liver lesions are seen. There is no biliary dilatation. The main portal vein is hepatopetal. The gallbladder wall is at the upper limit of normal measuring 3 mm. There are a few small echogenic foci in the gallbladder, may represent small stones. Sonographic Hussein's sign is negative. The common bile duct measures 6 mm in diameter, which is at the upper limit of normal. The right kidney measures 10.8 cm in length, and the left kidney measures 10.9 cm in length. There is no hydronephrosis. No masses are seen. No calculi are seen. The spleen measures 12.4 cm in length. No free fluid is seen. IMPRESSION: 1. Mild hepatomegaly. No focal liver lesion is seen. 2. Cholelithiasis without other findings of cholecystitis. Dictated by: Dictated on workstation # [id number]
[2021-12-25] MEDS ORDERED: ZINC50TA58 PO (14:37)
[2021-12-25] MEDS ORDERED: ROSU20TA32 PO (14:37)
[2021-12-25] MEDS ORDERED: MTP25TSR PO (14:37)
[2021-12-25] MEDS ORDERED: TMSL.4C PO (14:37)
[2021-12-25] MEDS ORDERED: MULT-1136 PO (14:37)
[2021-12-25] MEDS ORDERED: CYAN-41 PO (14:37)
[2021-12-25] MEDS ORDERED: CHOL10007 PO (14:37)
[2021-12-25] MEDS ORDERED: HYDR-3820 PO (14:37)
[2021-12-25] MEDS ORDERED: SILD100T67 PO (15:11)
[2021-12-25] MEDS ORDERED: BUME0.5T5 PO (15:11)
[2021-12-25] MEDS ORDERED: LOSARTAN 50 MG (COZAAR) TAB PO NR (17:30)
[2021-12-25] MEDS ORDERED: REGADENOSON 0.4 MG/5 ML SYR (LEXISCAN) IV ONE (17:30)
--- NOTE | 2021-12-25 17:54 | Consultation-Cardiology ---
HPI-Cardiology Cardiology Consultation: Date of Consultation 12/25/21 Date of Admission 12/24/21 Attending Physician Corrina Mckinney DO Admitting Physician Lj Maldonado MD Consulting Physician AD GENTILE JR, MD HPI: Time Seen by a Provider: 17:49 Chief Complaint: Reason for consultation: Bradycardia. I had the pleasure of seeing Zechariah on the cardiac stepdown unit at [facility] in [place], [place] today. About 2 weeks ago he started developing progressive dyspnea on exertion. At times, when he would feel short of breath, his chest would also feel tight. As time went on, then he started having lightheaded and dizzy spells. He denies any syncope. He states that his heart rate was going up and down. The dyspnea progressed and ultimately he went to the emergency room for further evaluation. He was found to have severe bradycardia and was admitted to the hospital. In retrospect, the patient realized that he is taking both carvedilol and metoprolol. He has chronic bilateral lower extremity edema which may be slightly worse over the past couple of weeks. He denies chest discomfort at rest. He denies paroxysmal nocturnal dyspnea, with apnea, or palpitations. Because of the bradycardia, a cardiology consultation was requested. Certain portions of this document may have been dictated utilizing voice recognition technology. Inherent to this technology, typographical and grammatical errors may exist. As much as I am diligent to identify and correct these mistakes, some errors may remain in the document. Review of Systems-Cardiology Review of Systems Other comments Review of 10 organ systems is as per the history of present illness, otherwise negative. All Other Systems Reviewed Negative Unless Noted: Yes PAG-Slxeyi-Ykrcca Hx Patient Social History Marrital Status: Smoking Status: Former Smoker 2nd Hand Smoke Exposure: Yes Have you traveled recently?: No Alcohol Use?: No Pt feels they are or have been: No Tobacco type used: Cigarettes Immunizations Up To Date Tetanus Booster (TDap): Unknown Past Medical History PMH As described under Assessment. Family Medical History Family Medical History: The patient does not know of any family history of premature coronary artery disease in first-degree relatives. His father had heart disease but at an older age. Allergies and Home Medications Allergies Coded Allergies: No Known Drug Allergies (Unverified , 05/30/20) Patient Home Medication List Home Medication List Reviewed: Yes Amlodipine Besylate (Amlodipine Besylate) 5 Mg Tablet, 5 MG PO DAILY, (Reported) Entered as Reported by: NIEVES DIMAS on 07/03/201319 Last Action: Reviewed Bumetanide (Bumetanide) 0.5 Mg Tablet, 0.5 MG PO DAILY, (Reported) Entered as Reported by: NIEVES DIMAS on 12/25/21 1511 Last Action: Reviewed Carvedilol (Carvedilol) 25 Mg Tablet, 25 MG PO BID, (Reported) Entered as Reported by: NIEVES DIMAS on 07/03/201319 Last Action: Reviewed Cholecalciferol (Vitamin D3) (Vitamin D3) 25 Mcg (1000 Unit) Capsule, 25 MCG PO HS, (Reported) Entered as Reported by: NIEVES DIMAS on 12/25/211436 Last Action: Reviewed Cyanocobalamin (Vitamin B-12) (Vitamin B-12) 1,000 Mcg Tablet, 1,000 MCG PO DAILY, (Reported) Entered as Reported by: NIEVES DIMAS on 12/25/211436 Last Action: Reviewed Hydrocodone/Acetaminophen (Hydrocodone-Acetamin 10-325 mg) 10 Mg-325 Mg Tablet, 1 EA PO TID PRN for PAIN-MODERATE (5-7), (Reported) Entered as Reported by: NIEVES DIMAS on 12/25/211436 Last Action: Reviewed Metformin HCl (Metformin HCl) 500 Mg Tablet, 500 MG PO BID WITH MEALS, (Reported) Entered as Reported by: NIEVES DIMAS on 07/03/201319 Last Action: Reviewed Metoprolol Succinate (Metoprolol Succinate) 25 Mg Tab.er.24h, 25 MG PO DAILY, (Reported) Entered as Reported by: NIEVES DIMAS on 12/25/211436 Last Action: Reviewed Multivitamin (Multivitamin) 1 Each Tablet, 1 EACH PO HS, (Reported) Entered as Reported by: NIEVES DIMAS on 12/25/211436 Last Action: Reviewed Pantoprazole Sodium (Pantoprazole Sodium) 40 Mg Tablet.dr, 40 MG PO HS, (Reported) Entered as Reported by: NIEVES DIMAS on 07/03/201319 Last Action: Reviewed Rosuvastatin Calcium (Rosuvastatin Calcium) 20 Mg Tablet, 20 MG PO DAILY, (Reported) Entered as Reported by: NIEVES DIMAS on 12/25/211436 Last Action: Reviewed Sildenafil Citrate (Sildenafil Citrate) 100 Mg Tablet, 100 MG PO UD PRN for ED, (Reported) Entered as Reported by: NIEVES DIMAS on 12/25/21 1511 Last Action: Reviewed Tamsulosin HCl (Flomax) 0.4 Mg Cap, 0.4 MG PO HS, (Reported) Entered as Reported by: NIEVES DIMAS on 12/25/211436 Last Action: Reviewed Zinc (Zinc) 50 Mg Tablet, 50 MG PO HS, (Reported) Entered as Reported by: NIEVES DIMAS on 12/25/211436 Last Action: Reviewed Discontinued Medications Bumetanide (Bumetanide) 2 Mg Tablet, 2 MG PO DAILY, (Reported) Discontinued Reason: No Longer Taking Entered as Reported by: NIEVES DIMAS on 07/03/20 132 Last Action: Discontinued Losartan/Hydrochlorothiazide (Losartan-Hctz 100-25 mg Tab) 1 Each Tablet, 1 EA PO DAILY, (Reported) Discontinued Reason: No Longer Taking Entered as Reported by: NIEVES DIMAS on 07/03/20 1320 Last Action: Discontinued Mupirocin (Mupirocin) 22 Gm Oint...g., 1 APPLIC TOP BID, (Reported) Discontinued Reason: No Longer Taking Entered as Reported by: NIEVES DIMAS on 07/03/20 1320 Last Action: Discontinued Sennosides/Docusate Sodium (Senna-Time S Tablet) 1 Each Tablet, 1 EA PO BID Discontinued Reason: No Longer Taking Prescribed by: JM CORONADO on 07/05/20 1038 Last Action: Discontinued Thiamine HCl (Vitamin B-1) 100 Mg Tablet, 100 MG PO DAILY@0700 Discontinued Reason: No Longer Taking Prescribed by: JM CORONADO on 07/05/20 1038 Last Action: Discontinued [Folic Acid] 1 MG TAB, 1 MG PO DAILY Discontinued Reason: No Longer Taking Prescribed by: JM CORONADO on 07/05/20 1038 Last Action: Discontinued Exam Vital Signs Vital Signs Date Time Temp Pulse Resp B/P (MAP) Pulse Ox O2 Delivery O2 Flow Rate FiO2 12/25/21 18:46 94 Nasal Cannula 1.50 12/25/21 16:50 165/87 (113) 12/25/21 16:00 36.5 57 16 Physical Exam General: Alert. No acute distress. Well nourished and appears stated age. He is morbidly obese. Eye: Extraocular movements are intact. Conjunctivae are clear. There are no xa nthelasma. HENT: Normocephalic. Atraumatic. Carotid pulsations 2/2 without bruits. Neck: Jugular venous pressure does not appear elevated. No thyromegaly appreciated. Respiratory: Lungs are clear to auscultation. Respirations are non-labored. Breath sounds are equal. Symmetrical chest wall expansion. Cardiovascular: Normal rate. Regular rhythm. Distant S1/S2. No murmur. No gallop. Point of maximal impulse is not appear displaced. Good pulses equal in all extremities. 3+ bilateral pretibial edema without venous stasis changes. Gastrointestinal: Soft. Normal bowel sounds. Skin: Skin turgor is normal. There is no pallor. Musculoskeletal: No kyphosis or scoliosis appreciated. Neurologic: Alert and oriented to person, place, time. Cranial nerves 3-12 appear grossly intact. The patient has good motor tone strength in the upper and lower extremities bilaterally. Psychiatric: Cooperative. Appropriate mood & affect. Labs Laboratory Tests Test 12/24/21 20:00 12/25/21 05:08 Range/Units Red Blood Count 3.42 L 3.53 L 4.30-5.52 10^6/uL Absolute Reticulocyte Count 70 24-90 10e9/uL Percent Reticulocyte Count 2.04 0.50-2.40 % Thyroid Stimulating Hormone (TSH) 1.48 0.35-4.94 UIU/ML White Blood Count 4.8 4.3-11.0 10^3/uL Hemoglobin 8.6 L 13.3-17.7 g/dL Hematocrit 29 L 40-54 % Mean Corpuscular Volume 81 80-99 fL Mean Corpuscular Hemoglobin 24 L 25-34 pg Mean Corpuscular Hemoglobin Concent 30 L 32-36 g/dL Red Cell Distribution Width 16.4 H 10.0-14.5 % Platelet Count 103 L 130-400 10^3/uL Mean Platelet Volume 12.0 9.0-12.2 fL Immature Granulocyte % (Auto) 0 % Neutrophils (%) (Auto) 62 42-75 % Lymphocytes (%) (Auto) 26 12-44 % Monocytes (%) (Auto) 7 0-12 % Eosinophils (%) (Auto) 4 0-10 % Basophils (%) (Auto) 1 0-10 % Neutrophils # (Auto) 3.0 1.8-7.8 10^3/uL Lymphocytes # (Auto) 1.3 1.0-4.0 10^3/uL Monocytes # (Auto) 0.3 0.0-1.0 10^3/uL Eosinophils # (Auto) 0.2 0.0-0.3 10^3/uL Basophils # (Auto) 0.0 0.0-0.1 10^3/uL Immature Granulocyte # (Auto) 0.0 0.0-0.1 10^3/uL Sodium Level 137 135-145 MMOL/L Potassium Level 4.0 3.6-5.0 MMOL/L Chloride Level 102 98-107 MMOL/L Carbon Dioxide Level 23 21-32 MMOL/L Anion Gap 12 5-14 MMOL/L Blood Urea Nitrogen 12 7-18 MG/DL Creatinine 1.07 0.60-1.30 MG/DL Estimat Glomerular Filtration Rate 76 BUN/Creatinine Ratio 11 Glucose Level 118 H 70-105 MG/DL Calcium Level 8.8 8.5-10.1 MG/DL Corrected Calcium 9.0 8.5-10.1 MG/DL Total Bilirubin 0.9 0.1-1.0 MG/DL Aspartate Amino Transf (AST/SGOT) 15 5-34 U/L Alanine Aminotransferase (ALT/SGPT) 13 0-55 U/L Alkaline Phosphatase 77 40-136 U/L Total Protein 6.3 L 6.4-8.2 GM/DL Albumin 3.8 3.2-4.5 GM/DL Triglycerides Level 112 <150 MG/DL Cholesterol Level 92 < 200 MG/DL LDL Cholesterol Direct 39 1-129 MG/DL VLDL Cholesterol 22 5-40 MG/DL HDL Cholesterol 34 L 40-60 MG/DL ECG Impression ECG Comment Sinus bradycardia with frequent premature ventricular complexes and right bundle branch block with low voltage. Diagnosis/Problems Diagnosis/Problems (1) Symptomatic sinus bradycardia Status: Acute Assessment & Plan: I suspect this may have been due to taking 2 beta blockers at the same time. Beta blockers are now on hold. I recommend a stress test in the morning to exclude coronary ischemia as a possible cause of the bradycardia. (2) Chest pain Status: Acute Assessment & Plan: Etiology unclear. This sounds consistent with possible angina. In light of the bradycardia, I recommend a stress test as outlined above. (3) Primary hypertension Assessment & Plan: He had been on amlodipine and 2 beta-blockers at home. We have stopped the beta-blockers as outlined above. The amlodipine has been continued. His blood pressure is intermittently elevated. I will start him on losartan. We will need to monitor his renal function closely. If he has persistent peripheral edema, we may want to consider stopping the amlodipine. (4) Mixed hyperlipidemia Assessment & Plan: Continue statin medication. (5) Morbid obesity Status: Chronic Assessment & Plan: He needs to work on weight loss. Problem Qualifiers (1) Chest pain: Chest pain type: unspecified Qualified Codes: R07.9 - Chest pain, unspecified AD GENTILE JR, MD Dec 25, 2021 17:54
[2021-12-26] VITALS (7 sets, daily range): BP systolic 152–243; BP diastolic 83–109
[2021-12-26] MEDS: RT-ALBUTEROL SULF 2.5 MG/3 ML PRE-MIX VIAL INH SCH ×4 (02:48→16:37)
[2021-12-26 06:14] LABS: BASOPHILS % (AUTO) 1 % (0-10); MEAN PLATELET VOLUME 11.8 fL (9.0-12.2)
[2021-12-26 06:16] LABS: EOSINOPHILS # (AUTO) 0.2 10^3/uL (0.0-0.3); EOSINOPHILS % (AUTO) 3 % (0-10); HEMATOCRIT 31 % (40-54); HEMOGLOBIN 9.6 g/dL (13.3-17.7); LYMPHOCYTES # (AUTO) 1.3 10^3/uL (1.0-4.0); LYMPHOCYTES % (AUTO) 22 % (12-44); MEAN CORPUSCULAR HEMOGLOBIN 24 pg (25-34); MEAN CORPUSCULAR HGB CONC 31 g/dL (32-36); MEAN CORPUSCULAR VOLUME 80 fL (80-99); MONOCYTES # (AUTO) 0.4 10^3/uL (0.0-1.0); MONOCYTES % (AUTO) 7 % (0-12); NEUTROPHILS # (AUTO) 3.9 10^3/uL (1.8-7.8); NEUTROPHILS % (AUTO) 67 % (42-75); PLATELET COUNT 118 10^3/uL (130-400); WHITE BLOOD COUNT 5.8 10^3/uL (4.3-11.0)
[2021-12-26 06:28] LABS: ALBUMIN 4.1 GM/DL (3.2-4.5); POTASSIUM 3.6 MMOL/L (3.6-5.0)
[2021-12-26 06:29] LABS: CALCIUM 9.1 MG/DL (8.5-10.1)
[2021-12-26 06:30] LABS: TOTAL PROTEIN 6.8 GM/DL (6.4-8.2)
[2021-12-26 06:32] LABS: BILIRUBIN,TOTAL 1.3 MG/DL (0.1-1.0)
[2021-12-26 06:34] LABS: CREATININE SERUM 1.1 MG/DL (0.60-1.30)
[2021-12-26] MEDS: PANTOPRAZOLE 40 MG (PROTONIX) TAB PO SCH (07:45)
[2021-12-26] MEDS ORDERED: CATHETER FLUSH 10 ML SYR IVP PRN (07:45)
--- NOTE | 2021-12-26 08:28 | Cardiology Progress Note ---
Progress Note-Cardiology Events since last exam Date Seen by Provider: Dec 26, 2021 Time Seen by Provider: 08:26 Events since last exam I am following him due to bradycardia and chest discomfort. He denies chest discomfort at rest. He feels like his chest is back to normal. He has ongoing dyspnea on exertion and peripheral edema but these are improved. He denies palpitations or syncope. He would like to go home today. Certain portions of this document may have been dictated utilizing voice recognition technology. Inherent to this technology, typographical and grammatical errors may exist. As much as I am diligent to identify and correct these mistakes, some errors may remain in the document. Vitals Last set of Vitals Signs Vital Signs 12/26/21 16:40 Temp 37.0 Pulse 71 Resp 22 B/P (MAP) 152/90 Pulse Ox 93 O2 Delivery Room Air O2 Flow Rate 2.00 Labs Labs Laboratory Tests 12/26/21 05:53 Exam Vital Signs Vital Signs Date Time Temp Pulse Resp B/P (MAP) Pulse Ox O2 Delivery O2 Flow Rate FiO2 12/26/21 16:40 37.0 71 22 152/90 93 Room Air 2.00 Physical Exam General: Alert. No acute distress. He is morbidly obese. Eye: No xanthelasma. HENT: Normocephalic. Neck: Jugular venous pressure does not appear elevated. Respiratory: Lungs are clear to auscultation. Respirations are non-labored. Breath sounds are equal. Symmetrical chest wall expansion. Cardiovascular: Normal rate. Regular rhythm. Distant S1/S2. No murmur. No gallop. 2+ bilateral pretibial edema. Gastrointestinal: Soft. Normal bowel sounds. Skin: Warm. Dry. Neurologic: Alert and oriented to person, place, time. Cranial nerves 3-11 grossly intact. Psychiatric: Cooperative. Appropriate mood & affect. Labs Laboratory Tests Test 12/26/21 05:53 Range/Units White Blood Count 5.8 4.3-11.0 10^3/uL Red Blood Count 3.94 L 4.30-5.52 10^6/uL Hemoglobin 9.6 L 13.3-17.7 g/dL Hematocrit 31 L 40-54 % Mean Corpuscular Volume 80 80-99 fL Mean Corpuscular Hemoglobin 24 L 25-34 pg Mean Corpuscular Hemoglobin Concent 31 L 32-36 g/dL Red Cell Distribution Width 16.2 H 10.0-14.5 % Platelet Count 118 L 130-400 10^3/uL Mean Platelet Volume 11.8 9.0-12.2 fL Immature Granulocyte % (Auto) 0 % Neutrophils (%) (Auto) 67 42-75 % Lymphocytes (%) (Auto) 22 12-44 % Monocytes (%) (Auto) 7 0-12 % Eosinophils (%) (Auto) 3 0-10 % Basophils (%) (Auto) 1 0-10 % Neutrophils # (Auto) 3.9 1.8-7.8 10^3/uL Lymphocytes # (Auto) 1.3 1.0-4.0 10^3/uL Monocytes # (Auto) 0.4 0.0-1.0 10^3/uL Eosinophils # (Auto) 0.2 0.0-0.3 10^3/uL Basophils # (Auto) 0.0 0.0-0.1 10^3/uL Immature Granulocyte # (Auto) 0.0 0.0-0.1 10^3/uL Percent Immature Platelet Fraction 8.9 H 0.0-7.6 % Sodium Level 139 135-145 MMOL/L Potassium Level 3.6 3.6-5.0 MMOL/L Chloride Level 101 98-107 MMOL/L Carbon Dioxide Level 24 21-32 MMOL/L Anion Gap 14 5-14 MMOL/L Blood Urea Nitrogen 9 7-18 MG/DL Creatinine 1.10 0.60-1.30 MG/DL Estimat Glomerular Filtration Rate 74 BUN/Creatinine Ratio 8 Glucose Level 121 H 70-105 MG/DL Calcium Level 9.1 8.5-10.1 MG/DL Corrected Calcium 9.0 8.5-10.1 MG/DL Total Bilirubin 1.3 H 0.1-1.0 MG/DL Aspartate Amino Transf (AST/SGOT) 14 5-34 U/L Alanine Aminotransferase (ALT/SGPT) 13 0-55 U/L Alkaline Phosphatase 79 40-136 U/L Total Protein 6.8 6.4-8.2 GM/DL Albumin 4.1 3.2-4.5 GM/DL Radiology ECHOCARDIOGRAM (12/26/2021): 1. This is a technically difficult study due to poor image quality. Intravenous contrast was administered to enhance image quality. 2. Left ventricle: The cavity size is normal. There is severe concentric hype rtrophy. Systolic function is normal. The estimated ejection fraction is 55-60%. Regional wall motion abnormalities cannot be excluded due to poor endocardial definition. Left ventricular diastolic function parameters are normal. 3. Left atrium: The left atrium is moderately dilated with a volume index ranging from 33-49 mL/m. 4. Right atrium: The right atrium is moderately dilated with an area of 25 cm. 5. Aortic valve: There is mild aortic valve sclerosis. 6. Pulmonary arteries: The pulmonary artery pressure cannot be estimated on this study due to inadequate tricuspid regurgitant envelope. REGADENOSON NUCLEAR STRESS TEST (12/26/2021): 1. Normal heart rate and blood pressure response to regadenoson with resting hypertension. 2. There was no chest discomfort or electrocardiogram changes during the test. 3. There were isolated premature supraventricular and premature ventricular complexes throughout the test. 4. There was a small, moderate intensity, fixed apical defect with no evidence of inducible ischemia. 5. There was normal wall motion in all segments with a calculated ejection fraction of 69%. 6. This is an abnormal result although represents low risk for possible future coronary ischemic events. Diagnosis/Problems Diagnosis/Problems (1) Symptomatic sinus bradycardia Status: Acute Assessment & Plan: I suspect this may have been due to taking 2 beta blockers at the same time. Beta blockers are now on hold. His stress test did not show any ischemia that would explain bradycardia. From a cardiac standpoint, the patient can be discharged home. I will schedule him for an outpatient event recorder after discharge. (2) Chest pain Status: Acute Assessment & Plan: Etiology unclear. This sounds consistent with possible angina. His stress test did show a fixed apical defect but there was no isch emia. As such, I recommend he continue on medical therapy with aspirin and statin medication. No beta-lili due to bradycardia. He is taking amlodipine which has some antianginal properties. (3) Primary hypertension Assessment & Plan: He had been on amlodipine and 2 beta-blockers at home. We have stopped the beta-blockers as outlined above. The amlodipine has been continued. I started him on losartan and his blood pressures have started to improve. He may need some additional adjustment to his antihypertensive medication following discharge. I will plan to see him in the office in 2 weeks. (4) Mixed hyperlipidemia Assessment & Plan: Continue statin medication. (5) Morbid obesity Status: Chronic Assessment & Plan: He needs to work on weight loss. Problem Qualifiers (1) Chest pain: Chest pain type: unspecified Qualified Codes: R07.9 - Chest pain, unspecified AD GENTILE JR, MD Dec 26, 2021 08:28
[2021-12-26] MEDS ORDERED: REGADENOSON 0.4 MG/5 ML SYR (LEXISCAN) IV ONE (08:44)
[2021-12-26] MEDS ORDERED: LOSARTAN 50 MG (COZAAR) TAB PO SCH (09:00)
--- NOTE | 2021-12-26 10:38 | Oncology Progress Note ---
[facility] 12/26/21 1038: Subjective Date Seen by a Provider: Dec 26, 2021 Time Seen by a Provider: 10:33 Subjective/Events-last exam Patient received a stress test and echo this morning. Overall, states that he feels much better and hopes to be discharged today Hgb is now at 9.6, WBC at 5.8, and Platelets at [id number]. Iron studies showed low saturation and low ferritin. Review of Systems General: No Chills, No Other (fevers) Pulmonary: No Dyspnea, No Cough Cardiovascular: Edema (L>R); No: Palpitations Gastrointestinal: No: Nausea, Vomiting, Abdominal Pain Musculoskeletal: leg pain (Left, chronic) Data Review Labs Laboratory Tests 12/26/21 05:53 Laboratory Tests 12/24/21 14:32: Arterial Blood pH 7.35L, Arterial Blood Partial Pressure CO2 51H, Arterial Blood Partial Pressure O2 30*L, Arterial Blood Oxygen Saturation 54L 12/24/21 14:46: White Blood Count 3.8L, Red Blood Count 3.51L, Hemoglobin 8.6L, Hematocrit 29L, Mean Corpuscular Hemoglobin Concent 30L, Red Cell Distribution Width 16.3H, Platelet Count 88L, Percent Immature Platelet Fraction 12.0H, Prothrombin Time 15.2H, Glucose Level 106H, Myoglobin 116.0H, B-Type Natriuretic Peptide 202.2H 12/24/21 15:34: 12/24/21 16:01: Arterial Blood Partial Pressure O2 69L 12/24/21 20:00: Red Blood Count 3.42L, Iron Level 22L, Total Iron Binding Capacity 333H, Transferrin % Saturation 7L, Ferritin 12.2L, Vitamin B12 Level >2000H 12/25/21 05:08: Red Blood Count 3.53L, Hemoglobin 8.6L, Hematocrit 29L, Mean Corpuscular Hemoglobin 24L, Mean Corpuscular Hemoglobin Concent 30L, Red Cell Distribution Width 16.4H, Platelet Count 103L, Glucose Level 118H, Total Protein 6.3L, HDL Cholesterol 34L 12/26/21 05:53: Red Blood Count 3.94L, Hemoglobin 9.6L, Hematocrit 31L, Mean Corpuscular Hemoglobin 24L, Mean Corpuscular Hemoglobin Concent 31L, Red Cell Distribution Width 16.2H, Platelet Count 118L, Glucose Level 121H, Percent Immature Platelet Fraction 8.9H, Total Bilirubin 1.3H Physical Exam Vital Signs Vital Signs - First Documented 12/24/21 14:22 Temp 36.2 Pulse 54 Resp 17 B/P (MAP) 161/90 (113) Pulse Ox 95 Capillary Refill : Height, Weight, BMI Height: '" Weight: lbs. oz. kg; 45.17 BMI Method: General Appearance: No Apparent Distress, Chronically ill, Obese Eyes: Bilateral Eye PERRL, Bilateral Eye EOMI HEENT: PERRL/EOMI, Moist Mucous Membranes Neck: Non Tender, Supple Respiratory: Lungs Clear, Normal Breath Sounds, No Accessory Muscle Use, No Respiratory Distress Cardiovascular: No Murmur, Normal Peripheral Pulses (radial pusles 2+) Gastrointestinal: Non Tender, Soft Extremity: No Calf Tenderness, Pedal Edema (Left) Neurologic/Psychiatric: Alert, Oriented x3, Normal Mood/Affect Skin: Normal Color, Warm/Dry Impression & Plan Impression & Plan Bradycardia - per cardiology Anemia - Iron studies are consistent with iron deficiency anemia - Hgb did improve to 9.6 - Continue oral iron supplementation - blood transfusion if below 7 per protocol Leukopenia - resolved (4.8 to 5.8) Thrombocytopenia - improved from 103 to 118 No Bone marrow biopsy indicated at this moment After discharge, Patient is scheduled for an appointment at the cancer clinic on February 26 Heme-Onc will sign off at this time Clinical Quality Measures DVT/VTE Risk/Contraindication: Other: nemia and low platelets YOLIS MATA MD 12/26/21 1349: Subjective Date Seen by a Provider: Dec 26, 2021 Time Seen by a Provider: 13:48 Supervisory-Addendum Brief Verification & Attestation Participated in pt care: history, MDM, physical Personally performed: exam, history, MDM, supervision of care Care discussed with: Medical Student Procedures: n/a Results interpretation: Verified all documentation I concur with the note ACE CROWLEY STUDTESFAYE Dec 26, 2021 10:38 YOLIS MATA MD Dec 26, 2021 13:49
[2021-12-26] MEDS: DOCUSATE SODIUM 100 MG (COLACE) CAP PO SCH (11:16)
[2021-12-26] MEDS: SENNOSIDES 8.6 MG (SENOKOT) TAB PO SCH (11:16)
[2021-12-26] MEDS: amLODIPine 5 MG (NORVASC) TAB PO SCH (11:17)
[2021-12-26] MEDS ORDERED: FERR-74 PO (12:27)
--- NOTE | 2021-12-26 14:27 | Progress Note ---
WIL[facility] CAR 12/26/21 1427: Progress Note Brief Hospital Course: Patient was admitted on 12/24/21 and discharged 12/26/21. Patient was admitted from the ED to cardiac step down 5th floor. He presented to the ED with the initial chief complaint of chest pain on 12/24/21. In the ED he had a troponin of less than 0.028. ECG in the ED showed sinus rhythm with right bundle branch block and no ST changes. HR was reported as 54 in the ED. Chest Xray showed, cardiomegaly and findings of pulmonary vascular congestion, and patchy interstitial opacities throughout the lungs which could be seen with pulmonary edema or atypical infection. On 12/24/21 he had an ABG pH of 7.35, and an pO2 of 30, repeat ABG pH was 7.38 with pO2 of 69 on the same date. The patient was determined to have symptomatic sinus bradycardia secondary to beta lili toxicity of carvedilol plus metoprolol use. Cardiology was consulted to rule out any coronary ischemic explanations to his bradycardia. He had an echocardiogram and a stress test preformed on 12/26/21. He was also found to be pancytopenic during his hospital course and hematology was consulted who determined him to be hematologically stable, and recommended oral iron therapy with a 2 mo outpatient hematology follow up. He had an abdominal US on 12/25/21 which showed mild hepatomegaly with no focal liver lesions. There was also cholelithiasis without other findings of cholecystitis noted. Prior to DC the patient underwent a home O2 evaluation by RT. On discharge he was sent home. Patient will continue on his cardiology medications, under the direction of cardiology, who plan to make changes to his cardiac medication regiment. This summary does not include the entirety of the patient's visit and is only a short description of pertinent lab values and information. For the complete hospital course, please refer to the patient's chart. Date of Admission: 12/24/21 Date of Discharge: 12/26/21 Attending Physician: Dr. Corrina Mckinney DO Admission Diagnosis: Symptomatic bradycardia Discharge Diagnosis: Beta lili toxicity resulting in symptomatic bradycardia Consultations: Cardiology, Hematology, RT Procedures: Echocardiogram, Stress test, Abdominal US. CORRINA MCKINNEY DO 12/27/21 8477: Supervisory-Addendum Brief Verification & Attestation Participated in pt care: history, MDM, physical Personally performed: exam, history, MDM, supervision of care Care discussed with: Medical Student Procedures: n/a Results interpretation: Verified all documentation Verification and Attestation of Medical Student E/M Service A medical student performed and documented this service in my presence. I reviewed and verified all information documented by the medical student and made modifications to such information, when appropriate. I personally performed the physical exam and medical decision making. Corrina Mckinney, Dec 27, 2021,05:46 [facility] CAR Dec 26, 2021 14:27 CORRINA MCKINNEY DO Dec 27, 2021 05:46
--- NOTE | 2021-12-26 15:31 | NUCLEAR STRESS TEST ---
REGADENOSON NUCLEAR STRESS Date of procedure: 12/26/2021. Primary care provider: Lj Maldonado MD Admitting physician: Corrina Mckinney DO. INDICATION: Abnormal electrocardiogram. BASELINE ELECTROCARDIOGRAM: Sinus rhythm with frequent premature supraventricular and ventricular complexes with nonspecific intraventricular conduction delay and nonspecific ST-T wave changes. STRESS TEST PROCEDURE: The patient was administered 0.4 mg of intravenous Regadenoson. The resting heart rate was 68 bpm and the peak heart rate was 89 bpm. The resting blood pressure was 243/109 mmHg and the minimum blood pressure was 195/85 mmHg. This represents a normal heart rate and a normal blood pressure response to Regadenoson with resting hypertension. The test was stopped due to the protocol. There was no chest discomfort during the test. There were premature supraventricular and premature ventricular complexes throughout the test. There were no significant stress induced electrocardiogram changes. NUCLEAR PROCEDURE: The patient was administered 10.9 mCi of intravenous technetium 99m Tetrofosmin at rest for the rest images. The patient was subsequently administered 32.5 mCi of intravenous technetium 99m Tetrofosmin at peak stress for the stress images. Following an appropriate wait after each injection, imaging was obtained. The images were subsequently processed and reformatted in the usual views. Gated imaging was obtained. The image quality was adequate with a mild degree of gastrointestinal attenuation artifact. CT attenuation correction was used as a adjunct to standard imaging. Both the corrected and uncorrected images were reviewed for interpretation. NUCLEAR RESULTS: There was a small, moderate intensity, fixed apical defect with no evidence of inducible ischemia. There was normal left ventricular chamber size with an end-diastolic volume of 101 mL and an end-systolic volume of 31 mL. There was no evidence of transient ischemic dilatation. The TID ratio was 1.1. There was normal wall motion in all segments with a calculated ejection fraction of 69%. IMPRESSION: 1. Normal heart rate and blood pressure response to regadenoson with resting hypertension. 2. There was no chest discomfort or electrocardiogram changes during the test. 3. There were isolated premature supraventricular and premature ventricular complexes throughout the test. 4. There was a small, moderate intensity, fixed apical defect with no evidence of inducible ischemia. 5. There was normal wall motion in all segments with a calculated ejection fraction of 69%. 6. This is an abnormal result although represents low risk for possible future coronary ischemic events. Certain portions of this document may have been dictated utilizing voice recognition technology. Inherent to this technology, typographical and grammatical errors may exist. As much as I am diligent to identify and correct these mistakes, some errors may remain in the document. AD GENTILE JR, MD Dec 26, 2021 15:31
[2021-12-26] MEDS ORDERED: LOSA50TA63 PO (16:02)
--- NOTE | 2021-12-26 16:14 | Discharge Summary ---
Discharge Summary Hospital Course Was the Problem List Reviewed?: Yes Problems/Dx: (1) Symptomatic sinus bradycardia Status: Acute (2) Chest pain Status: Acute Qualifiers: Qualified Codes: R07.9 - Chest pain, unspecified (3) Primary hypertension (4) Mixed hyperlipidemia (5) Morbid obesity Status: Chronic Hospital Course Date of Admission: Dec 24, 2021 at 18:11 Admission Diagnosis : Family Physician/Provider: Lj Maldonado MD Date of Discharge: 12/26/21 Discharge Diagnosis: Symptomatic bradycardia Hospital Course: Brief Hospital Course: Patient was admitted on 12/24/21 and discharged 12/26/21. Patient was admitted f rom the ED to cardiac step down 5th floor. He presented to the ED with the initial chief complaint of chest pain on 12/24/21. In the ED he had a troponin of less than 0.028. ECG in the ED showed sinus rhythm with right bundle branch block and no ST changes. HR was reported as 54 in the ED. Chest Xray showed, cardiomegaly and findings of pulmonary vascular congestion, and patchy int erstitial opacities throughout the lungs which could be seen with pulmonary edema or atypical infection. On 12/24/21 he had an ABG pH of 7.35, and an pO2 of 30, repeat ABG pH was 7.38 with pO2 of 69 on the same date. The patient was determined to have symptomatic sinus bradycardia secondary to beta lili toxicity of carvedilol plus metoprolol use. Cardiology was consulted to rule out any coronary ischemic explanations to his bradycardia. He had an echocardiogram and a stress test preformed on 12/26/21. He was also found to be pancytopenic during his hospital course and hematology was consulted who determined him to be hematologically stable, and recommended oral iron therapy with a 2 mo outpatient hematology follow up. He had an abdominal US on 12/25/21 which showed mild hepatomegaly with no focal liver lesions. There was also cholelithiasis without other findings of cholecystitis noted. Prior to DC the patient underwent a home O2 evaluation by RT. On discharge he was sent home. Patient will continue on his cardiology medications, under the direction of cardiology, who plan to make changes to his cardiac medication regiment. This summary does not include the entirety of the patient's visit and is only a short description of pertinent lab values and information. For the complete hospital course, please refer to the patient's chart. Date of Admission: 12/24/21 Date of Discharge: 12/26/21 Attending Physician: Dr. Makenzie Mckinney DO Admission Diagnosis: Symptomatic bradycardia Discharge Diagnosis: Beta lili toxicity resulting in symptomatic bradycardia Consultations: Cardiology, Hematology, RT Procedures: Echocardiogram, Stress test, Abdominal US. Labs and Pending Lab Test: Laboratory Tests 12/26/21 05:53: White Blood Count 5.8, Red Blood Count 3.94L, Hemoglobin 9.6L, Hematocrit 31L, Mean Corpuscular Volume 80, Mean Corpuscular Hemoglobin 24L, Mean Corpuscular Hemoglobin Concent 31L, Red Cell Distribution Width 16.2H, Platelet Count 118L, Mean Platelet Volume 11.8, Immature Granulocyte % (Auto) 0, Neutrophils (%) (Auto) 67, Lymphocytes (%) (Auto) 22, Monocytes (%) (Auto) 7, Eosinophils (%) (Auto) 3, Basophils (%) (Auto) 1, Neutrophils # (Auto) 3.9, Lymphocytes # (Auto) 1.3, Monocytes # (Auto) 0.4, Eosinophils # (Auto) 0.2, Basophils # (Auto) 0.0, Immature Granulocyte # (Auto) 0.0, Percent Immature Platelet Fraction 8.9H, Sodium Level 139, Potassium Level 3.6, Chloride Level 101, Carbon Dioxide Level 24, Anion Gap 14, Blood Urea Nitrogen 9, Creatinine 1.10, Estimat Glomerular Filtration Rate 74, BUN/Creatinine Ratio 8, Glucose Level 121H, Calcium Level 9.1, Corrected Calcium 9.0, Total Bilirubin 1.3H, Aspartate Amino Transf (AST/SGOT) 14, Alanine Aminotransferase (ALT/SGPT) 13, Alkaline Phosphatase 79, Total Protein 6.8, Albumin 4.1 Home Meds Active Losartan Potassium 50 Mg Tablet 50 Mg PO DAILY Ferrous Sulfate 325 Mg (65 Mg Iron) Tablet 325 Mg PO Q48H Reported Bumetanide 0.5 Mg Tablet 0.5 Mg PO DAILY Sildenafil Citrate 100 Mg Tablet 100 Mg PO UD PRN Vitamin D3 (Cholecalciferol (Vitamin D3)) 25 Mcg (1000 Unit) Capsule 25 Mcg PO HS Vitamin B-12 (Cyanocobalamin (Vitamin B-12)) 1,000 Mcg Tablet 1,000 Mcg PO DAILY Zinc 50 Mg Tablet 50 Mg PO HS Multivitamin 1 Each Tablet 1 Each PO HS Flomax (Tamsulosin HCl) 0.4 Mg Cap 0.4 Mg PO DAILY Rosuvastatin Calcium 20 Mg Tablet 20 Mg PO DAILY Hydrocodone-Acetamin 10-325 mg (Hydrocodone/Acetaminophen) 10 Mg-325 Mg Tablet 1 Ea PO TID PRN Pantoprazole Sodium 40 Mg Tablet.dr 40 Mg PO HS Amlodipine Besylate 5 Mg Tablet 5 Mg PO HS Metformin HCl 500 Mg Tablet 500 Mg PO BID WITH MEALS Assessment/Pt Instructions PCP in 1 week Discharge Planning: <30 minutes discharge planning Discharge Instructions Discharge Diet: No Restrictions Discharge Physical Examination Vital Signs Vital Signs Date Time Temp Pulse Resp B/P (MAP) Pulse Ox O2 Delivery O2 Flow Rate FiO2 12/26/21 15:31 37.0 71 22 152/90 (110) 93 Room Air 12/26/21 11:14 2.00 General Appearance: No Apparent Distress, WD/WN Allergies: Coded Allergies: No Known Drug Allergies (Unverified , 05/30/20) Discharge Summary Date of Admission Dec 24, 2021 at 18:11 Date of Discharge Discharge Date: Dec 26, 2021 Admission Diagnosis Assessment: Symptomatic bradycardia due to Coreg and metoprolol taken together Increased QT interval Pancytopenia Fatty liver on ultrasound Plan: Hold BB Cardiology consult ECHO USG Heme c/s Discharge Diagnosis (1) Symptomatic sinus bradycardia Status: Acute Assessment & Plan: I suspect this may have been due to taking 2 beta blockers at the same time. Beta blockers are now on hold. I recommend a stress test in the morning to exclude coronary ischemia as a possible cause of the bradycardia. (2) Chest pain Status: Acute Assessment & Plan: Etiology unclear. This sounds consistent with possible angina. In light of the bradycardia, I recommend a stress test as outlined above. Qualifiers: Qualified Codes: R07.9 - Chest pain, unspecified (3) Primary hypertension Assessment & Plan: He had been on amlodipine and 2 beta-blockers at home. We have stopped the beta-blockers as outlined above. The amlodipine has been continued. His blood pressure is intermittently elevated. I will start him on losartan. We will need to monitor his renal function closely. If he has persistent peripheral edema, we may want to consider stopping the amlodipine. (4) Mixed hyperlipidemia Assessment & Plan: Continue statin medication. (5) Morbid obesity Status: Chronic Assessment & Plan: He needs to work on weight loss. Clinical Quality Measures DVT/VTE Risk/Contraindication: Other: nemia and low platelets MAKENZIE MCKINNEY DO Dec 26, 2021 16:14
== END 2021-12-26 17:20 | disposition home or self-care (01) ==
LOC: EDUNIT# 14:17 → ER 14:23 → CSD 18:11
PROVIDERS: ADMIT Internal Medicine; ATTEND Internal Medicine
DX: R00.1 Bradycardia, unspecified (principal); R07.89 Other chest pain; R94.31 Abnormal electrocardiogram [ECG] [EKG]; I10 Essential (primary) hypertension; E78.5 Hyperlipidemia, unspecified; T50.995A Adverse effect of other drugs, medicaments and biological substances, initial encounter; D64.9 Anemia, unspecified; D72.819 Decreased white blood cell count, unspecified; D69.6 Thrombocytopenia, unspecified; I45.10 Unspecified right bundle-branch block; K76.0 Fatty (change of) liver, not elsewhere classified; E78.2 Mixed hyperlipidemia; E66.01 Morbid (severe) obesity due to excess calories; Z87.891 Personal history of nicotine dependence; Z79.899 Other long term (current) drug therapy; Z68.42 Body mass index [BMI] 45.0-49.9, adult
CPT/HCPCS: 71045; 76700; 78452; 80053 ×3; 80061; 82607; 82728; 82746; 82805; 82977; 83540; 83550; 83735; 83874; 83880; 84443; 84484; 85025 ×3; 85045; 85610; 85730; 87636; 93005 ×2; 93017; 93041; 93306; 94640 ×3; 94760 ×2; 94761; 96374; 99291; A9502; G0378 ×2; 36415

== ENCOUNTER 2021-12-30 12:30 | Outpatient (RCR) | payer MEDICARE, BC, OTHER ==
[~2021-12-30 12:30] MED LIST changes: +BUME0.5T5 PO; +CHOL10007 PO; +CYAN-41 PO; +FERR-74 PO; +HYDR-3820 PO; +LOSA50TA63 PO; +MULT-1136 PO; +ROSU20TA32 PO; +SILD100T67 PO; +TMSL.4C PO; +ZINC50TA58 PO
== END 2022-01-04 | disposition home or self-care (01) ==
LOC: CARD 12:30
PROVIDERS: ATTEND Internal Medicine Cardiovascular Disease
DX: R00.1 Bradycardia, unspecified (principal)

== ENCOUNTER 2022-02-26 12:30 | Outpatient (RCR) | payer MEDICARE, BC, OTHER ==
[2022-02-26 14:10] LABS: BASOPHILS % (AUTO) 0 % (0-10); MEAN PLATELET VOLUME 11.1 fL (9.0-12.2)
[2022-02-26 14:12] LABS: EOSINOPHILS # (AUTO) 0.2 10^3/uL (0.0-0.3); EOSINOPHILS % (AUTO) 3 % (0-10); HEMATOCRIT 36 % (40-54); LYMPHOCYTES # (AUTO) 1.4 10^3/uL (1.0-4.0); LYMPHOCYTES % (AUTO) 22 % (12-44); MEAN CORPUSCULAR HEMOGLOBIN 28 pg (25-34); MEAN CORPUSCULAR HGB CONC 33 g/dL (32-36); MEAN CORPUSCULAR VOLUME 85 fL (80-99); MONOCYTES # (AUTO) 0.4 10^3/uL (0.0-1.0); MONOCYTES % (AUTO) 6 % (0-12); NEUTROPHILS # (AUTO) 4.3 10^3/uL (1.8-7.8); NEUTROPHILS % (AUTO) 69 % (42-75); PLATELET COUNT 128 10^3/uL (130-400); WHITE BLOOD COUNT 6.2 10^3/uL (4.3-11.0)
[2022-02-26 14:26] LABS: BILIRUBIN,TOTAL 0.7 MG/DL (0.1-1.0); CALCIUM 8.6 MG/DL (8.5-10.1); CREATININE SERUM 1.13 MG/DL (0.60-1.30); POTASSIUM 3.7 MMOL/L (3.6-5.0); TOTAL PROTEIN 7.1 GM/DL (6.4-8.2)
== END 2022-03-06 | disposition home or self-care (01) ==
LOC: ONC 12:30
PROVIDERS: ATTEND Internal Medicine Hematology & Oncology
DX: D61.818 Other pancytopenia (principal); K70.30 Alcoholic cirrhosis of liver without ascites
CPT/HCPCS: 80053; 82728; 83540; 83550; 85025; G0463; 36415; 99204

== ENCOUNTER → 2022-03-18 | Outpatient (CLI) | payer MEDICARE, BC, OTHER ==
--- NOTE | 2022-03-18 12:17 | Diagnostic Imaging Report ---
Indication: Left shoulder pain. Time of Exam: 12:14 PM 3 views left shoulder demonstrate normal glenohumeral and acromial clavicular alignment. Acromial humeral space is normal. No fracture or dislocation is seen. IMPRESSION: No acute bony abnormality is detected. Dictated by: Dictated on workstation # [id number]
== END ==
LOC: RAD FS 12:01
PROVIDERS: ATTEND Allergy & Immunology
DX: M25.512 Pain in left shoulder (principal)
CPT/HCPCS: 73030

== ENCOUNTER 2022-08-21 13:59 | Outpatient (RCR) | payer MEDICARE, BC, OTHER ==
[2022-08-21 14:16] LABS: EOSINOPHILS # (AUTO) 0.1 10^3/uL (0.0-0.3); EOSINOPHILS % (AUTO) 2 % (0-10); LYMPHOCYTES # (AUTO) 1.6 10^3/uL (1.0-4.0)
[2022-08-21 14:18] LABS: BASOPHILS % (AUTO) 0 % (0-10); HEMATOCRIT 44 % (40-54); HEMOGLOBIN 14.9 g/dL (13.3-17.7); LYMPHOCYTES % (AUTO) 29 % (12-44); MEAN CORPUSCULAR HEMOGLOBIN 31 pg (25-34); MEAN CORPUSCULAR HGB CONC 34 g/dL (32-36); MEAN CORPUSCULAR VOLUME 91 fL (80-99); MEAN PLATELET VOLUME 10.9 fL (9.0-12.2); MONOCYTES # (AUTO) 0.4 10^3/uL (0.0-1.0); MONOCYTES % (AUTO) 6 % (0-12); NEUTROPHILS # (AUTO) 3.5 10^3/uL (1.8-7.8); NEUTROPHILS % (AUTO) 62 % (42-75); PLATELET COUNT 111 10^3/uL (130-400); WHITE BLOOD COUNT 5.7 10^3/uL (4.3-11.0)
[2022-08-21 14:35] LABS: ALBUMIN 4.3 GM/DL (3.2-4.5); CALCIUM 9.1 MG/DL (8.5-10.1); CREATININE SERUM 1.14 MG/DL (0.60-1.30); POTASSIUM 4.1 MMOL/L (3.6-5.0); TOTAL PROTEIN 7.6 GM/DL (6.4-8.2)
== END 2022-09-06 | disposition home or self-care (01) ==
LOC: ONC 13:59
PROVIDERS: ATTEND Internal Medicine Hematology & Oncology
DX: D61.818 Other pancytopenia (principal); K70.30 Alcoholic cirrhosis of liver without ascites; I10 Essential (primary) hypertension; D64.9 Anemia, unspecified; E78.2 Mixed hyperlipidemia; E66.01 Morbid (severe) obesity due to excess calories; E11.9 Type 2 diabetes mellitus without complications
CPT/HCPCS: 80053; 82728; 83540; 83550; 85025; G0463; 36415; 99213

== ENCOUNTER 2023-02-26 12:59 | Outpatient (RCR) | payer MEDICARE, BC, OTHER ==
[2023-02-26 13:17] LABS: BASOPHILS % (AUTO) 0 % (0-10); MONOCYTES # (AUTO) 0.3 10^3/uL (0.0-1.0)
[2023-02-26 13:19] LABS: EOSINOPHILS # (AUTO) 0.1 10^3/uL (0.0-0.3); EOSINOPHILS % (AUTO) 3 % (0-10); HEMATOCRIT 42 % (40-54); HEMOGLOBIN 14.7 g/dL (13.3-17.7); LYMPHOCYTES # (AUTO) 1.3 10^3/uL (1.0-4.0); LYMPHOCYTES % (AUTO) 26 % (12-44); MEAN CORPUSCULAR HEMOGLOBIN 32 pg (25-34); MEAN CORPUSCULAR HGB CONC 35 g/dL (32-36); MEAN CORPUSCULAR VOLUME 92 fL (80-99); MEAN PLATELET VOLUME 10.8 fL (9.0-12.2); MONOCYTES % (AUTO) 5 % (0-12); NEUTROPHILS # (AUTO) 3.1 10^3/uL (1.8-7.8); NEUTROPHILS % (AUTO) 65 % (42-75); PLATELET COUNT 97 10^3/uL (130-400); WHITE BLOOD COUNT 4.8 10^3/uL (4.3-11.0)
[2023-02-26 13:37] LABS: ALBUMIN 4.1 GM/DL (3.2-4.5); CALCIUM 8.8 MG/DL (8.5-10.1); CREATININE SERUM 1.18 MG/DL (0.60-1.30); POTASSIUM 3.9 MMOL/L (3.6-5.0); TOTAL PROTEIN 7.1 GM/DL (6.4-8.2)
== END 2023-03-06 | disposition home or self-care (01) ==
LOC: ONC 12:59
PROVIDERS: ATTEND Internal Medicine Hematology & Oncology
DX: D61.818 Other pancytopenia (principal); K70.30 Alcoholic cirrhosis of liver without ascites; I10 Essential (primary) hypertension; D64.9 Anemia, unspecified; E78.2 Mixed hyperlipidemia; E66.01 Morbid (severe) obesity due to excess calories; E11.9 Type 2 diabetes mellitus without complications
CPT/HCPCS: 36415; 80053; 82728; 83540; 83550; 85025